=== PATIENT | male | born 1940 | race Caucasian/White ===

== ENCOUNTER 2016-09-21 11:04 | Inpatient (IN) | payer OTHER, MEDICARE ==
[2016-09-21] MEDS ORDERED: DILTIAZEM 5 MG/ML 5 ML VIAL IVP STA (11:43)
--- NOTE | 2016-09-21 11:45 | ED ---
General Adult HPI - General Chief complaint: Chest Pain Stated complaint: Cardiac Issues Time Seen by Provider: 09/21/16 11:27 Source: patient, RN notes reviewed Mode of arrival: EMS Limitations: no limitations - History of Present Illness Initial comments: Patient is a pleasant 76-year-old male presenting to the emergency Department with defibrillator firing. Patient states that has occurred 5 times so far today. Patient admits to not taking his Cardizem recently because he ran out. Patient otherwise feels fine. Patient denies any syncope. No chest pain or dyspnea. Patient is somewhat a poor historian. - Related Data Home Medications Medication Instructions Recorded Confirmed Budesonide-Formot 160-4.5 Mcg 2 puff INHALATION RT-BID 07/09/14 09/21/16 [Symbicort 160-4.5 Mcg Inhaler] Lisinopril-Hctz 20-12.5 mg 1 tab PO DAILY 07/09/14 09/21/16 [Zestoretic 20-12.5] Warfarin [Coumadin] 1.5 mg PO HS 07/09/14 09/21/16 HYDROcodone/APAP 10-325MG [Lopez 0.5 tab PO TID PRN 08/12/14 09/21/16 10-325] Albuterol Nebulized [Ventolin 2.5 mg INHALATION RT-Q6H PRN 09/21/16 09/21/16 Nebulized] Albuterol Sulfate [Proventil Hfa] 2 puff INHALATION RT-Q6H PRN 09/21/16 09/21/16 Furosemide [Lasix] 20 mg PO DAILY PRN 09/21/16 09/21/16 Tiotropium 18 Mcg/Puff [Spiriva] 1 cap INHALATION RT-DAILY 09/21/16 09/21/16 Allergies Allergy/AdvReac Type Severity Reaction Status Date / Time No Known Allergies Allergy Verified 09/21/16 12:00 Review of Systems ROS Statement: Those systems with pertinent positive or pertinent negative responses have been documented in the HPI. ROS Other: All systems not noted in ROS Statement are negative. Constitutional: Denies: fever Eyes: Denies: eye pain ENT: Denies: ear pain Respiratory: Denies: cough, dyspnea Cardiovascular: Denies: chest pain Endocrine: Denies: fatigue Gastrointestinal: Denies: abdominal pain Genitourinary: Denies: dysuria Musculoskeletal: Denies: back pain Skin: Denies: rash Neurological: Denies: weakness Past Medical History Past Medical History: COPD, Myocardial Infarction ([place]), Osteoarthritis ([place]), Pneumonia, Prostate Disorder Additional Past Medical History / Comment(s): See Dr Puja Damon & P, rash on top of head, Last Myocardial Infarction Date:: 2012 History of Any Multi-Drug Resistant Organisms: None Reported Past Surgical History: Heart Catheterization, Tonsillectomy Additional Past Surgical History / Comment(s): cardioversion, cataract removed, left hand finger surgery Past Anesthesia/Blood Transfusion Reactions: Motion Sickness Additional Past Anesthesia/Blood Transfusion Reaction / Comment(s): PT HAS NEVER HAD A BLOOD TRANSFUSION. Past Psychological History: No Psychological Hx Reported Additional Psychological History / Comment(s): PT LIVES ALONE WITH HIS DOG. HIS . HE is INDEPENDENT. HE DRIVES A CAR. Smoking Status: Current every day smoker Past Alcohol Use History: None Reported Additional Past Alcohol Use History / Comment(s): STARTED SMOKING AT AGE 13 SMOKED 1 PPD BUT HAS DECREASED AMOUNT TO 2-3 PER DAY Past Drug Use History: None Reported - Past Family History Father Family Medical History: Cancer, Prostate Disorder Additional Family Medical History / Comment(s): FATHER HAD PROSTATE CANCER Mother Family Medical History: No Reported History Additional Family Medical History / Comment(s): MOTHER IS ALIVE AT 94 AND IN EXCELLENT HEALTH. General Exam Limitations: no limitations General appearance: alert, in no apparent distress Head exam: Present: atraumatic Eye exam: Present: normal appearance, PERRL ENT exam: Present: normal oropharynx Neck exam: Present: normal inspection Respiratory exam: Present: normal lung sounds bilaterally Cardiovascular Exam: Present: tachycardia, irregular rhythm GI/Abdominal exam: Present: soft. Absent: tenderness Extremities exam: Present: normal inspection. Absent: pedal edema, calf tenderness Back exam: Present: normal inspection Neurological exam: Present: alert Psychiatric exam: Present: normal affect, normal mood Skin exam: Absent: rash Course Vital Signs 09/21/16 09/21/16 11:09 12:14 Temperature 98.4 F Pulse Rate 131 H 120 H Respiratory 20 18 Rate Blood Pressure 141/121 171/109 O2 Sat by Pulse 95 99 Oximetry EKG Findings - EKG Comments: EKG Findings:: A. fib with RVR, rate 123. QRS 120. QT 358. QTC 512. Left axis. Right bundle branch block. No acute ST change. Medical Decision Making - Medical Decision Making Patient reexamined and resting comfortably in bed. Patient and family updated on results and plan. Case was discussed in detail with cardiology, Dr. Williamson who does recommend Cardizem drip at 5 per hour. Agrees with no additional anticoagulation at this time. [email or web address] has been consulted however still waiting for device analysis. Dr. Mccain has been paged for admission for Dr. Baker - Lab Data Result diagrams: 09/21/16 11:31 09/21/16 11:31 Lab Results 09/21/16 09/21/16 09/21/16 Range/Units 11:31 11:31 11:31 WBC 6.4 (3.8-10.6) k/uL RBC 4.00 L (4.30-5.90) m/uL Hgb 13.3 (13.0-17.5) gm/dL Hct 41.2 (39.0-53.0) % MCV 103.0 H (80.0-100.0) fL MCH 33.4 (25.0-35.0) pg MCHC 32.4 (31.0-37.0) g/dL RDW 15.2 (11.5-15.5) % Plt Count 152 (150-450) k/uL Neutrophils % 80 % Lymphocytes % 10 % Monocytes % 8 % Eosinophils % 1 % Basophils % 0 % Neutrophils # 5.1 (1.3-7.7) k/uL Lymphocytes # 0.6 L (1.0-4.8) k/uL Monocytes # 0.5 (0-1.0) k/uL Eosinophils # 0.1 (0-0.7) k/uL Basophils # 0.0 (0-0.2) k/uL Macrocytosis Slight PT (9.0-12.0) sec INR (<1.1) APTT (22.0-30.0) sec Sodium 144 (137-145) mmol/L Potassium 4.3 (3.5-5.1) mmol/L Chloride 105 (98-107) mmol/L Carbon Dioxide 28 (22-30) mmol/L Anion Gap 11 mmol/L BUN 14 (9-20) mg/dL Creatinine 0.90 (0.66-1.25) mg/dL Est GFR (MDRD) Af Amer >60 (>60 ml/min/1.73 sqM) Est GFR (MDRD) Non-Af >60 (>60 ml/min/1.73 sqM) Glucose 89 (74-99) mg/dL Calcium 9.4 (8.4-10.2) mg/dL Magnesium 1.6 (1.6-2.3) mg/dL Total Bilirubin 1.4 H (0.2-1.3) mg/dL AST 25 (17-59) U/L ALT 33 (21-72) U/L Alkaline Phosphatase 70 (38-126) U/L Total Creatine Kinase 138 (55-170) U/L CK-MB (CK-2) 5.5 H* (0.0-2.4) ng/mL CK-MB (CK-2) Rel Index 4.0 Troponin I 0.176 H* (0.000-0.034) ng/mL Total Protein 6.6 (6.3-8.2) g/dL Albumin 4.0 (3.5-5.0) g/dL TSH 2.290 (0.465-4.680) mIU/L Free T4 1.14 (0.78-2.19) ng/dL Free T3 pg/mL 3.6 (2.8-5.3) pg/ml 09/21/16 Range/Units 11:31 WBC (3.8-10.6) k/uL RBC (4.30-5.90) m/uL Hgb (13.0-17.5) gm/dL Hct (39.0-53.0) % MCV (80.0-100.0) fL MCH (25.0-35.0) pg MCHC (31.0-37.0) g/dL RDW (11.5-15.5) % Plt Count (150-450) k/uL Neutrophils % % Lymphocytes % % Monocytes % % Eosinophils % % Basophils % % Neutrophils # (1.3-7.7) k/uL Lymphocytes # (1.0-4.8) k/uL Monocytes # (0-1.0) k/uL Eosinophils # (0-0.7) k/uL Basophils # (0-0.2) k/uL Macrocytosis PT 18.4 H (9.0-12.0) sec INR 1.9 (<1.1) APTT 31.2 H (22.0-30.0) sec Sodium (137-145) mmol/L Potassium (3.5-5.1) mmol/L Chloride (98-107) mmol/L Carbon Dioxide (22-30) mmol/L Anion Gap mmol/L BUN (9-20) mg/dL Creatinine (0.66-1.25) mg/dL Est GFR (MDRD) Af Amer (>60 ml/min/1.73 sqM) Est GFR (MDRD) Non-Af (>60 ml/min/1.73 sqM) Glucose (74-99) mg/dL Calcium (8.4-10.2) mg/dL Magnesium (1.6-2.3) mg/dL Total Bilirubin (0.2-1.3) mg/dL AST (17-59) U/L ALT (21-72) U/L Alkaline Phosphatase (38-126) U/L Total Creatine Kinase (55-170) U/L CK-MB (CK-2) (0.0-2.4) ng/mL CK-MB (CK-2) Rel Index Troponin I (0.000-0.034) ng/mL Total Protein (6.3-8.2) g/dL Albumin (3.5-5.0) g/dL TSH (0.465-4.680) mIU/L Free T4 (0.78-2.19) ng/dL Free T3 pg/mL (2.8-5.3) pg/ml - Radiology Data Radiology results: image reviewed (Two-view chest x-ray shows no acute process.) Critical Care Time Critical Care Time: Yes Total Critical Care Time: 33 Disposition Clinical Impression: Defibrillator discharge, Atrial fibrillation, rapid Disposition: ADMITTED IP TO THIS HOSP
[2016-09-21 12:16] LABS: Basophils % (A) 0 %; CH 33.3; CHCM 32.6; Eosinophils # (A) 0.1 k/uL (0-0.7); Eosinophils % (A) 1 %; HCT 41.2 % (39.0-53.0); HDW 2.83; HGB 13.3 gm/dL (13.0-17.5); Luc # (Auto) 0.06; Luc % (Auto) 1; Lymphocytes # (A) 0.6 k/uL (1.0-4.8); Lymphocytes % (A) 10 %; MCH 33.4 pg (25.0-35.0); MCHC 32.4 g/dL (31.0-37.0); Macrocytosis Slight; Mean Platelet Volume 9.3; Monocytes # (A) 0.5 k/uL (0-1.0); Monocytes % (A) 8 %; Neutrophils # (A) 5.1 k/uL (1.3-7.7); Neutrophils % (A) 80 %; RDW 15.2 % (11.5-15.5); WBC 6.4 k/uL (3.8-10.6); WBC (Perox) 6.31
[2016-09-21 12:32] LABS: INR 1.9 (<1.1); Partial Thromboplastin Time 31.2 sec (22.0-30.0); Prothrombin Time 18.4 sec (9.0-12.0)
[2016-09-21 12:39] LABS: ALT 33 U/L (21-72); AST 25 U/L (17-59); Alkaline Phosphatase 70 U/L (38-126); Anion Gap 11 mmol/L; Blood Urea Nitrogen 14 mg/dL (9-20); Calcium 9.4 mg/dL (8.4-10.2); Carbon Dioxide 28 mmol/L (22-30); Chloride 105 mmol/L (98-107); Glucose 89 mg/dL (74-99); Magnesium 1.6 mg/dL (1.6-2.3); Non-African American GFR(MDRD) >60 (>60 ml/min/1.73 sqM); Potassium 4.3 mmol/L (3.5-5.1); Sodium 144 mmol/L (137-145); Total Bilirubin 1.4 mg/dL (0.2-1.3); Total Protein 6.6 g/dL (6.3-8.2)
--- NOTE | 2016-09-21 12:41 | XR ---
EXAMINATION TYPE: XR chest 2V DATE OF EXAM: 09/21/2016 12:37 PM COMPARISON: 01/08/2015. HISTORY: Dysrhythmia FINDINGS: The lungs are clear and there is no pneumothorax, pleural effusion, or focal pneumonia. Hypertrophi c degenerative change of the spine. Cardiomegaly, cardiac device, and hyperinflation suggests COPD. Arthropathy of the shoulders noted. IMPRESSION: 1. No acute process.
[2016-09-21 13:01] LABS: Creatine Kinase MB 5.5 ng/mL (0.0-2.4); Troponin I 0.176 ng/mL (0.000-0.034)
[2016-09-21] MEDS ORDERED: FUROSEMIDE 20 MG TAB PO PRN (13:39)
[2016-09-21] MEDS ORDERED: ALBUTEROL INHALER 60 PUFF/8 GM INHALER INHALATION PRN (13:39)
[2016-09-21] MEDS ORDERED: NITROGLYCERIN SL TABS 0.4 MG TAB SUBLINGUAL PRN (13:44)
[2016-09-21] MEDS ORDERED: DILTIAZEM 125 MG in SODIUM CHLORIDE 0.9% 100 ML IV SCH (14:00)
[2016-09-21] MEDS ORDERED: Magnesium Replacement Protocol 1 EACH MISC MISCELLANE PRN (16:40)
--- NOTE | 2016-09-21 17:07 | CONS ---
DATE OF CONSULTATION: 09/21/2016 CHIEF COMPLAINT: Defibrillator discharge. This is a 76-year-old gentleman with history of cardiomyopathy with congestive heart failure, status post AICD, chronic atrial fibrillation and COPD who comes to hospital having had defibrillator discharge x5. He was in atrial fibrillation with rapid ventricular rate, and the defibrillator went off as a result. His defibrillator had been evaluated and his shocks were the result of atrial fibrillation with RVR. Past medical history is significant for: 1. Cardiomyopathy. 2. Congestive heart failure. 3. Coronary artery disease. 4. COPD. 5. Atrial fibrillation. Medications include: 1. Zestoretic. 2. Coumadin. 3. Albuterol. 4. Symbicort. 5. Lasix. 6. Spiriva. ALLERGIES: NO KNOWN DRUG ALLERGIES. FAMILY HISTORY: Negative for premature coronary artery disease. Social history is significant for smoking. REVIEW OF SYSTEMS: HEENT: Unremarkable. CARDIAC: As described above. RESPIRATORY: As described above. GI: Negative. GENITOURINARY: Negative. ALLERGY/IMMUNOLOGY: Negative. MUSCULOSKELETAL: Significant for arthritis. PSYCHOSOCIAL: Negative. ENDOCRINE: Negative. NEUROLOGIC: Negative. DERMATOLOGY: Negative. CONSTITUTIONAL: Negative. Rest of the system review is not relevant. On exam, comfortable at rest. Heart rate is 85 beats per minute. Blood pressure is 136/60. Respiratory rate is 18. Chest exam reveals diminished air entry at the bases. Heart exam reveals first and second heart sounds, irregular rhythm, and a systolic murmur at the left lower sternal border. Abdomen is soft. Examination of the extremities did not reveal any edema. Peripheral pulses are felt. Troponin is elevated at 0.176. Creatinine is 0.9. Hemoglobin is 13.3. Platelet count is 152. EKG shows atrial fibrillation with rapid ventricular rate with right bundle branch block. INR is 1.9. ASSESSMENT: 1. Status post automatic implantable cardioverter defibrillator discharge. 2. Atrial fibrillation with rapid ventricular rate. 3. Ischemic cardiomyopathy. 4. Coronary artery disease. 5. Mild troponin elevation. 6. Chronic atrial fibrillation with rapid ventricular rate. PLAN: AICD discharge is probably related to the atrial fibrillation with RVR. I am going to review the AICD data. Stop the Cardizem. Start him on Coreg. Patient was out of his medications. Obtain a 2-D echo to document his LV function. We can hopefully discharge him home tomorrow.
[2016-09-21] MEDS: ALBUTEROL NEBULIZED 2.5 MG/3 ML INHALATION PRN ×2 (17:09→20:01)
[2016-09-21] MEDS: CARVEDILOL 6.25 MG TAB PO SCH (17:28)
[2016-09-21] MEDS: MAGNESIUM SULFATE-D5W PMX 1 GM in DEXTROSE/WATER 1 100ML.BAG IVPB SCH ×2 (17:28→19:17)
[2016-09-21] MEDS: HYDROcodone/APAP 10-325MG 1 EACH TAB PO PRN (18:33)
[2016-09-21 19:05] LABS: Creatine Kinase MB 7.8 ng/mL (0.0-2.4); Troponin I 1.34 ng/mL (0.000-0.034)
[2016-09-21] MEDS ORDERED: FUROSEMIDE 10 MG/ML 4 ML VIAL IV STA (19:44)
[2016-09-21] MEDS: SYMBICORT 160-4.5 MCG INHALER INHALATION SCH (20:08)
[2016-09-21 20:09] VITALS: RESP 20
[2016-09-21] MEDS ORDERED: WARFARIN 1.5 MG TAB PO SCH (21:00)
[2016-09-22 01:01] LABS: Creatine Kinase MB 8.2 ng/mL (0.0-2.4); Troponin I 1.12 ng/mL (0.000-0.034)
[2016-09-22] MEDS: HYDROcodone/APAP 10-325MG 1 EACH TAB PO PRN (05:16)
[2016-09-22 05:32] VITALS: PULSE 106
[2016-09-22] MEDS: CARVEDILOL 6.25 MG TAB PO SCH (07:26)
[2016-09-22] MEDS: SYMBICORT 160-4.5 MCG INHALER INHALATION SCH (07:56)
[2016-09-22] MEDS ORDERED: TIOTROPIUM 18 MCG/PUFF INHALER INHALATION SCH (08:00)
[2016-09-22 08:25] VITALS: BP 168/104; TEMP 96.9
--- NOTE | 2016-09-22 08:38 | PN ---
Murphy is a 76-year-old gentleman with history of cardiomyopathy, status post AICD, who presented to the hospital having had multiple defibrillations at home. I reviewed his AICD data. Patient had sustained VT and was successfully shocked and also has had ATP. He was also in A. fib with rapid ventricular rate. This morning he is doing well and has had short runs of nonsustained VT, but otherwise remained in A. fib. He is anxious to go home and will probably sign out if we do not let him go. His BNP was elevated. He is very noncompliant with therapy. He was started back on Lasix yesterday. He was also not taking his beta blockers and KATERINE inhibitors. His troponins have come back elevated probably due to the recurrent shocks that he had. Patient does not have any chest pain. His shortness of breath and leg edema had improved. On exam, heart rate is 106 beats per minute, blood pressure 170/90, respiratory rate 18. Chest exam reveals good air entry bilaterally. Heart exam reveals first and second heart sounds. No gallop. Abdomen is soft. Exam of the extremities revealed trace edema. Patient is currently on Coreg 6.25 b.i.d. He is on Lasix, lisinopril, hydrochlorothiazide. ASSESSMENT: 1. Acute exacerbation of chronic congestive heart failure. 2. Ventricular tachycardia, status post AICD discharge. 3. Atrial fibrillation with rapid ventricular rate. 4. Non-ST segment elevation myocardial infarction. PLAN: I am going to start the patient on amiodarone, increase the dose of Coreg to 12.5 b.i.d. to better control his blood pressure. Continue the KATERINE inhibitors. Continue the Coumadin. Patient I do not think will stay here. Will discharge him home and continue to optimize therapies as outpatient.
[2016-09-22] MEDS ORDERED: LISINOPRIL-HCTZ 20-12.5 MG 1 EACH TAB PO SCH (09:00)
[2016-09-22] MEDS ORDERED: ASPIRIN 325 MG TAB PO SCH (09:00)
[2016-09-22] MEDS ORDERED: AMIODARONE 200 MG TAB PO SCH (09:00)
--- NOTE | 2016-09-22 10:42 | ECHOF ---
Referral Reason:Elevated trops MEASUREMENTS -------- HEIGHT: 182.9 cm WEIGHT: 67.1 kg BP: 170/90 IVSd: 1.1 cm (0.6 - 1.1) LVIDd: 4.7 cm (3.9 - 5.3) LVPWd: 1.2 cm (0.6 - 1.1) IVSs: 1.3 cm LVIDs: 4.6 cm LVPWs: 1.4 cm Ao Diam: 3.8 cm (2.0 - 3.7) AV Cusp: 1.4 cm (1.5 - 2.6) LA Diam: 3.6 cm (2.7 - 3.8) MV EXCURSION: 8.330 mm (> 18.000) MV EF SLOPE: 75 mm/s (70 - 150) EPSS: 1.6 cm MV E Seun: 0.87 m/s MV DecT: 171 ms MV A Seun: 0.53 m/s MV E/A Ratio: 1.63 RAP: 5.00 mmHg RVSP: 34.87 mmHg FINDINGS -------- Sinus rhythm. AICD This was a technically good study. There is borderline concentric left ventricular hypertrophy. There is severe global hypokinesis of LV . Overall left ventricular systolic function is severely impaired with, an EF between 20 - 25 %. The right ventricle is normal in size and function. The left atrium is normal in size. The right atrium is normal in size. Aortic valve is trileaflet and is mildly thickened. The mitral valve leaflets are mildly thickened. Mild mitral regurgitation is present. Moderate tricuspid regurgitation present. The right ventricular systolic pressure, as measured by Doppler, is 34.87mmHg. Pulmonic valve appears structurally normal. The aortic root size is normal. The pericardium is normal. CONCLUSIONS -------- 1. Sinus rhythm. 2. Aortic valve is trileaflet and is mildly thickened. 3. The mitral valve leaflets are mildly thickened. 4. Mild mitral regurgitation is present. 5. Moderate tricuspid regurgitation present. 6. The right ventricular systolic pressure, as measured by Doppler, is 34.87mmHg. 7. Pulmonic valve appears structurally normal. 8. The aortic root size is normal. 9. The pericardium is normal. 10. AICD 11. This was a technically good study. 12. There is borderline concentric left ventricular hypertrophy. 13. There is severe global hypokinesis of LV . 14. Overall left ventricular systolic function is severely impaired with, an EF between 20 - 25 %. 15. The right ventricle is normal in size and function. 16. The left atrium is normal in size. 17. The right atrium is normal in size. CELL BUILDER: Della Marrufo RDCS
--- NOTE | 2016-09-22 10:54 | CDI ---
In responding to this query, please exercise your independent professional judgment. The [facility] Coding Staff and Clinical Documentation Specialists appreciate your assistance in clarifying documentation, maintaining compliance with coding guidelines, accurately documenting patients condition and capturing severity of illness. The fact that a question is asked does not imply that any particular answer is desired or expected. Communication forms are a method of clarifying documentation and are not made part of the Legal Health Record. Thank you in advance for your clarification. Last Revision, October 2015 [facility] [place] [address] [place] [address] Documentation Clarification Form Date: 09/22/2016 10:43:00 AM From: Maritza Weldon RN, CCDS Admit Date: 09/21/2016 1:45:00 PM Patient Name: Murphy Davidson Visit Number: [id number] Dr. Rusty Celeste CHF is documented in the Cardiology progress note. History/Risk Factors: Med noncompliant, CHF, AICD, Atrial Fib, PA this admission, [place] Clinical Indicators: 09/22 Cardiology Progress Note: "Acute exacerbation of chronic congestive heart failure." VS/Pulse OX: temp 98.4, HR 131, RR20, B/P 141/121, spo2 95% 2l NC BNP: 4670 09/22/16 Echocardiogram Results: severe global hypokinesis of LV. EF 20-25% Chest X Ray:- Treatment: Lasix 40mg IVP x1 followed by 20 Mg PO QD Zestoretic 20/12.5 PO QD Consults: cardiology In your professional opinion, can you please clarify the acuity and type of CHF if known? Acute Chronic Acute on Chronic AND Systolic Diastolic Systolic and Diastolic Cor Pulmonale (Right Sided HF w/ Pulmonary HTN) Unable to determine Other, please specify If known, please specify if Heart Failure is due to: Hypertension Rheumatic Fever Please document in your progress notes and discharge summary in order to capture severity of illness and risk of mortality. Include clinical findings that support your diagnosis. FYI: Press F11 to launch patient chart. Place X here if this finding has no clinical significance, is not applicable or if you are not able to provide any additional documentation. MTDD
--- NOTE | 2016-09-29 12:43 | HP ---
This dictation is both H&P and Discharge Summary. DATE OF ADMISSION: DATE OF SERVICE: 09/21/2016 Patient left AMA before being seen by Medical Service.
--- NOTE | 2016-09-30 10:19 | PN ---
ADDENDUM: The patient had acute exacerbation of chronic systolic congestive heart failure. The patient had known cardiomyopathy with severe LV systolic dysfunction. This should be part of the record. This is in response to documentation clarification query.
== END 2016-09-22 11:44 | disposition left against medical advice (07) | DRG 280 ==
LOC: EC 11:04 → 6SEL 13:45
PROVIDERS: ADMIT Internal Medicine; ATTEND Internal Medicine
DX: I21.4 Non-ST elevation (NSTEMI) myocardial infarction (principal); I50.23 Acute on chronic systolic (congestive) heart failure; I47.2 Ventricular tachycardia; I48.2 Chronic atrial fibrillation; J44.9 Chronic obstructive pulmonary disease, unspecified; Z91.19 Patient's noncompliance with other medical treatment and regimen; Z95.810 Presence of automatic (implantable) cardiac defibrillator; I25.10 Atherosclerotic heart disease of native coronary artery without angina pectoris; I25.5 Ischemic cardiomyopathy; F17.200 Nicotine dependence, unspecified, uncomplicated; I25.2 Old myocardial infarction; Z98.49 Cataract extraction status, unspecified eye; M19.90 Unspecified osteoarthritis, unspecified site; N42.9 Disorder of prostate, unspecified; Z79.01 Long term (current) use of anticoagulants; Z79.51 Long term (current) use of inhaled steroids; Z79.899 Other long term (current) drug therapy
CPT/HCPCS: 36415; 71020; 80053; 80061; 82550; 82553; 83735; 83880; 84439; 84443; 84481; 84484; 85025; 85610; 85730; 93005; 93306; 94640; 96365; 96366; 96376; 99291

== ENCOUNTER 2017-01-21 09:01 | Inpatient (IN) | payer MEDICARE ==
[2017-01-21] MEDS ORDERED: MAGNESIUM HYDROXIDE 2,400 MG/10 ML CUP PO PRN (10:24)
[2017-01-21] MEDS ORDERED: MAG HYDROX/AL HYDROX/SIMETH 30 ML CUP PO PRN (10:24)
[2017-01-21] MEDS ORDERED: ACETAMINOPHEN TAB 325 MG TAB PO PRN (10:24)
[2017-01-21] MEDS ORDERED: ALPRAZolam 0.25 MG TAB PO PRN (10:40)
[2017-01-21] MEDS ORDERED: ALBUTEROL INHALER 60 PUFF/8 GM INHALER INHALATION PRN (10:40)
[2017-01-21] MEDS: predniSONE 20 MG TAB PO SCH (12:16)
[2017-01-21] MEDS: FERROUS SULFATE 325 MG TAB PO SCH ×2 (16:59→21:53)
[2017-01-21] MEDS: HYDROcodone/APAP 10-325MG 1 EACH TAB PO PRN ×2 (16:59→23:01)
--- NOTE | 2017-01-21 18:02 | HP ---
IDENTIFYING DATA: Patient is 76, male who is living on his own. Patient presented to the mental health unit on petition and clinical certificate for suicidal ideation HISTORY OF PRESENT ILLNESS: Patient stated that he has been struggling with a lot of physical symptoms and deterioration in his physical health and he went to his primary care physician for check-up and he told his physician that he has been very frustrated, as his breathing is not getting better and he is not capable to be active as before and he said, "I'm going home to shoot myself with a gun." Dr. Mccain was very concerned and petition and clinical certificate was filled. When I talked to the patient about this, he said, "I was joking. I'm just trying to explain to him that I am so depressed because of all these medical problems." Patient talked that his 2 years ago and he was depressed and even according to him, he lost more than 35 pounds and according to him, "She was everything in my life and she in this hospital." However, he stated that for the last year, he is trying to eat more and he gained 20 pounds from what he lost. Patient was just focusing about going home, saying that he has a dog and he needs to take care of the dog and he wanted to get back to his life to pay all his bills because, "No one will help me. I need to be in the house now." Patient was tearful when talking about his . He reports trouble falling asleep and staying asleep. He described high anxiety regarding his physical health, but he denied any current suicidal or homicidal ideation. PAST PSYCHIATRIC HISTORY: There is no previous inpatient or outpatient psychiatric history. There is no previous suicidal attempt. FAMILY HISTORY OF PSYCHIATRIC ILLNESS: Patient is not aware about any mental illness in the family. SUBSTANCE ABUSE HISTORY: Nicotine: He has been smoking 1/2 pack a day. Alcohol: He used to drink when he was teen-aged, but not anymore. ALLERGIES: There no known allergy. MEDICAL HISTORY: 1. COPD and patient is on oxygen 3L. 2. History of sciatica. 3. Back pain. 4. Asthma. 5. Scoliosis. 6. Hypertension. 7. Atrial fibrillation. 8. History of myocardial infarction. 9. Enlarged prostate. SURGICAL HISTORY: History of cardioversion, cataract surgery, left hand ring finger surgery. His home medication: 1. Xanax 0.25, 3 times a day as needed. 2. Cordarone 200 mg daily. 3. Tenormin 25 twice a day. 4. Eliquis 5 mg twice a day. 5. Albuterol inhaler. 6. Ferrous sulfate 3 times a day. 7. Lasix 20 mg a day. 8. [place] for pain p.r.n. 9. Lipitor 20 mg a day. 10. Protonix once a day. 11. Prednisone. He is on weaning, 5 or 6 days to be weaned off prednisone. 12. Flomax 0.4 mg daily. SOCIAL HISTORY: Patient stated that he was in the [employer] from 1957 until 1963. He has honorable discharge. 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 Patient has one younger brother who is living in [place] and patient did not see him for almost 25 years Patient was for 60 years and his a couple of years ago and he has 3 grown-up children. His daughter is living in [place] and he has 2 sons living [place]. Patient retired at age 60. Currently he is living in his house on his own. He still driving; however, he stated that he does not cook and has hard time to clean the house. He is depending on frozen food or TV dinner, according to what he said. For the last year, he has a female friend. Her name is Jenny. She comes to visit him 2 or 3 times a week just to have coffee with him. MENTAL STATUS EXAMINATION: Patient is elderly male who looks his stated age. He is dressed in hospital gown and ( ) poor hygiene. He gives good eye contact. Speech is spontaneous, coherent and goal directed. Focusing about being discharged to go back home, as he is worried about the dog. Thought process is linear and goal-directed. There is no evidence of looseness of association or flight of idea. He endorses depressed mood, tearful at times when talking about his , but he denied any suicidal intent or plan. He denied any homicidal ideation. His affect is appropriate to thought content. He denied any auditory or visual hallucination or delusion. He does not appear hypomanic or manic. He is very somatically preoccupied, having difficulty to accept deterioration of his physical health. His insight and judgment are limited. Cognitive function is intact. He is alert and oriented to person, place and date. Intellectual function is average. STRENGTHS: Very good support system. WEAKNESS: Multiple medical issues, grieving and the loss of his . IMPRESSION: 1. 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 2. Prolonged grief reaction. 3. Multiple medical problems. 4. Psychosocial dysfunction due to depression, grief and a lot of medical issues. PLAN: The patient has been admitted to the mental health unit on involuntary basis. I will pursue to fill clinical certificate I will proceed to treat his depressive symptoms by adding low dose of Lexapro. Will request a routine medical consultation. Social Work will meet with the patient and trying to contact his children to remove any guns from home and to complete psychosocial assessment and begin discharge planning. Will monitor the patient for safety and encourage him to participate in milieu.
--- NOTE | 2017-01-21 18:22 | CONS ---
DATE OF CONSULTATION: REASON FOR CONSULTATION: Medical history and physical on a patient admitted to the psych floor. HISTORY OF PRESENT ILLNESS: This is a 76-year-old gentleman discharged by me from [facility] after patient was admitted to the hospital with significant weakness. Patient was noted to have supratherapeutic INR. Patient was on Coumadin, maintained for chronic atrial fibrillation at that time. Patient was given multiple doses of vitamin K. INR appears to be appropriate thereafter. Patient was also noted to have an acute exacerbation of COPD, as patient has active ongoing tobacco use. During the hospitalization, patient's hemoglobin was stable, around 9.1 today on discharge. His baseline hemoglobin is about 12.5. Today patient is seen in consultation and states he is feeling better. Patient was transferred to this hospital, as patient stated he wanted to kill himself due to his chronic medical conditions. Denies having any headaches, blurry vision, significant breathing difficulty, nausea, vomiting, diarrhea. Medications were reviewed and appropriately reconciled. Past medical history includes: 1. CHF with preserved EF. 2. Chronic atrial fibrillation. 3. Chronic hypoxic respiratory failure. 4. COPD. 5. Ongoing tobacco use. 6. Anxiety. 7. Iron deficiency anemia. FAMILY HISTORY: Not pertinent to the current admission. SOCIAL HISTORY: Lives alone. Ongoing tobacco use. No significant alcohol or drug use noted. PHYSICAL EXAM: VITALS: Temperature 98, heart rate 68, respiratory rate 18, blood pressure 109/58. Saturating well on 2 L supplemental oxygen. GENERAL APPEARANCE: Alert, oriented x3. Does not appear to be in distress. Neck is supple. No JVD. HEAD: Atraumatic, normocephalic. Pupils equal, round and reactive to light and accommodation. LUNGS: Diminished breath sounds; however, no wheezing or rhonchi noted. ABDOMEN: Soft, nontender. No organomegaly. LOWER EXTREMITIES: No edema noted. NEURO: No focal motor or sensory deficits noted. ASSESSMENT AND PLAN: 1. Major depression with concern for suicidal ideation. 2. Recent acute chronic obstructive pulmonary disease exacerbation with no significant acute component. 3. Chronic atrial fibrillation. 4. Iron deficiency anemia. 5. Heart failure with preserved ejection fraction that is stable. 6. Severe protein-calorie malnutrition. 7. Recent blood loss anemia due to supratherapeutic INR. PLAN: Will hold off on Eliquis until patient follows up with Dr. Abby Buenrostro in 1 to 2 weeks. Patient has had a GI workup in the past; could follow up with GI prior to initiating a novel anticoagulant like Eliquis or Xarelto. Patient's INR today was 1.4; hence we will discontinue vitamin K as well. This was discussed with the patient.
[2017-01-21] MEDS: SYMBICORT 160-4.5 MCG INHALER INHALATION SCH (20:41)
[2017-01-21] MEDS: DOXYCYCLINE 50 MG CAP PO SCH (20:47)
[2017-01-21] MEDS: ATENOLOL 25 MG TAB PO SCH (20:47)
[2017-01-21] MEDS: ATORVASTATIN 20 MG TAB PO SCH (20:47)
[2017-01-21] MEDS ORDERED: APIXABAN 5 MG TAB PO SCH (21:00)
[2017-01-22] MEDS: PANTOPRAZOLE 40 MG TABLET PO SCH (08:53)
[2017-01-22] MEDS: FERROUS SULFATE 325 MG TAB PO SCH ×3 (08:53→21:08)
[2017-01-22] MEDS: ESCITALOPRAM 10 MG TAB PO SCH (08:53)
[2017-01-22] MEDS: FUROSEMIDE 20 MG TAB PO SCH (08:53)
[2017-01-22] MEDS: TAMSULOSIN 0.4 MG CAP.ER.24H PO SCH (08:53)
[2017-01-22] MEDS: ATENOLOL 25 MG TAB PO SCH ×2 (08:54→21:08)
[2017-01-22] MEDS: SYMBICORT 160-4.5 MCG INHALER INHALATION SCH ×2 (08:54→20:16)
[2017-01-22] MEDS: AMIODARONE 200 MG TAB PO SCH (08:54)
[2017-01-22] MEDS: DOXYCYCLINE 50 MG CAP PO SCH ×2 (08:54→21:08)
[2017-01-22] MEDS: predniSONE 20 MG TAB PO SCH (08:55)
[2017-01-22] MEDS ORDERED: PHYTONADIONE ORAL 5 MG/5 ML ORAL.SYRG PO SCH (09:00)
--- NOTE | 2017-01-22 13:26 | P.PN ---
Progress Note - Text Interval history: Patient seen in cross coverage today for Dr. Smith. He says that he didn't really sleep that well last night but normally his sleep is up and down. He does seem [id number] lunch. He does not seem to voice any adverse psychotropic medication side effects. He makes reference to having been here for a week, per chart history he was seen initially yesterday. He seems to inquire regarding discharge planning. Mental status exam: He is alert and cooperative with the interview. His affect does show range. He describes his mood is doing good. He denies any thoughts of harm to self or others. He does not verbalize any auditory or visual hallucinations. He does not show any agitation. Plan: We'll continue to monitor this patient for Dr. Smith through the weekend. Maintain current psychotropic medication regimen. We will monitor for any medication side effects.
[2017-01-22] MEDS: HYDROcodone/APAP 10-325MG 1 EACH TAB PO PRN ×2 (13:53→21:12)
[2017-01-22] MEDS: ATORVASTATIN 20 MG TAB PO SCH (21:08)
[2017-01-23] MEDS: HYDROcodone/APAP 10-325MG 1 EACH TAB PO PRN ×3 (03:55→20:04)
[2017-01-23] MEDS: predniSONE 20 MG TAB PO SCH (08:47)
[2017-01-23] MEDS: DOXYCYCLINE 50 MG CAP PO SCH ×2 (08:47→20:06)
[2017-01-23] MEDS: TAMSULOSIN 0.4 MG CAP.ER.24H PO SCH (08:48)
[2017-01-23] MEDS: ESCITALOPRAM 10 MG TAB PO SCH (08:48)
[2017-01-23] MEDS: FUROSEMIDE 20 MG TAB PO SCH (08:48)
[2017-01-23] MEDS: FERROUS SULFATE 325 MG TAB PO SCH ×3 (08:48→20:06)
[2017-01-23] MEDS: PANTOPRAZOLE 40 MG TABLET PO SCH (08:48)
[2017-01-23] MEDS: SYMBICORT 160-4.5 MCG INHALER INHALATION SCH ×2 (11:09→21:09)
[2017-01-23] MEDS: AMIODARONE 200 MG TAB PO SCH (12:56)
[2017-01-23] MEDS: ATENOLOL 25 MG TAB PO SCH ×2 (12:56→20:06)
--- NOTE | 2017-01-23 16:04 | P.PN ---
Progress Note - Text Interval history: Patient is seen in cross coverage today for Dr. Smith. He reports that he feels like there is a misunderstanding regarding his admission. He did have a family meeting yesterday which seemed to go well. Seems to relay that he sleeping okay. He does report wanting to be old to go home to continue with his outpatient treatment. Mental status exam: He is found in his room lying in bed. He is cooperative to come to the interview room. Speech is fluent, not rapid or pressured. His affect shows range. He seems to describe his mood is doing well. He denies any thoughts of harm to self or others. No evidence of agitation. He does not verbalize any hallucinations. Plan: We will maintain current psychotropic medication regimen. Dr. Smith to resume care this patient starting tomorrow.
[2017-01-23] MEDS: ATORVASTATIN 20 MG TAB PO SCH (20:06)
[2017-01-24] MEDS: HYDROcodone/APAP 10-325MG 1 EACH TAB PO PRN ×2 (03:16→11:41)
[2017-01-24 06:51] VITALS: TEMP 97.7
[2017-01-24] MEDS: SYMBICORT 160-4.5 MCG INHALER INHALATION SCH (10:15)
[2017-01-24] MEDS: AMIODARONE 200 MG TAB PO SCH (10:30)
[2017-01-24] MEDS: FUROSEMIDE 20 MG TAB PO SCH (10:30)
[2017-01-24] MEDS: TAMSULOSIN 0.4 MG CAP.ER.24H PO SCH (10:30)
[2017-01-24] MEDS: ATENOLOL 25 MG TAB PO SCH (10:30)
[2017-01-24] MEDS: DOXYCYCLINE 50 MG CAP PO SCH (10:30)
[2017-01-24] MEDS: PANTOPRAZOLE 40 MG TABLET PO SCH (10:30)
[2017-01-24] MEDS: ESCITALOPRAM 10 MG TAB PO SCH (10:32)
[2017-01-24] MEDS: FERROUS SULFATE 325 MG TAB PO SCH (10:32)
[2017-01-24] MEDS: predniSONE 20 MG TAB PO SCH (10:33)
[2017-01-24 10:38] VITALS: BP 128/74; PULSE 61; RESP 20
[2017-01-24 15:14] VITALS: BMI 19.3
--- NOTE | 2017-01-25 09:31 | DS ---
DATE OF ADMISSION: 01/21/2017 DATE OF DISCHARGE: 01/24/2017 CONSULT PHYSICIAN: Routine. CONSULTING PROVIDER: Dr. Bhavesh Mccain. CONSULT REASON: Medical management. Do you want consulting provider notified? He already had been notified. DISCHARGE DIAGNOSES: 1. Adjustment disorder with mixed emotion. 2. Depression due to physical illness. 3. Unspecified anxiety. BRIEF SUMMARY OF THE ADMISSION NOTE: Please refer to my initial psychiatric evaluation. Patient was admitted on involuntary basis for anxiety, stress and suicidal ideation. The patient was seen in the medical clinic for follow up for his medical condition and at that time he did verbalize suicidal ideation as he said, "I will go home to shoot myself". So Dr. Mccain was very concerned and did pursue involuntary transfer to our unit. Patient refused to sign himself in; however, he deferred on Tuesday. SUMMARY OF THE HOSPITAL COURSE: Patient was admitted to the mental health unit on petition and clinical certificate. Once he was admitted to the mental health unit I did review his psychiatric medication and I did discuss with him that I will discontinue all benzodiazepine as he was on Xanax 0.25 as needed for anxiety and I did start him on low dose of Lexapro. Patient was able to tolerate medication without any side effect. From the first day patient denied any suicidal ideation, and he stated that he has a very good support system and he just gets frustrated with his medical problems. Our social insurance administrator did contact the patient [id number] Nadya and also his son Gutierrez. Both them did confirm that there is no gun in the patient's home and they stated that the patient's neighbor, Radha, has been taking care of the patient's dog. I did contact his daughter in [place] who is a psychologist who stated that she does not feel her dad is suicidal and she does not feel that he needs to be in psychiatric facility. Patient stated that he lost his 2 years ago. However, he has been able to get over his grief and currently he has been very active with a couple of friends but he has hard time to accept deterioration of his medical problems especially his chronic COPD. Patient was very active in one-to-one; however, he did not attend any group therapy, but he was able to take care of his basic needs. Patient was evaluated by nursing staff on daily basis, and throughout his hospitalization he denied any psychotic feature. He denied any suicidal ideation. MENTAL STATUS EXAMINATION: At the time of the discharge, patient is very pleasant, friendly, elderly man who was wearing hospital gown. Speech is spontaneous, non-pressured. Thought process is linear. He denied any homicidal or suicide ideation, intent or plan. He does not feel hopeless or helpless. There is no evidence of hypomania or sharon. There is no evidence of psychosis. Insight and judgment are fair. There is no verbal or physical aggression had been observed. PLAN: 1. The patient will be discharged from the mental health unit today to return home. 2. Patient was given prescription for Lexapro 10 mg daily. 3. Patient was instructed to discontinue Xanax and also to cut down on his pain medication. 4. Patient is able to complete his activities of daily living and he denied any suicidal ideation. There is no eminent safety risk and he is appropriate for transition to outpatient care. Patient condition at the time of the discharge, stable.
== END 2017-01-24 14:29 | disposition home or self-care (01) | DRG 882 ==
LOC: 3MHU 09:01
PROVIDERS: ADMIT Psychiatry & Neurology Psychiatry; ATTEND Psychiatry & Neurology Psychiatry
DX: F43.23 Adjustment disorder with mixed anxiety and depressed mood (principal); E43 Unspecified severe protein-calorie malnutrition; J96.11 Chronic respiratory failure with hypoxia; R45.851 Suicidal ideations; I50.32 Chronic diastolic (congestive) heart failure; I11.0 Hypertensive heart disease with heart failure; D50.0 Iron deficiency anemia secondary to blood loss (chronic); F17.200 Nicotine dependence, unspecified, uncomplicated; I48.2 Chronic atrial fibrillation; J44.9 Chronic obstructive pulmonary disease, unspecified; M54.30 Sciatica, unspecified side; M41.9 Scoliosis, unspecified; J45.909 Unspecified asthma, uncomplicated; N40.0 Benign prostatic hyperplasia without lower urinary tract symptoms; I25.2 Old myocardial infarction; Z68.1 Body mass index [BMI] 19.9 or less, adult; Z99.81 Dependence on supplemental oxygen; Z79.01 Long term (current) use of anticoagulants; Z79.899 Other long term (current) drug therapy
CPT/HCPCS: 84443; 94640

== ENCOUNTER 2023-02-20 12:10 | Inpatient (IN) | payer OTHER, MEDICARE ==
[~2023-02-20 12:10] MED LIST: MIDAZOLAM 1 MG/ML 5 ML VIAL IV STA; SUCCINYLCHOLINE CHLORIDE 200 MG/10 ML VIAL IV STA
[2023-02-20 12:16] LABS: Glucose,Whole Blood 180 mg/dL (70-110)
[2023-02-20] MEDS ORDERED: methylPREDNISolone SOD SUCCI 125 MG/2 ML VIAL IV STA (12:22)
[2023-02-20] MEDS ORDERED: LORazepam 2 MG/ML INJ IV PRN ×2 (12:23)
[2023-02-20] MEDS ORDERED: IPRATROPIUM-ALBUTEROL 3 ML NEB INHALATION PRN (12:23)
[2023-02-20 12:47] LABS: Basophils % (A) 0 %; Eosinophils % (A) 0 %; HCT 28.3 % (39.0-53.0); HGB 8.5 gm/dL (13.0-17.5); Hypochromasia Marked; Lymphocytes # (A) 0.8 k/uL (1.0-4.8); Lymphocytes % (A) 7 %; MCH 32.1 pg (25.0-35.0); MCHC 30.2 g/dL (31.0-37.0); MCV 106.3 fL (80.0-100.0); Macrocytosis Moderate; Mean Platelet Volume 8.7; Monocytes # (A) 0.8 k/uL (0-1.0); Monocytes % (A) 7 %; Neutrophils # (A) 9.9 k/uL (1.3-7.7); Neutrophils % (A) 85 %; Platelet Count 198 k/uL (150-450); RBC 2.66 m/uL (4.30-5.90); RDW 13.7 % (11.5-15.5); WBC 11.7 k/uL (3.8-10.6)
[2023-02-20] MEDS ORDERED: NOREPINEPHRINE 32 MG in SODIUM CHLORIDE 0.9% 218 ML IV ONE (12:48)
--- NOTE | 2023-02-20 12:48 | ED ---
General Adult HPI - General Chief complaint: Shortness of Breath Stated complaint: CPR Time Seen by Provider: 02/20/23 12:10 Source: EMS, RN notes reviewed Mode of arrival: EMS Limitations: altered mental status, physical limitation - History of Present Illness Initial comments: Patient is unresponsive 82-year-old male presenting to the emergency department by EMS for respiratory distress. Patient does have history of COPD and CHF. Patient had respiratory failure and PEA and was in arrest for approximately 1 minute. EMS did provide CPR. They did have return of pulse. Patient is unresponsive on arrival and provides no further history. - Related Data Home Medications Medication Instructions Recorded Confirmed HYDROcodone/APAP 10-325MG [Elsie 1 tab PO Q6H PRN 08/12/14 02/20/23 10-325] Albuterol Sulfate [Proventil Hfa] 2 puff INHALATION RT-QID PRN 09/21/16 02/20/23 Apixaban [Eliquis] 5 mg PO BID 01/21/17 02/20/23 Atorvastatin [Lipitor] 10 mg PO HS 01/21/17 02/20/23 Ferrous Sulfate [Feosol] 325 mg PO BID 01/21/17 02/20/23 Tamsulosin HCl [Flomax] 0.4 mg PO DAILY 01/21/17 02/20/23 Albuterol Nebulized [Ventolin 2.5 mg INHALATION RT-Q4H PRN 02/20/23 02/20/23 Nebulized] Ascorbic Acid [Vitamin C] 1,000 mg PO DAILY 02/20/23 02/20/23 Budesonide [Pulmicort] 0.5 mg INHALATION RT-BID 02/20/23 02/20/23 Cholecalciferol [Vitamin D3 (125 250 mcg PO DAILY 02/20/23 02/20/23 Mcg = 5000 Iu)] Cyanocobalamin (Vitamin B-12) 1,000 mcg PO DAILY 02/20/23 02/20/23 [Vitamin B-12] Famotidine 40 mg PO DAILY 02/20/23 02/20/23 Fluticasone Propion/Salmeterol 1 puff INHALATION RT-BID 02/20/23 02/20/23 [Wixela 500-50 Inhub] Furosemide [Lasix] 40 mg PO DAILY 02/20/23 02/20/23 Metoprolol Succinate (ER) [Toprol 12.5 mg PO BID 02/20/23 02/20/23 XL] Montelukast [Singulair] 10 mg PO DAILY 02/20/23 02/20/23 Multivit-Min/FA/Lycopen/Lutein 1 tab PO DAILY 02/20/23 02/20/23 [Centrum Silver Men Tablet] Potassium Gluconate 99 mg PO DAILY 02/20/23 02/20/23 Pramipexole [Mirapex] 0.25 mg PO HS 02/20/23 02/20/23 Tiotropium 2.5 Mcg/Puff [Spiriva 2 puff INHALATION RT-DAILY 02/20/23 02/20/23 Respimat 2.5 Mcg] Zinc Gluconate [Zinc] 50 mg PO DAILY 02/20/23 02/20/23 Allergies Allergy/AdvReac Type Severity Reaction Status Date / Time lisinopril AdvReac Bleeding Verified 02/20/23 15:03 warfarin AdvReac Bleeding Verified 02/20/23 15:03 Review of Systems ROS Statement: Those systems with pertinent positive or pertinent negative responses have been documented in the HPI. ROS Other: All systems not noted in ROS Statement are negative. Limitations: ROS unobtainable due to patients medical condition Respiratory: Reports: dyspnea Past Medical History Past Medical History: Atrial Fibrillation, Asthma, COPD, Hypertension, Myocardial Infarction (NM), Osteoarthritis (OA), Pneumonia, Prostate Disorder Additional Past Medical History / Comment(s): See Dr Luo H & P, rash on top of head, O2 -3 LITERS N/C,PREVIOUSLY NOTED THAT PT HAD HX OF NM PT WAS'NT AWARE OF THIS. BACK PAIN, SCIATIC NERVE PAIN, ASTHMA/BRNCHITIS, DDD,SCOLIOSIS Last Myocardial Infarction Date:: 2012 History of Any Multi-Drug Resistant Organisms: None Reported Past Surgical History: AICD, Heart Catheterization, Tonsillectomy Additional Past Surgical History / Comment(s): cardioversion, cataracts removed, left hand pink finger surgery Past Anesthesia/Blood Transfusion Reactions: Motion Sickness Additional Past Anesthesia/Blood Transfusion Reaction / Comment(s): PT HAS NEVER HAD A BLOOD TRANSFUSION. Type of Cardiac Device: AICD Device Placement Date:: 2014 Past Psychological History: No Psychological Hx Reported Smoking Status: Unknown if ever smoked Past Alcohol Use History: None Reported Past Drug Use History: None Reported - Past Family History Father Family Medical History: Cancer, Prostate Disorder Additional Family Medical History / Comment(s): FATHER HAD PROSTATE CANCER Mother Family Medical History: No Reported History Additional Family Medical History / Comment(s): MOTHER IS ALIVE AT 94 AND IN EXCELLENT HEALTH. General Exam Limitations: altered mental status, physical limitation General appearance: obtunded, other (Gag not present) Head exam: Present: atraumatic Eye exam: Present: normal appearance Pupils: Present: mydriatic ENT exam: Present: normal oropharynx Neck exam: Present: normal inspection Respiratory exam: Present: respiratory distress, decreased breath sounds Cardiovascular Exam: Present: tachycardia, irregular rhythm Expanded Peripheral pulses: 1+: Radial (R), Radial (L), Femoral (R), Femoral (L) GI/Abdominal exam: Present: soft. Absent: tenderness Extremities exam: Present: normal inspection Neurological exam: Present: altered, other (Unresponsive) Expanded Neurological exam: Absent: protecting the airway Eye Response: (1) no response Motor Response: (1) no motor response Verbal Response: (1) no verbal response Psychiatric exam: Present: other (Unresponsive) Skin exam: Present: normal color Course Vital Signs 02/20/23 02/20/23 02/20/23 12:11 12:20 12:25 Temperature Pulse Rate 144 H 166 H 116 H Respiratory 10 L 20 20 Rate Blood Pressure 103/83 78/56 85/63 O2 Sat by Pulse 84 L 98 99 Oximetry Fraction of 100 Inspired Oxygen (FIO2) 02/20/23 02/20/23 02/20/23 12:30 12:35 12:40 Temperature Pulse Rate 107 H 117 H 122 H Respiratory 20 20 20 Rate Blood Pressure 57/30 184/98 99/69 O2 Sat by Pulse 99 99 Oximetry Fraction of Inspired Oxygen (FIO2) 02/20/23 02/20/23 02/20/23 12:45 12:50 12:52 Temperature Pulse Rate 101 H 100 Respiratory 20 20 Rate Blood Pressure 90/64 94/66 O2 Sat by Pulse 100 100 Oximetry Fraction of 100 Inspired Oxygen (FIO2) 02/20/23 02/20/23 02/20/23 12:58 13:05 13:07 Temperature Pulse Rate 101 H 92 90 Respiratory 20 20 20 Rate Blood Pressure 79/67 74/55 95/68 O2 Sat by Pulse 99 100 100 Oximetry Fraction of Inspired Oxygen (FIO2) 02/20/23 02/20/23 02/20/23 13:23 13:40 13:45 Temperature Pulse Rate 90 84 Respiratory 20 20 Rate Blood Pressure 83/51 93/58 O2 Sat by Pulse 100 100 Oximetry Fraction of 100 Inspired Oxygen (FIO2) 02/20/23 02/20/23 02/20/23 13:55 14:05 14:12 Temperature Pulse Rate 90 90 80 Respiratory 20 Rate Blood Pressure 111/68 110/87 67/30 O2 Sat by Pulse 100 Oximetry Fraction of Inspired Oxygen (FIO2) 02/20/23 02/20/23 02/20/23 14:34 15:54 16:00 Temperature 98.0 F Pulse Rate 74 78 70 Respiratory 20 20 Rate Blood Pressure 94/51 99/64 106/63 O2 Sat by Pulse 98 100 Oximetry Fraction of Inspired Oxygen (FIO2) 02/20/23 16:20 Temperature Pulse Rate Respiratory Rate Blood Pressure O2 Sat by Pulse Oximetry Fraction of 100 Inspired Oxygen (FIO2) - Reevaluation(s) Reevaluation #1: 02/20/23 18:04 There is concern for septic shock diagnosed at 1335. Blood culture, lactic acid, and IV antibiotics were all ordered. Central line placement with pressors. EKG Findings - EKG Results: EKG: interpreted by ERMD (Right bundle-branch block. Nonspecific T waves.), normal axis EKG shows: tachycardia, atrial fibrillation Procedures - Procedures Initial comment: thoravent Placed right anterior chest. Second intercostal space midclavicular line. Area prepped with chlorhexidine. Sterile field use. Emergent situation. Thora vent placed without complication. Skin was incised with [address] with bandage included. - Chest Tube Insertion Consent Obtained: emergent situation Side of Procedure: right Indication: Pneumothorax Placed on monitor/pulse oximetry: Yes Site Prep: Chloroprep Local Anesthesia: Lidocaine 1% Insertion Site: 5th Intercostal Space, Midaxillary Scalpel: #10 Open into Pleural Space Using: Hemostats Tube Size ([place] Citizen): Other (24) Returns: Air Sutured in Place: Yes Type of Suture: Nylon Dressing Applied: Petroleum Gauze Attached to Suction: Yes Type of Suction: Pleuravac - Sepsis Sepsis Focused Exam #1 Time Sepsis Criteria Met: 13:35 Sepsis Focused Exam Date: 02/20/23 Sepsis Focused Exam Time: 18:04 Sepsis Focused Exam Complete: Yes Vital Signs & RN Notes Reviewed: Yes Capillary Refill: < 2 Seconds: Fingers, Toes Peripheral Pulses: Normal: Radial (R), Radial (L) Skin Color: Normal for Patient Respiratory Exam: decreased breath sounds Cardiovascular Exam: tachycardia, irregular rhythm Medical Decision Making - Medical Decision Making Case was discussed with Dr. Guevara who will consult. He did review chest x-ray. He agrees with computed tomography scan. He agrees with holding a chest tube at this time. 1344: Family is present and updated. Additional history taken from family. Patient has been going to [facility]. Patient has missed his last couple of appointments. Patient does have history of severe COPD and recent severe pneumonia a few months ago. Patient is full code. Was pt. sent in by a medical professional or institution (, PA, PRIEST, urgent care, hospital, or care home...) When possible be specific @ -[No] Did you speak to anyone other than the patient for history (EMS, parent, family, police, friend...)? What history was obtained from this source @ -EMS provides history as patient is unresponsive Did you review nursing and triage notes (agree or disagree)? Why? @ -[I reviewed and agree with nursing and triage notes] Were old charts reviewed (outside hosp., previous admission, EMS record, old EKG, old radiological studies, urgent care reports/EKG's, care home records)? Report findings @ -Previous chest x-ray from 2017 reviewed Differential Diagnosis (chest pain, altered mental status, abdominal pain women, abdominal pain men, vaginal bleeding, weakness, fever, dyspnea, syncope, headache, dizziness, GI bleed, back pain, seizure, CVA, palpatations, mental health, musculoskeletal)? @ -Differential Dyspnea: Coronary syndrome, arrhythmia, tamponade, asthma, COPD, pulmonary embolism, pneumonia, pneumothorax, pulmonary effusion, anaphylaxis, diabetic ketoacidosis, flailed chest, pulmonary contusion, diaphragmatic rupture, anemia, neuromuscular, this is not meant to be an all-inclusive list. EKG interpreted by me (3pts min.). @ -[As above] X-rays interpreted by me (1pt min.). @ -Original chest x-ray shows left lower lobe infiltrate with possible trace pneumothorax right base. ET tube in place. Repeat chest x-ray, #2 shows interval placement of thoracostomy tube with large/moderate pneumothorax. Lateral chest x-ray shows appropriate placement of tube. Chest x-ray over 4 shows no improvement of pneumothorax eyes. Tube in place. Chest x-ray #5 shows additional chest tube with improvement of pneumothorax. Endotracheal tube in place. Thora vent in place. CT interpreted by me (1pt min.). @ -Chest x-ray shows moderate right-sided pneumothorax. Left lower infiltrate U/S interpreted by me (1pt. min.). @ -[None done] What testing was considered but not performed or refused? (CT, X-rays, U/S, labs)? Why? @ -[None] What meds were considered but not given or refused? Why? @ -[None] Did you discuss the management of the patient with other professionals (professionals i.e. , PA, PRIEST, lab, RT, psych nurse, social insurance specialist, obstetrical anesthesiologist, te acher, resident medical officer, wrapper caser)? Give summary @ -Case was discussed multiple times with Dr. Guevara, he did review x-rays and will consult for critical care. Case also discussed with Dr. Lawrence, who will admit covering hospital call. Was smoking cessation discussed for >3mins.? @ -[No] Was critical care preformed (if so, how long)? @ -85 minutes critical care time Were there social determinants of health that impacted care today? How? (Homelessness, low income, unemployed, alcoholism, drug addiction, transportation, low edu. Level, literacy, decrease access to med. care, assisted, r ehab)? @ -[No] Was there de-escalation of care discussed even if they declined (Discuss DNR or withdrawal of care, Hospice)? DNR status @ -[No] What co-morbidities impacted this encounter? (DM, HTN, Smoking, COPD, CAD, Cance r, CVA, ARF, Chemo, Hep., AIDS, mental health diagnosis, sleep apnea, morbid obesity)? @ -[None] Was patient admitted / discharged? Hospital course, mention meds given and route, prescriptions, significant lab abnormalities, going to OR and other pertinent info. @ -Patient presented with CPR and respiratory failure. Patient had poor respir ation arrival and was immediately intubated. Patient did have tiny pneumothorax that increased, likely from ventilation. Thora vent was placed without improvement of pneumothorax. This was followed by full chest tube with improvement of pneumothorax. Case was discussed with Steffen bravo/critical care multiple times. Family was updated multiple times. Patient did have central line placed and is on pressors. Admission orders written. Undiagnosed new problem with uncertain prognosis? @ -[No] Drug Therapy requiring intensive monitoring for toxicity (Heparin, Nitro, Insulin, Cardizem)? @ -[No] Were any procedures done? @ -[See above] Diagnosis/symptom? @ -Right pneumothorax, respiratory failure, COPD, pneumonia Acute, or Chronic, or Acute on Chronic? @ -Acute, acute, acute on chronic, acute Uncomplicated (without systemic symptoms) or Complicated (systemic symptoms)? @ -Respiratory failure is Here with pneumothorax and hypotension Side effects of treatment? @ -[No] Exacerbation, Progression, or Severe Exacerbation? @ -[No] Poses a threat to life or bodily function? How? (Chest pain, [place], NM, pneumonia, PE, COPD, DKA, ARF, appy, cholecystitis, CVA, Diverticulitis, Homicidal, Suicidal, threat to staff... and all critical care pts) @ -Threat to life hypoxia and pneumothorax and respiratory failure - Lab Data Result diagrams: 02/20/23 12:37 02/20/23 12:40 Lab Results 02/20/23 02/20/23 02/20/23 Range/Units 12:15 12:37 12:37 WBC 11.7 H (3.8-10.6) k/uL RBC 2.66 L (4.30-5.90) m/uL Hgb 8.5 L (13.0-17.5) gm/dL Hct 28.3 L (39.0-53.0) % MCV 106.3 H (80.0-100.0) fL MCH 32.1 (25.0-35.0) pg MCHC 30.2 L (31.0-37.0) g/dL RDW 13.7 (11.5-15.5) % Plt Count 198 (150-450) k/uL MPV 8.7 Neutrophils % 85 % Lymphocytes % 7 % Monocytes % 7 % Eosinophils % 0 % Basophils % 0 % Neutrophils # 9.9 H (1.3-7.7) k/uL Lymphocytes # 0.8 L (1.0-4.8) k/uL Monocytes # 0.8 (0-1.0) k/uL Eosinophils # 0.0 (0-0.7) k/uL Basophils # 0.0 (0-0.2) k/uL Hypochromasia Marked Macrocytosis Moderate PT 11.1 (9.0-12.0) sec INR 1.1 (<1.2) APTT 25.0 (22.0-30.0) sec Sodium (137-145) mmol/L Potassium (3.5-5.1) mmol/L Chloride (98-107) mmol/L Carbon Dioxide (22-30) mmol/L Anion Gap mmol/L BUN (9-20) mg/dL Creatinine (0.66-1.25) mg/dL Est GFR (CKD-EPI)AfAm (>60 ml/min/1.73 sqM) Est GFR (CKD-EPI)NonAf (>60 ml/min/1.73 sqM) Glucose (74-99) mg/dL POC Glucose (mg/dL) 180 H (70-110) mg/dL POC Glu Quencher Operator ID Earlene Puentes Lactic Ac Sepsis Rflx Plasma Lactic Acid Nabil (0.7-2.0) mmol/L Calcium (8.4-10.2) mg/dL Magnesium (1.6-2.3) mg/dL Total Bilirubin (0.2-1.3) mg/dL AST (17-59) U/L ALT (4-49) U/L Alkaline Phosphatase (38-126) U/L Troponin I (0.000-0.034) ng/mL NT-Pro-B Natriuret Pep pg/mL Total Protein (6.3-8.2) g/dL Albumin (3.5-5.0) g/dL Urine Color Urine Appearance (Clear) Urine pH (5.0-8.0) Ur Specific [place] (1.001-1.035) Urine Protein (Negative) Urine Glucose (UA) (Negative) Urine Ketones (Negative) Urine Blood (Negative) Urine Nitrite (Negative) Urine Bilirubin (Negative) Urine Urobilinogen (<2.0) mg/dL Ur Leukocyte Esterase (Negative) Urine RBC (0-5) /hpf Urine WBC (0-5) /hpf Ur Squamous Epith Cells (0-4) /hpf Hyaline Casts (0-2) /lpf Granular Casts (0) /lpf Urine Mucus (None) /hpf Coronavirus (PCR) (Not Detectd) 02/20/23 02/20/23 02/20/23 Range/Units 12:37 12:37 12:40 WBC (3.8-10.6) k/uL RBC (4.30-5.90) m/uL Hgb (13.0-17.5) gm/dL Hct (39.0-53.0) % MCV (80.0-100.0) fL MCH (25.0-35.0) pg MCHC (31.0-37.0) g/dL RDW (11.5-15.5) % Plt Count (150-450) k/uL MPV Neutrophils % % Lymphocytes % % Monocytes % % Eosinophils % % Basophils % % Neutrophils # (1.3-7.7) k/uL Lymphocytes # (1.0-4.8) k/uL Monocytes # (0-1.0) k/uL Eosinophils # (0-0.7) k/uL Basophils # (0-0.2) k/uL Hypochromasia Macrocytosis PT (9.0-12.0) sec INR (<1.2) APTT (22.0-30.0) sec Sodium 143 (137-145) mmol/L Potassium 5.0 (3.5-5.1) mmol/L Chloride 96 L (98-107) mmol/L Carbon Dioxide 39 H (22-30) mmol/L Anion Gap 8 mmol/L BUN 49 H (9-20) mg/dL Creatinine 0.84 (0.66-1.25) mg/dL Est GFR (CKD-EPI)AfAm >90 (>60 ml/min/1.73 sqM) Est GFR (CKD-EPI)NonAf 81 (>60 ml/min/1.73 sqM) Glucose 190 H (74-99) mg/dL POC Glucose (mg/dL) (70-110) mg/dL POC Glu Quencher Operator ID Lactic Ac Sepsis Rflx Plasma Lactic Acid Nabil 2.1 H* (0.7-2.0) mmol/L Calcium 9.9 (8.4-10.2) mg/dL Magnesium 2.4 H (1.6-2.3) mg/dL Total Bilirubin 0.7 (0.2-1.3) mg/dL AST 28 (17-59) U/L ALT 16 (4-49) U/L Alkaline Phosphatase 90 (38-126) U/L Troponin I <0.012 (0.000-0.034) ng/mL NT-Pro-B Natriuret Pep pg/mL Total Protein 7.6 (6.3-8.2) g/dL Albumin 4.1 (3.5-5.0) g/dL Urine Color Urine Appearance (Clear) Urine pH (5.0-8.0) Ur Specific [place] (1.001-1.035) Urine Protein (Negative) Urine Glucose (UA) (Negative) Urine Ketones (Negative) Urine Blood (Negative) Urine Nitrite (Negative) Urine Bilirubin (Negative) Urine Urobilinogen (<2.0) mg/dL Ur Leukocyte Esterase (Negative) Urine RBC (0-5) /hpf Urine WBC (0-5) /hpf Ur Squamous Epith Cells (0-4) /hpf Hyaline Casts (0-2) /lpf Granular Casts (0) /lpf Urine Mucus (None) /hpf Coronavirus (PCR) (Not Detectd) 02/20/23 02/20/23 02/20/23 Range/Units 12:40 12:42 13:05 WBC (3.8-10.6) k/uL RBC (4.30-5.90) m/uL Hgb (13.0-17.5) gm/dL Hct (39.0-53.0) % MCV (80.0-100.0) fL MCH (25.0-35.0) pg MCHC (31.0-37.0) g/dL RDW (11.5-15.5) % Plt Count (150-450) k/uL MPV Neutrophils % % Lymphocytes % % Monocytes % % Eosinophils % % Basophils % % Neutrophils # (1.3-7.7) k/uL Lymphocytes # (1.0-4.8) k/uL Monocytes # (0-1.0) k/uL Eosinophils # (0-0.7) k/uL Basophils # (0-0.2) k/uL Hypochromasia Macrocytosis PT (9.0-12.0) sec INR (<1.2) APTT (22.0-30.0) sec Sodium (137-145) mmol/L Potassium (3.5-5.1) mmol/L Chloride (98-107) mmol/L Carbon Dioxide (22-30) mmol/L Anion Gap mmol/L BUN (9-20) mg/dL Creatinine (0.66-1.25) mg/dL Est GFR (CKD-EPI)AfAm (>60 ml/min/1.73 sqM) Est GFR (CKD-EPI)NonAf (>60 ml/min/1.73 sqM) Glucose (74-99) mg/dL POC Glucose (mg/dL) (70-110) mg/dL POC Glu Quencher Operator ID Lactic Ac Sepsis Rflx Y Plasma Lactic Acid Nabil (0.7-2.0) mmol/L Calcium (8.4-10.2) mg/dL Magnesium (1.6-2.3) mg/dL Total Bilirubin (0.2-1.3) mg/dL AST (17-59) U/L ALT (4-49) U/L Alkaline Phosphatase (38-126) U/L Troponin I (0.000-0.034) ng/mL NT-Pro-B Natriuret Pep 3400 pg/mL Total Protein (6.3-8.2) g/dL Albumin (3.5-5.0) g/dL Urine Color Yellow Urine Appearance Clear (Clear) Urine pH 5.5 (5.0-8.0) Ur Specific [place] 1.021 (1.001-1.035) Urine Protein 2+ H (Negative) Urine Glucose (UA) Negative (Negative) Urine Ketones Negative (Negative) Urine Blood Negative (Negative) Urine Nitrite Negative (Negative) Urine Bilirubin Negative (Negative) Urine Urobilinogen <2.0 (<2.0) mg/dL Ur Leukocyte Esterase Negative (Negative) Urine RBC 1 (0-5) /hpf Urine WBC 3 (0-5) /hpf Ur Squamous Epith Cells <1 (0-4) /hpf Hyaline Casts 16 H (0-2) /lpf Granular Casts 1 (0) /lpf Urine Mucus Rare H (None) /hpf Coronavirus (PCR) (Not Detectd) 02/20/23 Range/Units 13:39 WBC (3.8-10.6) k/uL RBC (4.30-5.90) m/uL Hgb (13.0-17.5) gm/dL Hct (39.0-53.0) % MCV (80.0-100.0) fL MCH (25.0-35.0) pg MCHC (31.0-37.0) g/dL RDW (11.5-15.5) % Plt Count (150-450) k/uL MPV Neutrophils % % Lymphocytes % % Monocytes % % Eosinophils % % Basophils % % Neutrophils # (1.3-7.7) k/uL Lymphocytes # (1.0-4.8) k/uL Monocytes # (0-1.0) k/uL Eosinophils # (0-0.7) k/uL Basophils # (0-0.2) k/uL Hypochromasia Macrocytosis PT (9.0-12.0) sec INR (<1.2) APTT (22.0-30.0) sec Sodium (137-145) mmol/L Potassium (3.5-5.1) mmol/L Chloride (98-107) mmol/L Carbon Dioxide (22-30) mmol/L Anion Gap mmol/L BUN (9-20) mg/dL Creatinine (0.66-1.25) mg/dL Est GFR (CKD-EPI)AfAm (>60 ml/min/1.73 sqM) Est GFR (CKD-EPI)NonAf (>60 ml/min/1.73 sqM) Glucose (74-99) mg/dL POC Glucose (mg/dL) (70-110) mg/dL POC Glu Quencher Operator ID Lactic Ac Sepsis Rflx Plasma Lactic Acid Nabil (0.7-2.0) mmol/L Calcium (8.4-10.2) mg/dL Magnesium (1.6-2.3) mg/dL Total Bilirubin (0.2-1.3) mg/dL AST (17-59) U/L ALT (4-49) U/L Alkaline Phosphatase (38-126) U/L Troponin I (0.000-0.034) ng/mL NT-Pro-B Natriuret Pep pg/mL Total Protein (6.3-8.2) g/dL Albumin (3.5-5.0) g/dL Urine Color Urine Appearance (Clear) Urine pH (5.0-8.0) Ur Specific [place] (1.001-1.035) Urine Protein (Negative) Urine Glucose (UA) (Negative) Urine Ketones (Negative) Urine Blood (Negative) Urine Nitrite (Negative) Urine Bilirubin (Negative) Urine Urobilinogen (<2.0) mg/dL Ur Leukocyte Esterase (Negative) Urine RBC (0-5) /hpf Urine WBC (0-5) /hpf Ur Squamous Epith Cells (0-4) /hpf Hyaline Casts (0-2) /lpf Granular Casts (0) /lpf Urine Mucus (None) /hpf Coronavirus (PCR) Not Detected (Not Detectd) Critical Care Time Critical Care Time: Yes Total Critical Care Time: 85 Disposition Clinical Impression: Atrial fibrillation, rapid, Respiratory failure, Pneumonia, Septic shock, Pneumothorax, Cardiorespiratory failure, Acute exacerbation of chronic obstructive pulmonary disease Disposition: ADMITTED IP TO THIS [facility] Condition: Critical Is patient prescribed a controlled substance at d/c from ED?: No Time of Disposition: 18:06
--- NOTE | 2023-02-20 12:54 | XR ---
EXAMINATION TYPE: XR chest 1V portable DATE OF EXAM: 02/20/2023 12:44 PM COMPARISON: Chest radiographs from 09/21/2016 TECHNIQUE: XR chest 1V portable Frontal view of the chest. CLINICAL INDICATION:Male, 82 years old with history of intubation; FINDINGS: Lungs/Pleura: Increased lucency of the right lung base with what is thought to be a visceral pleural line present. No evidence of focal consolidation. Blunting of the costophrenic angles is present. Lef t basilar airspace opacities. Masslike area within the right pulmonary hilum region. Pulmonary vascularity: Unremarkable. Heart/mediastinum: Cardiomediastinal silhouette is unremarkable. Atherosclerotic calcifications are seen in the aorta. Single-lead cardiac conduction device overlying the left hemithorax with lead proj ecting over the right ventricle. Musculoskeletal: No acute osseous pathology. Other findings: None Lines/Tubes: Endotracheal tube with distal tip 6.4 cm above the saeid. Nasogastric tube with side-port projecting over the distal esophagus. IMPRESSION: 1. There is increased lucency of the right lung base suspicious for pneumothorax on the right. 2. Nasogastric tube with distal tip and several projecting over the esophagus consider advancement o f at least 11 cm for optimal placement. 3. Bilateral pleural effusions. 4. Endotracheal tube in appropriate position. 5. Left basilar airspace opacities correlate for developing pneumonia. 6. There is a masslike area near the right perihilar region evaluation with CT may be of benefit to rule out mass versus atelectasis. Findings communicated to Dr. Nnamdi Badillo DO on 02/20/2023 12:[address] Contreras Villela.
[2023-02-20] MEDS ORDERED: SODIUM CHLORIDE 0.9% 500 ML 500 ML IV STA ×2 (12:56→13:32)
[2023-02-20] MEDS ORDERED: AZITHROMYCIN 500 MG in SODIUM CHLORIDE 0.9% 250 ML IVPB STA (12:56)
[2023-02-20] MEDS ORDERED: PNEUMONIA PROTOCOL UTILIZED 1 EACH MISC PO PRN (12:56)
[2023-02-20 13:02] LABS: ALT 16 U/L (4-49); AST 28 U/L (17-59); African American GFR (CKD) >90 (>60 ml/min/1.73 sqM); Albumin 4.1 g/dL (3.5-5.0); Alkaline Phosphatase 90 U/L (38-126); Anion Gap 8 mmol/L; Blood Urea Nitrogen 49 mg/dL (9-20); Calcium 9.9 mg/dL (8.4-10.2); Carbon Dioxide 39 mmol/L (22-30); Chloride 96 mmol/L (98-107); Glucose 190 mg/dL (74-99); Magnesium 2.4 mg/dL (1.6-2.3); Non-African American GFR(CKD) 81 (>60 ml/min/1.73 sqM); Sodium 143 mmol/L (137-145); Total Bilirubin 0.7 mg/dL (0.2-1.3); Total Protein 7.6 g/dL (6.3-8.2)
[2023-02-20 13:03] LABS: INR 1.1 (<1.2); Prothrombin Time 11.1 sec (9.0-12.0)
[2023-02-20] MEDS ORDERED: RX INFO: IV CONTRAST WAS GIVEN 1 EACH MISC MISCELLANE PRN (13:15)
--- NOTE | 2023-02-20 13:22 | XR ---
EXAMINATION TYPE: XR chest 1V portable DATE OF EXAM: 02/20/2023 1:16 PM COMPARISON: Chest radiographs from same day TECHNIQUE: XR chest 1V portable Frontal view of the chest. CLINICAL INDICATION:Male, 82 years old with history of OG placement; FINDINGS/impression: Overall exams not significantly changed from prior. There is similar position of the nasogastric tube which is in the distal esophagus consider advancement of at least 11 cm for optimal placement. The e ndotracheal tube is 5.4 cm from the saeid. There is increased lucency in the right lung base which r emains concerning for pneumothorax. There is blunting of the left costophrenic angle with left basila r airspace opacities. Right perihilar masslike opacity remains present.
[2023-02-20] MEDS ORDERED: SODIUM CHLORIDE 0.9% 1,000 ML IV STA (13:32)
[2023-02-20 13:34] LABS: Appearance,Urine Clear (Clear); Bilirubin,Urine Negative (Negative); Blood,Urine Negative (Negative); Color,Urine Yellow; Glucose,Urine (UA) Negative (Negative); Granular Casts,Urine 1 /lpf (0); Hyaline Casts,Urine 16 /lpf (0-2); Ketones,Urine Negative (Negative); Leukocyte Esterase,Urine Negative (Negative); Mucus,Urine Rare /hpf; Nitrite,Urine Negative (Negative); PH, Urine 5.5 (5.0-8.0); Protein,Urine 2+ (Negative); RBC,Urine 1 /hpf (0-5); Specific Gravity,Urine 1.021 (1.001-1.035); Squamous Epithelial Cell,Urine <1 /hpf (0-4); Urobilinogen,Urine <2.0 mg/dL (<2.0); WBC,Urine 3 /hpf (0-5)
--- NOTE | 2023-02-20 14:37 | CT ---
EXAMINATION TYPE: CT chest w con CT DLP: 330.1 mGycm, Automated exposure control for dose reduction was used. DATE OF EXAM: 02/20/2023 2:25 PM COMPARISON: Chest radiograph from same day. CLINICAL INDICATION:Male, 82 years old with history of dyspnea, ? mass ? pneumo; PHH, Dyspnea, ? mass . ? pneumo TECHNIQUE: Multiple axial images were obtained through the chest. Sagittal and coronal reformats were created for review. Contrast used:100 ml mL of Isovue 370 with IV Contrast (None if empty) Oral contrast used: (None if empty) FINDINGS: LUNGS/ PLEURA: Confirmation of findings on radiograph with moderate right pneumothorax. There is atel ectasis of the right lung base. There is moderate to severe paraseptal and centrilobular emphysema ch anges within the lungs. Small left pleural effusion left lower lung airspace opacities. There is some scarring extending within the pulmonary hilum throughout the right upper lobe that extends to the pl eura. Right middle lobe nodule laterally measuring 7 mm. AIRWAY: Opacified airways and extending onto the right lower lung with several areas in the left lowe r lung airways also present showing opacification. Endotracheal tube terminates above the saeid. HEART: Size within normal limits. Cardiac conduction leads terminates in the right ventricle. MEDIASTINUM: No gross evidence of adenopathy. Nasogastric tube terminates in the distal esophagus. VASCULATURE: No aortic aneurysm. Severe atherosclerosis of the arterial vasculature. No evidence for a filling defect to suggest embolus. MUSCULOSKELETAL: No acute osseous abnormalities SOFT TISSUES/LYMPH NODES: Unremarkable. LOWER NECK: No significant findings. UPPER ABDOMEN: Scattered colonic diverticula. IMPRESSION: 1. Moderate right pneumothorax with atelectasis of the right lower lung. No evidence of right perihi lar mass that is somewhat limited given atelectasis in the lower lung. No evidence for pulmonary embo gómez. 2. Nasogastric tube remains in the distal esophagus, advancement of 10 cm for optimal placement is r ecommended. 3. Left lower lung base infectious/inflammatory process could be secondary to suspected aspiration v ersus pneumonia. 4. Right middle lobe lateral pulmonary nodule measuring 7 mm attention follow-up imaging in 3-6 wu hs. 5. Moderate to severe emphysema changes., 6. Severe atherosclerosis of the arterial vasculature 7. Colonic diverticulosis.
--- NOTE | 2023-02-20 15:51 | XR ---
EXAMINATION TYPE: XR chest 1V portable DATE OF EXAM: 02/20/2023 3:41 PM COMPARISON: Same day TECHNIQUE: XR chest 1V portable Frontal view of the chest. CLINICAL INDICATION:Male, 82 years old with history of pneumothorax; FINDINGS: Lungs/Pleura: There is no evidence of pleural effusion, focal consolidation. There is a increased ri ght pneumothorax. Pulmonary vascularity: Unremarkable. Heart/mediastinum: Cardiomediastinal silhouette is unremarkable. Atherosclerotic calcifications are seen in the aorta. Single-lead cardiac conduction device overlying the left hemithorax with lead proj ecting over the right ventricle. Musculoskeletal: No acute osseous pathology. Other findings: None Lines/Tubes: Endotracheal tube 7.4 cm above the saeid. Right thoracotomy tube is present with evidence of increasing right pneumothorax. Nasogastric tube remains near the gastroesophageal junction advancement of 7.0 cm is recommended. IMPRESSION: 1. Interval placement of right thoracotomy tube with increased right pneumothorax. 2. Nasogastric tube remains near the gastroesophageal junction advancement of 7.0 cm is recommended. 3. Endotracheal tube 7.4 cm above the saeid.
--- NOTE | 2023-02-20 16:12 | XR ---
EXAMINATION TYPE: XR chest 1V portable DATE OF EXAM: 02/20/2023 4:00 PM COMPARISON: Same day radiographs TECHNIQUE: XR chest 1V portable lateral view of the chest. CLINICAL INDICATION:Male, 82 years old with history of Pneumothorax; FINDINGS: Right thoracotomy tube with tip projecting over the hilum. Pneumothorax as well appreciated on latera l view. The nasogastric tube remains in the distal esophagus. IMPRESSION: Thoracotomy tube with tip projecting over the pulmonary hilum.
--- NOTE | 2023-02-20 16:36 | XR ---
EXAMINATION TYPE: XR chest 1V portable DATE OF EXAM: 02/20/2023 4:31 PM COMPARISON: Chest radiographs from same day TECHNIQUE: XR chest 1V portable Frontal view of the chest. CLINICAL INDICATION:Male, 82 years old with history of pneumothorax; FINDINGS/IMPRESSION: 1. Nasogastric tube remains in the distal esophagus, advancement of 9 cm recommended for proper plac ement. 2. Endotracheal tube 5.8 cm above the saeid. 3. Thoracotomy tube with persistent moderate to large pneumothorax
--- NOTE | 2023-02-20 17:57 | XR ---
EXAMINATION TYPE: XR chest 1V portable DATE OF EXAM: 02/20/2023 5:49 PM COMPARISON: Chest radiographs from Same day TECHNIQUE: XR chest 1V portable Frontal view of the chest. CLINICAL INDICATION:Male, 82 years old with history of chest tube; FINDINGS/IMPRESSION: 1. Nasogastric tube side-port remains in the distal esophagus. Advancement of 9 cm recurrent for opt imal placement. 2. Interval placement of second right thoracotomy tube with with decreased right pneumothorax. Tip o f the second toe, 2 projects over the right pulmonary hilum. 3. Endotracheal tube 4.8 cm above the saeid.
[2023-02-20] MEDS ORDERED: ACETAMINOPHEN TAB 325 MG TAB PO PRN (18:06)
[2023-02-20] MEDS ORDERED: NALOXONE 0.4 MG/ML 1 ML VIAL IV PRN (18:06)
[2023-02-20] MEDS: IPRATROPIUM-ALBUTEROL 3 ML NEB INHALATION SCH ×2 (19:10→19:29)
--- NOTE | 2023-02-20 20:52 | ED ---
Medical Decision Making - Lab Data Result diagrams: 02/20/23 12:37 02/20/23 12:40 Lab Results 02/20/23 02/20/23 02/20/23 Range/Units 12:15 12:37 12:37 WBC 11.7 H (3.8-10.6) k/uL RBC 2.66 L (4.30-5.90) m/uL Hgb 8.5 L (13.0-17.5) gm/dL Hct 28.3 L (39.0-53.0) % MCV 106.3 H (80.0-100.0) fL MCH 32.1 (25.0-35.0) pg MCHC 30.2 L (31.0-37.0) g/dL RDW 13.7 (11.5-15.5) % Plt Count 198 (150-450) k/uL MPV 8.7 Neutrophils % 85 % Lymphocytes % 7 % Monocytes % 7 % Eosinophils % 0 % Basophils % 0 % Neutrophils # 9.9 H (1.3-7.7) k/uL Lymphocytes # 0.8 L (1.0-4.8) k/uL Monocytes # 0.8 (0-1.0) k/uL Eosinophils # 0.0 (0-0.7) k/uL Basophils # 0.0 (0-0.2) k/uL Hypochromasia Marked Macrocytosis Moderate PT 11.1 (9.0-12.0) sec INR 1.1 (<1.2) APTT 25.0 (22.0-30.0) sec Sodium (137-145) mmol/L Potassium (3.5-5.1) mmol/L Chloride (98-107) mmol/L Carbon Dioxide (22-30) mmol/L Anion Gap mmol/L BUN (9-20) mg/dL Creatinine (0.66-1.25) mg/dL Est GFR (CKD-EPI)AfAm (>60 ml/min/1.73 sqM) Est GFR (CKD-EPI)NonAf (>60 ml/min/1.73 sqM) Glucose (74-99) mg/dL POC Glucose (mg/dL) 180 H (70-110) mg/dL POC Glu Glue Maker ID Earlene Puentes Lactic Ac Sepsis Rflx Plasma Lactic Acid Nabil (0.7-2.0) mmol/L Calcium (8.4-10.2) mg/dL Magnesium (1.6-2.3) mg/dL Total Bilirubin (0.2-1.3) mg/dL AST (17-59) U/L ALT (4-49) U/L Alkaline Phosphatase (38-126) U/L Troponin I (0.000-0.034) ng/mL NT-Pro-B Natriuret Pep pg/mL Total Protein (6.3-8.2) g/dL Albumin (3.5-5.0) g/dL Urine Color Urine Appearance (Clear) Urine pH (5.0-8.0) Ur Specific [place] (1.001-1.035) Urine Protein (Negative) Urine Glucose (UA) (Negative) Urine Ketones (Negative) Urine Blood (Negative) Urine Nitrite (Negative) Urine Bilirubin (Negative) Urine Urobilinogen (<2.0) mg/dL Ur Leukocyte Esterase (Negative) Urine RBC (0-5) /hpf Urine WBC (0-5) /hpf Ur Squamous Epith Cells (0-4) /hpf Hyaline Casts (0-2) /lpf Granular Casts (0) /lpf Urine Mucus (None) /hpf Coronavirus (PCR) (Not Detectd) 02/20/23 02/20/23 02/20/23 Range/Units 12:37 12:37 12:40 WBC (3.8-10.6) k/uL RBC (4.30-5.90) m/uL Hgb (13.0-17.5) gm/dL Hct (39.0-53.0) % MCV (80.0-100.0) fL MCH (25.0-35.0) pg MCHC (31.0-37.0) g/dL RDW (11.5-15.5) % Plt Count (150-450) k/uL MPV Neutrophils % % Lymphocytes % % Monocytes % % Eosinophils % % Basophils % % Neutrophils # (1.3-7.7) k/uL Lymphocytes # (1.0-4.8) k/uL Monocytes # (0-1.0) k/uL Eosinophils # (0-0.7) k/uL Basophils # (0-0.2) k/uL Hypochromasia Macrocytosis PT (9.0-12.0) sec INR (<1.2) APTT (22.0-30.0) sec Sodium 143 (137-145) mmol/L Potassium 5.0 (3.5-5.1) mmol/L Chloride 96 L (98-107) mmol/L Carbon Dioxide 39 H (22-30) mmol/L Anion Gap 8 mmol/L BUN 49 H (9-20) mg/dL Creatinine 0.84 (0.66-1.25) mg/dL Est GFR (CKD-EPI)AfAm >90 (>60 ml/min/1.73 sqM) Est GFR (CKD-EPI)NonAf 81 (>60 ml/min/1.73 sqM) Glucose 190 H (74-99) mg/dL POC Glucose (mg/dL) (70-110) mg/dL POC Glu Glue Maker ID Lactic Ac Sepsis Rflx Plasma Lactic Acid Nabil 2.1 H* (0.7-2.0) mmol/L Calcium 9.9 (8.4-10.2) mg/dL Magnesium 2.4 H (1.6-2.3) mg/dL Total Bilirubin 0.7 (0.2-1.3) mg/dL AST 28 (17-59) U/L ALT 16 (4-49) U/L Alkaline Phosphatase 90 (38-126) U/L Troponin I <0.012 (0.000-0.034) ng/mL NT-Pro-B Natriuret Pep pg/mL Total Protein 7.6 (6.3-8.2) g/dL Albumin 4.1 (3.5-5.0) g/dL Urine Color Urine Appearance (Clear) Urine pH (5.0-8.0) Ur Specific [place] (1.001-1.035) Urine Protein (Negative) Urine Glucose (UA) (Negative) Urine Ketones (Negative) Urine Blood (Negative) Urine Nitrite (Negative) Urine Bilirubin (Negative) Urine Urobilinogen (<2.0) mg/dL Ur Leukocyte Esterase (Negative) Urine RBC (0-5) /hpf Urine WBC (0-5) /hpf Ur Squamous Epith Cells (0-4) /hpf Hyaline Casts (0-2) /lpf Granular Casts (0) /lpf Urine Mucus (None) /hpf Coronavirus (PCR) (Not Detectd) 02/20/23 02/20/23 02/20/23 Range/Units 12:40 12:42 13:05 WBC (3.8-10.6) k/uL RBC (4.30-5.90) m/uL Hgb (13.0-17.5) gm/dL Hct (39.0-53.0) % MCV (80.0-100.0) fL MCH (25.0-35.0) pg MCHC (31.0-37.0) g/dL RDW (11.5-15.5) % Plt Count (150-450) k/uL MPV Neutrophils % % Lymphocytes % % Monocytes % % Eosinophils % % Basophils % % Neutrophils # (1.3-7.7) k/uL Lymphocytes # (1.0-4.8) k/uL Monocytes # (0-1.0) k/uL Eosinophils # (0-0.7) k/uL Basophils # (0-0.2) k/uL Hypochromasia Macrocytosis PT (9.0-12.0) sec INR (<1.2) APTT (22.0-30.0) sec Sodium (137-145) mmol/L Potassium (3.5-5.1) mmol/L Chloride (98-107) mmol/L Carbon Dioxide (22-30) mmol/L Anion Gap mmol/L BUN (9-20) mg/dL Creatinine (0.66-1.25) mg/dL Est GFR (CKD-EPI)AfAm (>60 ml/min/1.73 sqM) Est GFR (CKD-EPI)NonAf (>60 ml/min/1.73 sqM) Glucose (74-99) mg/dL POC Glucose (mg/dL) (70-110) mg/dL POC Glu Glue Maker ID Lactic Ac Sepsis Rflx Y Plasma Lactic Acid Nabil (0.7-2.0) mmol/L Calcium (8.4-10.2) mg/dL Magnesium (1.6-2.3) mg/dL Total Bilirubin (0.2-1.3) mg/dL AST (17-59) U/L ALT (4-49) U/L Alkaline Phosphatase (38-126) U/L Troponin I (0.000-0.034) ng/mL NT-Pro-B Natriuret Pep 3400 pg/mL Total Protein (6.3-8.2) g/dL Albumin (3.5-5.0) g/dL Urine Color Yellow Urine Appearance Clear (Clear) Urine pH 5.5 (5.0-8.0) Ur Specific [place] 1.021 (1.001-1.035) Urine Protein 2+ H (Negative) Urine Glucose (UA) Negative (Negative) Urine Ketones Negative (Negative) Urine Blood Negative (Negative) Urine Nitrite Negative (Negative) Urine Bilirubin Negative (Negative) Urine Urobilinogen <2.0 (<2.0) mg/dL Ur Leukocyte Esterase Negative (Negative) Urine RBC 1 (0-5) /hpf Urine WBC 3 (0-5) /hpf Ur Squamous Epith Cells <1 (0-4) /hpf Hyaline Casts 16 H (0-2) /lpf Granular Casts 1 (0) /lpf Urine Mucus Rare H (None) /hpf Coronavirus (PCR) (Not Detectd) 02/20/23 Range/Units 13:39 WBC (3.8-10.6) k/uL RBC (4.30-5.90) m/uL Hgb (13.0-17.5) gm/dL Hct (39.0-53.0) % MCV (80.0-100.0) fL MCH (25.0-35.0) pg MCHC (31.0-37.0) g/dL RDW (11.5-15.5) % Plt Count (150-450) k/uL MPV Neutrophils % % Lymphocytes % % Monocytes % % Eosinophils % % Basophils % % Neutrophils # (1.3-7.7) k/uL Lymphocytes # (1.0-4.8) k/uL Monocytes # (0-1.0) k/uL Eosinophils # (0-0.7) k/uL Basophils # (0-0.2) k/uL Hypochromasia Macrocytosis PT (9.0-12.0) sec INR (<1.2) APTT (22.0-30.0) sec Sodium (137-145) mmol/L Potassium (3.5-5.1) mmol/L Chloride (98-107) mmol/L Carbon Dioxide (22-30) mmol/L Anion Gap mmol/L BUN (9-20) mg/dL Creatinine (0.66-1.25) mg/dL Est GFR (CKD-EPI)AfAm (>60 ml/min/1.73 sqM) Est GFR (CKD-EPI)NonAf (>60 ml/min/1.73 sqM) Glucose (74-99) mg/dL POC Glucose (mg/dL) (70-110) mg/dL POC Glu Glue Maker ID Lactic Ac Sepsis Rflx Plasma Lactic Acid Nabil (0.7-2.0) mmol/L Calcium (8.4-10.2) mg/dL Magnesium (1.6-2.3) mg/dL Total Bilirubin (0.2-1.3) mg/dL AST (17-59) U/L ALT (4-49) U/L Alkaline Phosphatase (38-126) U/L Troponin I (0.000-0.034) ng/mL NT-Pro-B Natriuret Pep pg/mL Total Protein (6.3-8.2) g/dL Albumin (3.5-5.0) g/dL Urine Color Urine Appearance (Clear) Urine pH (5.0-8.0) Ur Specific [place] (1.001-1.035) Urine Protein (Negative) Urine Glucose (UA) (Negative) Urine Ketones (Negative) Urine Blood (Negative) Urine Nitrite (Negative) Urine Bilirubin (Negative) Urine Urobilinogen (<2.0) mg/dL Ur Leukocyte Esterase (Negative) Urine RBC (0-5) /hpf Urine WBC (0-5) /hpf Ur Squamous Epith Cells (0-4) /hpf Hyaline Casts (0-2) /lpf Granular Casts (0) /lpf Urine Mucus (None) /hpf Coronavirus (PCR) Not Detected (Not Detectd) Disposition Clinical Impression: Atrial fibrillation, rapid, Respiratory failure, Pneumonia, Septic shock, Pneumothorax, Cardiorespiratory failure, Acute exacerbation of chronic obstructive pulmonary disease Disposition: ADMITTED IP TO THIS HOSP Condition: Critical Is patient prescribed a controlled substance at d/c from ED?: No Procedures - Central Line Placement Right Femoral Consent Obtained: emergent situation Prep: mask, gown, gloves Central Line Prep: Chlorhexidine scrub Ultrasound Used for Placement: No Central Line Lumen Inserted: triple Central Line Position: good blood return, all ports aspirated, flushed, capped, sutured in place with 3-0 nylon Dressing Applied: Tegaderm Patient Tolerated Procedure: well Complications: none - Intubation Sedative: Versed Mg Given: 2 Paralytic: Succinylcholine Mg Given: 100 Laryngoscope: Lang Size: 3 ET Tube Size: 7.5 Tube Placement Confirmation: visualized tube passing through cords, equal breath sounds bilaterally, no breath sounds over epigastrium, confirmation by capnometry Patient Tolerated Procedure: well Intubation Complications: none - Sepsis Sepsis Focused Exam #1 Time Sepsis Criteria Met: 13:35
[2023-02-20] MEDS ORDERED: MIDAZOLAM 1 MG/ML 5 ML VIAL IV STA (20:55)
[2023-02-21] MEDS: IPRATROPIUM-ALBUTEROL 3 ML NEB INHALATION SCH ×6 (00:01→21:20)
[2023-02-21 00:06] LABS: ABG Base Excess 9.3 mmol/L; ABG HCO3 34 mmol/L (21-25); ABG PCO2 53 mmHg (35-45); ABG PH 7.42 (7.35-7.45); ABG PO2 >400 mmHg (83-108); ABG TCO2 36 mmol/L (19-24); Allen Test Performed? Yes
--- NOTE | 2023-02-21 00:25 | P.HPIM ---
History of Present Illness H&P Date: 02/20/23 Chief Complaint: unresponsive 82 year old male with afib s/p AICD, CHF patient intubated , no family at bedside. ED chart review performed patient coming from home, he was found to be in severe respiratory distress, so EMS notified, who found him in respiratory distress, then suffered from PEA arrest for 1 min, CPR delivered by EMS. upon arrival to the hospital he was u nresponsive. family reported some advance COPD that he has been following with Davin mann, but missed last appointment no other history available at this time then while in the ED, he was found to be hypotensive, imaging showed moderate to large right sided pneumothorax, and left lower lung base inflammatory process suspicious for pneumonia . right middle lobe lateral pulmonary nodule measuring 7 mm, moderate severe emphysema chest tube was inserted in the ED, initially had a thoravent in his mid second intercostal space, but Xray showed persistent of large right sided pneumothorax , so another chest tube was inserted then. review of systems unable to obtain PMHx afib CHF s/p AICD, COPD , CAD, hypertension , prostate disorder on exam Constitutional: intubated sedated,disheveled , cachectic Eyes: Anicteric sclerae, moist conjunctiva, Pupils equal round reactive to light ENMT: NC/AT Neck: Supple, no masses, or JVD No carotid bruits No thyromegaly Lungs: audible breath sounds bilaterally , [address] Normal respiratory effort, no accessory muscle use Cardiovascular: Heart regular in rate and rhythm, No murmurs, gallops, or rubs No peripheral edema Abdominal: Soft, scaphoid abd Nontender, no guarding, rebound or rigidity Abdomen moving with respiration Normoactive bowel sounds No hepatomegaly, No splenomegaly No palpable mass No abdominal wall hernia noted Extremities: No digital cyanosis positive clubbing Pedal pulses intact right foot , absent left foot, capillary refill immediate bilaterally Radial pulses intact and symmetrical No calf tenderness Psychiatric: intubated and sedated , responds to tactile stimulation by grimacing Neuro unable to assess Lymphatics: no palpable cervical or supraclavicular lymph nodes Past Medical History Past Medical History: Atrial Fibrillation, Asthma, COPD, Hypertension, Myocardial Infarction ([place]), Osteoarthritis (OA), Pneumonia, Prostate Disorder Additional Past Medical History / Comment(s): See Dr Luo H & P, rash on top of head, O2 -3 LITERS N/C,PREVIOUSLY NOTED THAT PT HAD HX OF [place] PT WAS'NT AWARE OF THIS. BACK PAIN, SCIATIC NERVE PAIN, ASTHMA/BRNCHITIS, DDD,SCOLIOSIS Last Myocardial Infarction Date:: 2012 History of Any Multi-Drug Resistant Organisms: None Reported Past Surgical History: AICD, Heart Catheterization, Tonsillectomy Additional Past Surgical History / Comment(s): cardioversion, cataracts removed, left hand pink finger surgery Past Anesthesia/Blood Transfusion Reactions: Motion Sickness Additional Past Anesthesia/Blood Transfusion Reaction / Comment(s): PT HAS NEVER HAD A BLOOD TRANSFUSION. Type of Cardiac Device: AICD Device Placement Date:: 2014 Past Psychological History: No Psychological Hx Reported Smoking Status: Unknown if ever smoked Past Alcohol Use History: None Reported Past Drug Use History: None Reported - Past Family History Father Family Medical History: Cancer, Prostate Disorder Additional Family Medical History / Comment(s): FATHER HAD PROSTATE CANCER Mother Family Medical History: No Reported History Additional Family Medical History / Comment(s): MOTHER IS ALIVE AT 94 AND IN EXCELLENT HEALTH. Medications and Allergies Home Medications Medication Instructions Recorded Confirmed Type HYDROcodone/APAP 10-325MG [[place] 1 tab PO Q6H PRN 08/12/14 02/20/23 History 10-325] Albuterol Sulfate [Proventil Hfa] 2 puff INHALATION RT-QID PRN 09/21/16 02/20/23 History Apixaban [Eliquis] 5 mg PO BID 01/21/17 02/20/23 History Atorvastatin [Lipitor] 10 mg PO HS 01/21/17 02/20/23 History Ferrous Sulfate [Feosol] 325 mg PO BID 01/21/17 02/20/23 History Tamsulosin HCl [Flomax] 0.4 mg PO DAILY 01/21/17 02/20/23 History Albuterol Nebulized [Ventolin 2.5 mg INHALATION RT-Q4H PRN 02/20/23 02/20/23 History Nebulized] Ascorbic Acid [Vitamin C] 1,000 mg PO DAILY 02/20/23 02/20/23 History Budesonide [Pulmicort] 0.5 mg INHALATION RT-BID 02/20/23 02/20/23 History Cholecalciferol [Vitamin D3 (125 250 mcg PO DAILY 02/20/23 02/20/23 History Mcg = 5000 Iu)] Cyanocobalamin (Vitamin B-12) 1,000 mcg PO DAILY 02/20/23 02/20/23 History [Vitamin B-12] Famotidine 40 mg PO DAILY 02/20/23 02/20/23 History Fluticasone Propion/Salmeterol 1 puff INHALATION RT-BID 02/20/23 02/20/23 History [[place]ixela 500-50 Inhub] Furosemide [Lasix] 40 mg PO DAILY 02/20/23 02/20/23 History Metoprolol Succinate (ER) [Toprol 12.5 mg PO BID 02/20/23 02/20/23 History XL] Montelukast [Singulair] 10 mg PO DAILY 02/20/23 02/20/23 History Multivit-Min/FA/Lycopen/Lutein 1 tab PO DAILY 02/20/23 02/20/23 History [Centrum Silver Men Tablet] Potassium Gluconate 99 mg PO DAILY 02/20/23 02/20/23 History Pramipexole [Mirapex] 0.25 mg PO HS 02/20/23 02/20/23 History Tiotropium 2.5 Mcg/Puff [Spiriva 2 puff INHALATION RT-DAILY 02/20/23 02/20/23 History Respimat 2.5 Mcg] Zinc Gluconate [Zinc] 50 mg PO DAILY 02/20/23 02/20/23 History Allergies Allergy/AdvReac Type Severity Reaction Status Date / Time lisinopril AdvReac Bleeding Verified 02/20/23 15:03 warfarin AdvReac Bleeding Verified 02/20/23 15:03 Physical Exam Vitals: Vital Signs Temp Pulse Resp BP Pulse Ox FiO2 02/20/23 23:26 100 02/20/23 22:20 68 20 155/78 100 02/20/23 22:12 64 20 148/69 100 02/20/23 20:29 97.8 F 75 20 171/85 100 02/20/23 19:40 80 02/20/23 19:32 100 02/20/23 19:29 80 02/20/23 18:41 97.0 F L 78 20 163/67 100 02/20/23 18:29 73 20 138/86 100 02/20/23 16:20 100 02/20/23 16:00 98.0 F 70 20 106/63 100 02/20/23 15:54 78 20 99/64 98 02/20/23 14:34 74 94/51 02/20/23 14:12 80 67/30 02/20/23 14:05 90 110/87 02/20/23 13:55 90 20 111/68 100 02/20/23 13:45 84 20 93/58 100 02/20/23 13:40 90 20 83/51 100 02/20/23 13:23 100 02/20/23 13:07 90 20 95/68 100 02/20/23 13:05 92 20 74/55 100 02/20/23 12:58 101 H 20 79/67 99 02/20/23 12:52 100 20 94/66 100 02/20/23 12:50 100 02/20/23 12:45 101 H 20 90/64 100 02/20/23 12:40 122 H 20 99/69 02/20/23 12:35 117 H 20 184/98 99 02/20/23 12:30 107 H 20 57/30 99 02/20/23 12:25 116 H 20 85/63 99 02/20/23 12:23 8 L 02/20/23 12:20 166 H 20 78/56 98 02/20/23 12:11 144 H 10 L 103/83 84 L 100 Intake and Output 02/20/23 02/20/23 02/21/23 14:59 22:59 06:59 Intake Total 6.860 40.713 Output Total 30 Balance -23.140 40.713 Intake: Intake, IV Titration 6.860 40.713 Amount Norepinephrine 32 mg In 0.949 25.815 Sodium Chloride 0.9% 218 ml @ 0.03 MCG/KG/MIN 0. 759 mls/hr IV .Q24H ONE Rx#:[id number] propofoL 1,000 mg In 5.911 14.898 Empty Bag 1 bag @ 15 MCG/ KG/MIN 4.858 mls/hr IV . [id number] [facility] Rx#:[id number] Output: Urine 30 Uretheral ([place]) 30 Other: Weight 53.977 kg Results CBC & Chem 7: 02/20/23 12:37 02/20/23 12:40 Labs: Abnormal Lab Results - Last 24 Hours (Table) 02/20/23 02/20/23 02/20/23 Range/Units 12:15 12:37 12:37 WBC 11.7 H (3.8-10.6) k/uL RBC 2.66 L (4.30-5.90) m/uL Hgb 8.5 L (13.0-17.5) gm/dL Hct 28.3 L (39.0-53.0) % MCV 106.3 H (80.0-100.0) fL MCHC 30.2 L (31.0-37.0) g/dL Neutrophils # 9.9 H (1.3-7.7) k/uL Lymphocytes # 0.8 L (1.0-4.8) k/uL Chloride (98-107) mmol/L Carbon Dioxide (22-30) mmol/L BUN (9-20) mg/dL Glucose (74-99) mg/dL POC Glucose (mg/dL) 180 H (70-110) mg/dL Plasma Lactic Acid Nabil 2.1 H* (0.7-2.0) mmol/L Magnesium (1.6-2.3) mg/dL Urine Protein (Negative) Hyaline Casts (0-2) /lpf Urine Mucus (None) /hpf 02/20/23 02/20/23 02/20/23 Range/Units 12:40 12:42 18:25 WBC (3.8-10.6) k/uL RBC (4.30-5.90) m/uL Hgb (13.0-17.5) gm/dL Hct (39.0-53.0) % MCV (80.0-100.0) fL MCHC (31.0-37.0) g/dL Neutrophils # (1.3-7.7) k/uL Lymphocytes # (1.0-4.8) k/uL Chloride 96 L (98-107) mmol/L Carbon Dioxide 39 H (22-30) mmol/L BUN 49 H (9-20) mg/dL Glucose 190 H (74-99) mg/dL POC Glucose (mg/dL) (70-110) mg/dL Plasma Lactic Acid Nabil 2.3 H* (0.7-2.0) mmol/L Magnesium 2.4 H (1.6-2.3) mg/dL Urine Protein 2+ H (Negative) Hyaline Casts 16 H (0-2) /lpf Urine Mucus Rare H (None) /hpf 02/20/23 Range/Units 21:06 WBC (3.8-10.6) k/uL RBC (4.30-5.90) m/uL Hgb (13.0-17.5) gm/dL Hct (39.0-53.0) % MCV (80.0-100.0) fL MCHC (31.0-37.0) g/dL Neutrophils # (1.3-7.7) k/uL Lymphocytes # (1.0-4.8) k/uL Chloride (98-107) mmol/L Carbon Dioxide (22-30) mmol/L BUN (9-20) mg/dL Glucose (74-99) mg/dL POC Glucose (mg/dL) (70-110) mg/dL Plasma Lactic Acid Nabil 3.7 H* (0.7-2.0) mmol/L Magnesium (1.6-2.3) mg/dL Urine Protein (Negative) Hyaline Casts (0-2) /lpf Urine Mucus (None) /hpf Assessment and Plan Assessment: 82 year old male brought in as he was found in severe respiratory distress , EMS performed CPR for 1 min for PEA arrest, with successful ROSC, I discussed the case with ED doc, I accepted the admission for cardiopulmonary support in the ICU, and possible underlying septic shock on antibiotics and pressors. with ant icipated length of stay > 2 midnights PEA arrest s/p ROSC septic shock , possible pneumonia right moderate to large pneumothorax acute copd exacerbation follow up cultures started on azithromycin and rocephine 2 gm daily IVPB duonebs PRN and around the clock vent support imaging confirmed right sided pneumothorax and possible left lower lung infectious process systemic steroids IVF hydration with normal saline s/p 2 chest tubes to the right side, NG tube insertion , right femoral central line, and intubation blood work showed leukocytosis WBC 11.7 , lactic acidosis 2.3 , anemia , Hgb 8.5 , unknown if there is a source of bleeding , no identified source at this time renal function unremarkable cr 0.84 , Na 143, K 5 BUN elevated could be secondary to dehydration , or reflect underlying bleeding BUN 49 follow up blood work ICU care chronic conditions afib s/p AICD, hold eliquis due to possiblity of bleeding with low Hgb 8.5, hold metoprolol secondary to hypotension on pressors for now CHF unknown LVEF hypertension , now hypotensive full code DVT PPX on eliquis for afib
[2023-02-21] MEDS: PIPERACILLIN-TAZOBACTAM 3.375 GM in SODIUM CHLORIDE 0.9% 100 ML IVPB SCH ×3 (02:07→17:56)
--- NOTE | 2023-02-21 02:18 | P.CNPUL ---
History of Present Illness Consult date: 02/21/23 Requesting physician: Nnamdi Badillo Reason for consult: other (ICU management) Chief complaint: Cardiac arrest History of present illness: I am seeing this patient in new consultation today 02/21/2023 in the emergency room post PEA cardiac arrest. Patient is a 82-year-old white male with past [facility] history significant for atrial fibrillation, congestive heart failure status post AICD, hypertension, COPD, BPH. Patient has followed-up in the past with Dr. Farah, but has not had any recent office visits. Patient is known to have severe emphysema with an FEV1 44% of predicted and reduced DLCO on PFT from 2017. Apparently, the patient was in some respiratory distress yesterday morning, and EMS was called. In route, he did reportedly have a PEA cardiac arrest with approximately 1 minute downtime. The patient was unresponsive and intubated in the emergency room. Initial chest x-ray showed endotracheal tube 6.4 cm above the saeid, an NG tube within the distal esophagus, bilateral pleu ral effusions, left basilar airspace opacity concerning for developing pneumonia, and a masslike area near the right perihilar region. The patient was hypotensive and tachycardic. A follow-up chest CT did show development of a moderate size right pneumothorax. A right ThoraVent was placed in the emergency room, without initial resolution of pneumothorax. A right thoracotomy tube was then placed with reduction in the patient's right-sided pneumothorax to less than 20%. The endotracheal tracheal tube was also adjusted, and is currently 4.8 cm above the saeid. Patient is currently intubated, and synchronous with the mechanical ventilator. No ABG was initially obtained, and I did place a right radial arterial line. Current ventilator settings are assist control, respiratory rate 20, tidal volume 350, FiO2 100%, and PEEP of 5. ABG on these settings show a pO2 greater than 400, pCO2 of 53, pH 7.42. The FiO2 will be titrated accordingly. Chest tube is to suction, and there is an intermittent air leak. Peak pressure is 28 and plateau pressure 13. Blood pressure is now hypertensive, and norepinephrine is infusing at 0.05 mcg/kg/m through a femoral central venous catheter. Norepinephrine will likely be titrated off. Heart rhythm was atrial fibrillation with rapid ventricular rate, currently atrial fibrillation with a heart rate of 70 bpm. Propofol is infusing at 40 mcg/kg/m. The patient is sedated and synchronous with the ventilator. CBC on arrival shows evidence count of 11.7, hemoglobin 8.5, hematocrit 28.3, platelets 198. BMP on arrival shows sodium 143, potassium 5, chloride 96, serum bicarbonate 39, BUN 49, creatinine 0.84, glucose 180. No IV maintenance fluids infusing. No Archuleta catheter for accurate intake and output. Lactic acid was elevated at 3.7, and is trending down currently 2.7. Troponins less than 0.012. NT proBNP was elevated at 3400. Urinalysis was unremarkable for UTI. Negative for COVID-19. Patient has received doses of azithromycin and Rocephin. He is afebrile. Patient will be admitted to the intensive care unit once bed available. Review of Systems ROS unobtainable: due to endotracheal tube Past Medical History Past Medical History: Atrial Fibrillation, Asthma, COPD, Hypertension, Myocardial Infarction ([place]), Osteoarthritis ([place]), Pneumonia, Prostate Disorder Additional Past Medical History / Comment(s): See Dr Luo H & P, rash on top of head, O2 -3 LITERS N/C,PREVIOUSLY NOTED THAT PT HAD HX OF [place] PT WAS'NT AWARE OF THIS. BACK PAIN, SCIATIC NERVE PAIN, ASTHMA/BRNCHITIS, DDD,SCOLIOSIS Last Myocardial Infarction Date:: 2012 History of Any Multi-Drug Resistant Organisms: None Reported Past Surgical History: AICD, Heart Catheterization, Tonsillectomy Additional Past Surgical History / Comment(s): cardioversion, cataracts removed, left hand pink finger surgery Past Anesthesia/Blood Transfusion Reactions: Motion Sickness Additional Past Anesthesia/Blood Transfusion Reaction / Comment(s): PT HAS NEVER HAD A BLOOD TRANSFUSION. Type of Cardiac Device: AICD Device Placement Date:: 2014 Past Psychological History: No Psychological Hx Reported Smoking Status: Unknown if ever smoked Past Alcohol Use History: None Reported Past Drug Use History: None Reported - Past Family History Father Family Medical History: Cancer, Prostate Disorder Additional Family Medical History / Comment(s): FATHER HAD PROSTATE CANCER Mother Family Medical History: No Reported History Additional Family Medical History / Comment(s): MOTHER IS ALIVE AT 94 AND IN EXCELLENT HEALTH. Medications and Allergies Home Medications Medication Instructions Recorded Confirmed Type HYDROcodone/APAP 10-325MG [Mcloud 1 tab PO Q6H PRN 08/12/14 02/20/23 History 10-325] Albuterol Sulfate [Proventil Hfa] 2 puff INHALATION RT-QID PRN 09/21/16 02/20/23 History Apixaban [Eliquis] 5 mg PO BID 01/21/17 02/20/23 History Atorvastatin [Lipitor] 10 mg PO HS 01/21/17 02/20/23 History Ferrous Sulfate [Feosol] 325 mg PO BID 01/21/17 02/20/23 History Tamsulosin HCl [Flomax] 0.4 mg PO DAILY 01/21/17 02/20/23 History Albuterol Nebulized [Ventolin 2.5 mg INHALATION RT-Q4H PRN 02/20/23 02/20/23 History Nebulized] Ascorbic Acid [Vitamin C] 1,000 mg PO DAILY 02/20/23 02/20/23 History Budesonide [Pulmicort] 0.5 mg INHALATION RT-BID 02/20/23 02/20/23 History Cholecalciferol [Vitamin D3 (125 250 mcg PO DAILY 02/20/23 02/20/23 History Mcg = 5000 Iu)] Cyanocobalamin (Vitamin B-12) 1,000 mcg PO DAILY 02/20/23 02/20/23 History [Vitamin B-12] Famotidine 40 mg PO DAILY 02/20/23 02/20/23 History Fluticasone Propion/Salmeterol 1 puff INHALATION RT-BID 02/20/23 02/20/23 History [Wixela 500-50 Inhub] Furosemide [Lasix] 40 mg PO DAILY 02/20/23 02/20/23 History Metoprolol Succinate (ER) [Toprol 12.5 mg PO BID 02/20/23 02/20/23 History XL] Montelukast [Singulair] 10 mg PO DAILY 02/20/23 02/20/23 History Multivit-Min/FA/Lycopen/Lutein 1 tab PO DAILY 02/20/23 02/20/23 History [Centrum Silver Men Tablet] Potassium Gluconate 99 mg PO DAILY 02/20/23 02/20/23 History Pramipexole [Mirapex] 0.25 mg PO HS 02/20/23 02/20/23 History Tiotropium 2.5 Mcg/Puff [Spiriva 2 puff INHALATION RT-DAILY 02/20/23 02/20/23 History Respimat 2.5 Mcg] Zinc Gluconate [Zinc] 50 mg PO DAILY 02/20/23 02/20/23 History Allergies Allergy/AdvReac Type Severity Reaction Status Date / Time lisinopril AdvReac Bleeding Verified 02/20/23 15:03 warfarin AdvReac Bleeding Verified 02/20/23 15:03 Physical Exam Vitals: Vital Signs Temp Pulse Resp BP Pulse Ox FiO2 02/21/23 00:26 78 20 133/66 100 02/21/23 00:00 85 20 142/66 100 02/20/23 23:26 100 02/20/23 23:00 74 20 155/78 100 02/20/23 22:20 68 20 155/78 100 02/20/23 22:12 64 20 148/69 100 02/20/23 20:29 97.8 F 75 20 171/85 100 02/20/23 19:40 80 02/20/23 19:32 100 02/20/23 19:29 80 02/20/23 18:41 97.0 F L 78 20 163/67 100 02/20/23 18:29 73 20 138/86 100 02/20/23 16:20 100 02/20/23 16:00 98.0 F 70 20 106/63 100 02/20/23 15:54 78 20 99/64 98 02/20/23 14:34 74 94/51 02/20/23 14:12 80 67/30 02/20/23 14:05 90 110/87 02/20/23 13:55 90 20 111/68 100 02/20/23 13:45 84 20 93/58 100 02/20/23 13:40 90 20 83/51 100 02/20/23 13:23 100 02/20/23 13:07 90 20 95/68 100 02/20/23 13:05 92 20 74/55 100 02/20/23 12:58 101 H 20 79/67 99 02/20/23 12:52 100 20 94/66 100 02/20/23 12:50 100 02/20/23 12:45 101 H 20 90/64 100 02/20/23 12:40 122 H 20 99/69 02/20/23 12:35 117 H 20 184/98 99 02/20/23 12:30 107 H 20 57/30 99 02/20/23 12:25 116 H 20 85/63 99 02/20/23 12:23 8 L 02/20/23 12:20 166 H 20 78/56 98 02/20/23 12:11 144 H 10 L 103/83 84 L 100 Intake and Output 02/20/23 02/20/23 02/21/23 14:59 22:59 06:59 Intake Total 6.860 40.713 2.783 Output Total 30 Balance -23.140 40.713 2.783 Intake: Intake, IV Titration 6.860 40.713 2.783 Amount Norepinephrine 32 mg In 0.949 25.815 2.783 Sodium Chloride 0.9% 218 ml @ 0.03 MCG/KG/MIN 0. 759 mls/hr IV .Q24H [facility] Rx#:[id number] propofoL 1,000 mg In 5.911 14.898 Empty Bag 1 bag @ 15 MCG/ KG/MIN 4.858 mls/hr IV . [id number] [facility] Rx#:[id number] Output: Urine 30 Uretheral (Archuleta) 30 Other: Weight 53.977 kg ABP, PAP, CO, CI - Last 8 Hours Arterial Blood Pressure 165/82 GENERAL EXAM: Sedated and malnourished 82-year-old male, disheveled appearance and visibly dirty. HEAD: Normocephalic and atraumatic EYES: Pupils are 1+ bilaterally and equal in size. Sluggish reaction to light. NOSE: Clear with pink turbinates. THROAT: No erythema or exudates. Poor dentition NECK: No masses, no JVD. CHEST: No chest wall deformity. Pectus excavatum. Right-sided thoracotomy tube to suction with intermittent air leak. Right chest for that. LUNGS: Equal air entry with diffuse rhonchi throughout. Intubated to the mechanical ventilator CVS: S1 and S2 normal with no audible murmur, irregular rhythm. No extra heart sounds. Bedside monitor shows atrial fibrillation with controlled ventricular rate at 70 bpm ABDOMEN: No hepatosplenomegaly, active bowel sounds, no guarding or rigidity. SPINE: No scoliosis or deformity SKIN: No rashes CENTRAL NERVOUS SYSTEM: Sedated and only withdraws to painful stimuli. DTRs 1- 2+ throughout. Neutral Babinski EXTREMITIES: There is no peripheral edema, all 4 extremities are dusky in appearance, peripheral pulses are 1+ and intact. Results - Laboratory Findings CBC and BMP: 02/21/23 04:24 02/21/23 04:24 ABG ABG pH 7.42 (7.35-7.45) 02/21/23 00:02 ABG pCO2 53 mmHg (35-45) H 02/21/23 00:02 ABG pO2 >400 mmHg (83-108) H 02/21/23 00:02 ABG O2 Saturation 100.0 % (94-97) H 02/21/23 00:02 PT/INR, D-dimer PT 11.1 sec (9.0-12.0) 02/20/23 12:37 INR 1.1 (<1.2) 02/20/23 12:37 Abnormal lab findings: Abnormal Labs 02/20/23 02/20/23 02/20/23 12:15 12:37 12:37 WBC 11.7 H RBC 2.66 L Hgb 8.5 L Hct 28.3 L MCV 106.3 H MCHC 30.2 L Neutrophils # 9.9 H Lymphocytes # 0.8 L ABG pCO2 ABG pO2 ABG HCO3 ABG Total CO2 ABG O2 Saturation Chloride Carbon Dioxide BUN Glucose POC Glucose (mg/dL) 180 H Plasma Lactic Acid Nabil 2.1 H* Magnesium Urine Protein Hyaline Casts Urine Mucus 02/20/23 02/20/23 02/20/23 12:40 12:42 18:25 WBC RBC Hgb Hct MCV MCHC Neutrophils # Lymphocytes # ABG pCO2 ABG pO2 ABG HCO3 ABG Total CO2 ABG O2 Saturation Chloride 96 L Carbon Dioxide 39 H BUN 49 H Glucose 190 H POC Glucose (mg/dL) Plasma Lactic Acid Nabil 2.3 H* Magnesium 2.4 H Urine Protein 2+ H Hyaline Casts 16 H Urine Mucus Rare H 02/20/23 02/21/23 21:06 00:02 WBC RBC Hgb Hct MCV MCHC Neutrophils # Lymphocytes # ABG pCO2 53 H ABG pO2 >400 H ABG HCO3 34 H ABG Total CO2 36 H ABG O2 Saturation 100.0 H Chloride Carbon Dioxide BUN Glucose POC Glucose (mg/dL) Plasma Lactic Acid Nabil 3.7 H* Magnesium Urine Protein Hyaline Casts Urine Mucus - Diagnostic Findings Chest x-ray: image reviewed CT scan - chest: image reviewed Assessment and Plan Assessment: PEA cardiac arrest status post CPR and return of spontaneous circulation. Estimated down time was 1 minute. Patient was unresponsive on arrival, and ultimately intubated for airway protection. Follow-up chest CT did show development of a moderate to large sized right pneumothorax. Initial ThoraVent placement was not effective. The patient did require placement of a right thor acotomy tube, follow-up chest x-ray showed improvement of the right-sided pneumothorax. Moderate right-sided pneumothorax, status post ThoraVent and then right thoracotomy tube placement. Suspected left lower lobe pneumonia, possibly aspiration, and septic shock. Initial hypotension has resolved after fluid resuscitation and chest tube placement. Vasoperssor support initially required. COPD exacerbation, secondary to above. Patient has known severe emphysema with an FEV1 44% of predicted, partially reversible, and reduced DLCO on PFT from 2017 Acute on chronic hypoxemic and hypercapnic respiratory failure, currently on mechanical ventilator. Atrial fibrillation with controlled ventricular rate. Was in RVR on admission. Anemia, no obvious acute blood loss Lactic acidemia, improving Right middle lobe pulmonary nodule measuring 7 mm, recommended follow-up in 3-6 months History of nonischemic cardiomyopathy with an EF of 20-25%, estimated on most recently available echocardiogram done on September,. Status post implantation of AICD Hyperlipidemia Benign essential hypertension BPH Plan: Patient's medications, labs, chest x-ray, chest CT were reviewed Continue on mechanical ventilator Titrate FiO2 as tolerated Continue right-sided chest tube to suction Repeat chest x-ray in the morning Patient is currently on a combination of bronchodilators, budesonide, fo rmoterol, and IV Solu-Medrol Patient is currently hypertensive, and will likely be able to be weaned off Levophed Continue propofol for sedation Insert Archuleta catheter for accurate intake and output Switch patient to Zosyn for possible aspiration Lactic acid levels are trending down Normal saline was started at 130 mL per hour Eliquis is currently on hold per admitting 2-D echocardiogram in the morning Heparin for DVT prophylaxis Protonix for GI prophylaxis Advance OG tube 9 cm per most recent chest x-ray, and placed to low intermittent suction A right radial arterial line inserted for continuous blood pressure monitoring and frequent lab draws Patient's condition is currently critical, and he is a full code. I did speak to the patient's POA and daughter, and they would like to continue with current treatment at this time. Prognosis is guarded due to above mentioned comorbidities. Patient will be admitted to the intensive care unit once bed available. I have personally seen and examined the patient, performed the documentation and the assessment and plan as written. Number of minutes spent on the visit:20 This is a joint evaluation that was done along with the nurse practitioner. The patient is post PEA cardiac arrest probably induced by an underlying right- sided pneumothorax. The patient was stated, intubated and placed on a mechanical ventilator. The patient has a right-sided chest tube and a thoravent in place. Repeat chest x-ray from today shows adequate expansion of the right lung. No evidence of any air leak through the chest tube. Currently intubated on a mechanical ventilator. He is on assist-control mode at a rate of 20, tidal volume of 350, FiO2 of 40% with a PEEP of 5. Peak pressures 21. Breath sounds are equal and symmetrical. Chest x-ray shows consolidation lung base bilaterally worse on the left. There is also small bilateral pleural effusions. ET tube is in good location. There is a right-sided chest tube without evidence of any pneumothorax. The patient is currently on bronchodilators, steroids, and is also covered with IV Zosyn. Pressors were used yesterday for hypotension currently is normotensive. He is on propofol which is running at the rate of 40 mcg/kg/m. He grimaces to painful stimulation. Cardiac rhythm is atrial fibrillation. His rate is controlled for now. We are going to restart Eliquis on this patient. Stop the subcu heparin. Echocardiogram is pending from today. Awaiting more family to arrive. The patient has a power of corporate associate attorney which is a friend and the daughter lives in [place] and she is aware of those changes. We will also start the patient on enteral feeding for nutritional support. It seems that his baseline performance of functional status has been poor and the patient has been in a poor state of health, covered with dirt at the time of his admission. We'll also background her IV fluids to 75 mL an hour.critical care evaluation done in > 30 min. Time with Patient: Greater than 30
--- NOTE | 2023-02-21 02:20 | P.PCN ---
Date of Procedure: 02/21/23 Preoperative Diagnosis: Hypotension and shock Postoperative Diagnosis: Hypotension and shock Procedure(s) Performed: Insertion of a right radial arterial line Indications for Procedure: Continuous blood pressure monitoring and frequent blood draws Description of Procedure: Informed consent was obtained, and a procedural timeout was performed . The patient was placed in supine position. The right radial region was prepared in a sterile fashion, and a sterile drape was applied. The right radial artery was palpated, easily cannulated, and a guidewire was placed. A Cook catheter was inserted over the guidewire, and the guidewire was removed. There was good arterial blood flow, good arterial waveform, and no complications. The line was secured with using a 3-0 silk suture.
[2023-02-21] MEDS: SODIUM CHLORIDE 0.9% 1,000 ML IV SCH ×3 (02:39→19:59)
[2023-02-21 03:25] LABS: Appearance,Urine Clear (Clear); Bacteria,Urine Rare /hpf; Bilirubin,Urine Negative (Negative); Blood,Urine Moderate (Negative); Cellular Casts,Urine 1 /lpf (0); Color,Urine Yellow; Glucose,Urine (UA) Negative (Negative); Granular Casts,Urine 3 /lpf (0); Hyaline Casts,Urine 1 /lpf (0-2); Ketones,Urine 1+ (Negative); Leukocyte Esterase,Urine Negative (Negative); Mucus,Urine Rare /hpf; Nitrite,Urine Negative (Negative); PH, Urine 5.5 (5.0-8.0); Protein,Urine 1+ (Negative); RBC,Urine 105 /hpf (0-5); Squamous Epithelial Cell,Urine <1 /hpf (0-4); Urobilinogen,Urine <2.0 mg/dL (<2.0); WBC,Urine 6 /hpf (0-5)
[2023-02-21 03:38] LABS: Specific Gravity,Urine >1.050 (1.001-1.035)
[2023-02-21 04:44] LABS: Basophils % (A) 0 %; Eosinophils % (A) 0 %; HCT 30.7 % (39.0-53.0); HGB 9.5 gm/dL (13.0-17.5); Hypochromasia Slight; Lymphocytes # (A) 0.2 k/uL (1.0-4.8); Lymphocytes % (A) 2 %; MCH 31.5 pg (25.0-35.0); MCV 101.7 fL (80.0-100.0); Macrocytosis Slight; Mean Platelet Volume 9.4; Monocytes # (A) 0.6 k/uL (0-1.0); Monocytes % (A) 6 %; Neutrophils # (A) 9.2 k/uL (1.3-7.7); Neutrophils % (A) 91 %; Platelet Count 171 k/uL (150-450); RBC 3.02 m/uL (4.30-5.90); RDW 13.9 % (11.5-15.5); WBC 10.1 k/uL (3.8-10.6)
[2023-02-21 05:01] LABS: ALT 14 U/L (4-49); AST 18 U/L (17-59); African American GFR (CKD) 82 (>60 ml/min/1.73 sqM); Alkaline Phosphatase 65 U/L (38-126); Anion Gap 5 mmol/L; Blood Urea Nitrogen 56 mg/dL (9-20); Calcium 8.7 mg/dL (8.4-10.2); Carbon Dioxide 35 mmol/L (22-30); Chloride 103 mmol/L (98-107); Glucose 123 mg/dL (74-99); Magnesium 2.2 mg/dL (1.6-2.3); Non-African American GFR(CKD) 71 (>60 ml/min/1.73 sqM); Potassium 4.1 mmol/L (3.5-5.1); Sodium 143 mmol/L (137-145); Total Bilirubin 0.3 mg/dL (0.2-1.3); Total Protein 5.4 g/dL (6.3-8.2)
[2023-02-21 06:24] LABS: ABG Base Excess 8.3 mmol/L; ABG HCO3 33 mmol/L (21-25); ABG Oxygen Saturation 99.2 % (94-97); ABG PCO2 51 mmHg (35-45); ABG PH 7.42 (7.35-7.45); ABG PO2 150 mmHg (83-108); ABG TCO2 34 mmol/L (19-24); Allen Test Performed? Yes
[2023-02-21 08:09] LABS: Glucose,Whole Blood 136 mg/dL (70-110)
--- NOTE | 2023-02-21 08:24 | XR ---
EXAMINATION TYPE: XR chest 1V portable DATE OF EXAM: 02/21/2023 6:59 AM COMPARISON: Chest radiographs from one day prior TECHNIQUE: XR chest 1V portable Frontal view of the chest. CLINICAL INDICATION:Male, 82 years old with history of Tube placement; FINDINGS: Lungs/Pleura: Trace right apical pneumothorax remains present. There is no evidence of right pleural effusion, left focal consolidation, or left pneumothorax. Blunting of left costophrenic angle. Pulmonary vascularity: Unremarkable. Heart/mediastinum: Cardiomediastinal silhouette is unremarkable. Atherosclerotic calcifications are seen in the aorta. Musculoskeletal: No acute osseous pathology. Other findings: None Lines/Tubes: Endotracheal tube with distal tip 7.2 cm above the saeid. Nasogastric tube with side-port projecting over the distal esophagus. Right sided thoracotomy tubes are present. There may be trace pneumothorax with visceral pleural line in the lung apex IMPRESSION: 1. Right thoracotomy tubes with trace right pneumothorax. 2. Trace left pleural effusion. 3. Endotracheal tube remains in the distal esophagus and advancement of 12 cm is recommended for opti mal placement.
[2023-02-21] MEDS ORDERED: TAMSULOSIN 0.4 MG CAP.ER.24H PO SCH (09:00)
[2023-02-21] MEDS ORDERED: APIXABAN 5 MG TAB PO SCH (09:00)
[2023-02-21] MEDS ORDERED: FERROUS SULFATE 325 MG TAB PO SCH (09:00)
[2023-02-21] MEDS ORDERED: METOPROLOL SUCCINATE (ER) 25 MG TAB.ER.24H PO SCH (09:00)
[2023-02-21] MEDS ORDERED: ENOXAPARIN 40 MG/0.4 ML SYRINGE SQ SCH (09:00)
[2023-02-21] MEDS ORDERED: HEPARIN SODIUM,PORCINE/PF 5,000 UNIT/0.5 ML SYRINGE SQ SCH (09:00)
[2023-02-21] MEDS ORDERED: AZITHROMYCIN 500 MG TAB PO SCH (09:00)
[2023-02-21] MEDS: FORMOTEROL FUMARATE 20 MCG/2 ML NEBU INHALATION SCH ×2 (09:03→21:20)
[2023-02-21] MEDS: BUDESONIDE 1 MG/2 ML NEBU INHALATION SCH ×2 (09:03→21:21)
--- NOTE | 2023-02-21 09:11 | XR ---
EXAMINATION TYPE: XR chest 1V portable DATE OF EXAM: 02/21/2023 9:04 AM COMPARISON: Chest radiographs from same day TECHNIQUE: XR chest 1V portable Frontal view of the chest. CLINICAL INDICATION:Male, 82 years old with history of low spo2; FINDINGS/IMPRESSION: Interval increase in right pneumothorax now large with removal of the right anterior thoracotomy tube . Nasogastric tube remains in the distal esophagus.
[2023-02-21] MEDS: CHLORHEXIDINE GLUCONATE 15 ML CUP MUCOUS MEM SCH ×2 (10:06→21:00)
[2023-02-21] MEDS: PANTOPRAZOLE 40 MG/10 ML VIAL IV SCH (10:07)
[2023-02-21] MEDS: methylPREDNISolone SOD SUCCI 40 MG/ML 1 ML VIAL IV SCH ×3 (10:09→17:56)
[2023-02-21] MEDS: APIXABAN 2.5 MG TABLET PO SCH ×2 (10:38→21:49)
--- NOTE | 2023-02-21 10:40 | P.CRDCN ---
History of Present Illness Consult date: 02/21/23 History of present illness: History of Present Illness: The patient is an 82-year-old male with a known history of severe nonischemic cardiomyopathy, post cardiac catheterization in 2013, chronic persistent atrial fibrillation, status post ICD implantation and severe COPD who presented with symptoms of progressive dyspnea in route to the hospital he had PEA cardiac ar rest underwent CPR was intubated and was found to have evidence of moderate right sided pneumothorax. He underwent placement of ThoraVent and chest tube.. He was in atrial fibrillation. Initially he was on vasopressors was subsequently stopped. Patient has a known history of significant COPD with FEV1 of 44%. He is sedated, intubated, in atrial fibrillation. His ventricular rate is controlled. His blood pressure is stable and his urinary output is stable. On presentation his troponin was normal and his NT proBNP was 3400. His plasma lactic acid was elevated. He had no evidence of ventricular ectopic activity. It is unclear when he was evaluated in the office last time. Medications: Lipitor 10 mg daily, Lasix 40 mg daily, Flomax, metoprolol succinate 12.5 mg twice a day, vitamin D, vitamin B, Proventil, Ventolin, Singulair,Eliquis 5 mg twice a day Review of Systems: Intubated could not be obtained Physical Examination: 82-year-old male, intubated and sedated ,Blood pressure 145/70, Heart rate 90 Head: Normocephalic. Eyes: Sclerae nonicteric. Neck: Good carotid upstroke, no bruit, no jugular venous distention. Lungs: Clear to auscultation. Heart: Irregular rate and rhythm, S1-S2, no S3, no rub. Systolic ejection murmur. ICD noted in the left subclavian area Abdomen: Soft , positive bowel sounds no organomegaly. Extremities: No edema, intact distal pulses. Labs: Hemoglobin 9.5, WBC 10.1. PH 7.42, pCO2 51, pO2 150. Potassium 4.1 BUN 56, creatinine 0.98. Chest x-ray consistent with right pneumothorax EKG: Atrial fibrillation with right bundle-branch block and nonspecific ST-T wave changes Impression: 1. Respiratory failure with probable exacerbation of COPD and spontaneous pneumothorax 2. PEA cardiac arrest, most likely related to his pneumothorax 3. History of nonischemic cardiomyopathy. No evidence of acute ischemia or acute heart failure at this time. 4. Chronic persistent atrial fibrillation 5. History of ICD Plan: 1. Obtain an echocardiogram with Doppler 2. Start metoprolol tartrate 3. Continue anticoagulation 4. Management of pneumothorax per pulmonary service 5. Depending on his progress further recommendations will be made, thank you for this consult we will follow with you. Past Medical History Past Medical History: Atrial Fibrillation, Asthma, COPD, Hypertension, Myocardial Infarction ([place]), Osteoarthritis (OA), Pneumonia, Prostate Disorder Additional Past Medical History / Comment(s): See Dr Luo H & P, rash on top of head, O2 -3 LITERS N/C,PREVIOUSLY NOTED THAT PT HAD HX OF IN PT WAS'NT AWARE OF THIS. BACK PAIN, SCIATIC NERVE PAIN, ASTHMA/BRNCHITIS, DDD,SCOLIOSIS Last Myocardial Infarction Date:: 2012 History of Any Multi-Drug Resistant Organisms: None Reported Past Surgical History: AICD, Heart Catheterization, Tonsillectomy Additional Past Surgical History / Comment(s): cardioversion, cataracts removed, left hand pink finger surgery Past Anesthesia/Blood Transfusion Reactions: Motion Sickness Additional Past Anesthesia/Blood Transfusion Reaction / Comment(s): PT HAS NEVER HAD A BLOOD TRANSFUSION. Type of Cardiac Device: AICD Device Placement Date:: 2014 Past Psychological History: No Psychological Hx Reported Smoking Status: Unknown if ever smoked Past Alcohol Use History: None Reported Past Drug Use History: None Reported - Past Family History Father Family Medical History: Cancer, Prostate Disorder Additional Family Medical History / Comment(s): FATHER HAD PROSTATE CANCER Mother Family Medical History: No Reported History Additional Family Medical History / Comment(s): MOTHER IS ALIVE AT 94 AND IN EXCELLENT HEALTH. Medications and Allergies Home Medications Medication Instructions Recorded Confirmed Type HYDROcodone/APAP 10-325MG [Davis 1 tab PO Q6H PRN 08/12/14 02/20/23 History 10-325] Albuterol Sulfate [Proventil Hfa] 2 puff INHALATION RT-QID PRN 09/21/16 02/20/23 History Apixaban [Eliquis] 5 mg PO BID 01/21/17 02/20/23 History Atorvastatin [Lipitor] 10 mg PO HS 01/21/17 02/20/23 History Ferrous Sulfate [Feosol] 325 mg PO BID 01/21/17 02/20/23 History Tamsulosin HCl [Flomax] 0.4 mg PO DAILY 01/21/17 02/20/23 History Albuterol Nebulized [Ventolin 2.5 mg INHALATION RT-Q4H PRN 02/20/23 02/20/23 History Nebulized] Ascorbic Acid [Vitamin C] 1,000 mg PO DAILY 02/20/23 02/20/23 History Budesonide [Pulmicort] 0.5 mg INHALATION RT-BID 02/20/23 02/20/23 History Cholecalciferol [Vitamin D3 (125 250 mcg PO DAILY 02/20/23 02/20/23 History Mcg = 5000 Iu)] Cyanocobalamin (Vitamin B-12) 1,000 mcg PO DAILY 02/20/23 02/20/23 History [Vitamin B-12] Famotidine 40 mg PO DAILY 02/20/23 02/20/23 History Fluticasone Propion/Salmeterol 1 puff INHALATION RT-BID 02/20/23 02/20/23 History [Wixela 500-50 Inhub] Furosemide [Lasix] 40 mg PO DAILY 02/20/23 02/20/23 History Metoprolol Succinate (ER) [Toprol 12.5 mg PO BID 02/20/23 02/20/23 History XL] Montelukast [Singulair] 10 mg PO DAILY 02/20/23 02/20/23 History Multivit-Min/FA/Lycopen/Lutein 1 tab PO DAILY 02/20/23 02/20/23 History [Centrum Silver Men Tablet] Potassium Gluconate 99 mg PO DAILY 02/20/23 02/20/23 History Pramipexole [Mirapex] 0.25 mg PO HS 02/20/23 02/20/23 History Tiotropium 2.5 Mcg/Puff [Spiriva 2 puff INHALATION RT-DAILY 02/20/23 02/20/23 History Respimat 2.5 Mcg] Zinc Gluconate [Zinc] 50 mg PO DAILY 02/20/23 02/20/23 History Allergies Allergy/AdvReac Type Severity Reaction Status Date / Time lisinopril AdvReac Bleeding Verified 02/20/23 15:03 warfarin AdvReac Bleeding Verified 02/20/23 15:03 Physical Exam Vitals: Vital Signs Temp Pulse Resp BP Pulse Ox FiO2 02/21/23 09:25 92 02/21/23 09:14 92 02/21/23 09:03 92 02/21/23 09:00 89 20 145/79 99 02/21/23 08:00 97.7 F 105 H 20 150/80 100 60 02/21/23 07:55 90 20 148/79 99 02/21/23 07:45 40 02/21/23 07:24 93 21 130/64 96 02/21/23 06:28 40 02/21/23 06:00 93 02/21/23 05:50 79 02/21/23 05:43 50 02/21/23 02:00 82 20 99/53 99 02/21/23 00:26 78 20 133/66 100 02/21/23 00:00 85 20 142/66 100 02/20/23 23:26 100 02/20/23 23:00 74 20 155/78 100 02/20/23 22:20 68 20 155/78 100 02/20/23 22:12 64 20 148/69 100 02/20/23 20:29 97.8 F 75 20 171/85 100 02/20/23 19:40 80 02/20/23 19:32 100 02/20/23 19:29 80 02/20/23 18:41 97.0 F L 78 20 163/67 100 02/20/23 18:29 73 20 138/86 100 02/20/23 16:20 100 02/20/23 16:00 98.0 F 70 20 106/63 100 02/20/23 15:54 78 20 99/64 98 02/20/23 14:34 74 94/51 02/20/23 14:12 80 67/30 02/20/23 14:05 90 110/87 02/20/23 13:55 90 20 111/68 100 02/20/23 13:45 84 20 93/58 100 02/20/23 13:40 90 20 83/51 100 02/20/23 13:23 100 02/20/23 13:07 90 20 95/68 100 02/20/23 13:05 92 20 74/55 100 02/20/23 12:58 101 H 20 79/67 99 02/20/23 12:52 100 20 94/66 100 02/20/23 12:50 100 02/20/23 12:45 101 H 20 90/64 100 02/20/23 12:40 122 H 20 99/69 02/20/23 12:35 117 H 20 184/98 99 02/20/23 12:30 107 H 20 57/30 99 02/20/23 12:25 116 H 20 85/63 99 02/20/23 12:23 8 L 02/20/23 12:20 166 H 20 78/56 98 02/20/23 12:11 144 H 10 L 103/83 84 L 100 Intake and Output 02/20/23 02/21/23 02/21/23 22:59 06:59 14:59 Intake Total 40.713 81.974 Balance 40.713 81.974 Intake: Intake, IV Titration 40.713 81.974 Amount Norepinephrine 32 mg In 25.815 2.783 Sodium Chloride 0.9% 218 ml @ 0.03 MCG/KG/MIN 0. 759 mls/hr IV .Q24H [facility] Rx#:[id number] propofoL 1,000 mg In 14.898 79.191 Empty Bag 1 bag @ 15 MCG/ KG/MIN 4.858 mls/hr IV . [id number] [facility] Rx#:[id number] Other: Voiding Method Indwelling Catheter ABP, PAP, CO, CI - Last 8 Hours Arterial Blood Pressure 154/80 Results 02/21/23 04:24 02/21/23 04:24 Cardiac Enzymes 02/20/23 02/20/23 02/21/23 Range/Units 12:37 12:40 04:24 AST 28 18 (17-59) U/L Troponin I <0.012 (0.000-0.034) ng/mL Coagulation 02/20/23 Range/Units 12:37 PT 11.1 (9.0-12.0) sec APTT 25.0 (22.0-30.0) sec CBC 02/20/23 02/21/23 Range/Units 12:37 04:24 WBC 11.7 H 10.1 (3.8-10.6) k/uL RBC 2.66 L 3.02 L (4.30-5.90) m/uL Hgb 8.5 L 9.5 L (13.0-17.5) gm/dL Hct 28.3 L 30.7 L (39.0-53.0) % Plt Count 198 171 (150-450) k/uL Comprehensive Metabolic Panel 02/20/23 02/21/23 Range/Units 12:40 04:24 Sodium 143 143 (137-145) mmol/L Potassium 5.0 4.1 (3.5-5.1) mmol/L Chloride 96 L 103 (98-107) mmol/L Carbon Dioxide 39 H 35 H (22-30) mmol/L BUN 49 H 56 H (9-20) mg/dL Creatinine 0.84 0.98 (0.66-1.25) mg/dL Glucose 190 H 123 H (74-99) mg/dL Calcium 9.9 8.7 (8.4-10.2) mg/dL AST 28 18 (17-59) U/L ALT 16 14 (4-49) U/L Alkaline Phosphatase 90 65 (38-126) U/L Total Protein 7.6 5.4 L (6.3-8.2) g/dL Albumin 4.1 3.0 L (3.5-5.0) g/dL Current Medications Generic Name Dose Route Start Last Admin Trade Name Freq PRN Reason Stop Dose Admin Acetaminophen 650 mg 02/20/23 18:06 Acetaminophen Tab 325 Mg Tab PO Q4HR PRN Fever and/or Mild Pain Albuterol/Ipratropium 3 ml 02/20/23 16:00 02/21/23 09:03 Ipratropium-Albuterol 3 Ml Neb INHALATION 3 ml RT-Q4H [facility] Administration Albuterol/Ipratropium 3 ml 02/20/23 12:23 Ipratropium-Albuterol 3 Ml Neb INHALATION RT-Q2H PRN Shortness Of Breath Or Wheezing Apixaban 2.5 mg 02/21/23 10:00 Apixaban 2.5 Mg Tablet PO BID [facility] Protocol Atorvastatin Calcium 10 mg 02/21/23 21:00 Atorvastatin 10 Mg Tab PO HS [facility] Budesonide 1 mg 02/21/23 08:00 02/21/23 09:03 Budesonide 1 Mg/2 Ml Nebu INHALATION 1 mg RT-BID [facility] Administration Chlorhexidine Gluconate 15 ml 02/21/23 09:00 02/21/23 10:06 Chlorhexidine Gluconate 15 Ml Cup MUCOUS MEM 15 ml BID [facility] Administration Formoterol Fumarate 20 mcg 02/21/23 08:00 02/21/23 09:03 Formoterol Fumarate 20 Mcg/2 Ml Nebu INHALATION 20 mcg RT-BID [facility] Administration Propofol 1,000 mg/ IV Solution 100 mls @ 4.858 mls/hr 02/20/23 12:30 02/21/23 07:50 IV 40 mcg/kg/min .[id number] [facility] 12.954 mls/hr Administration Protocol 15 MCG/KG/MIN Norepinephrine Bitartrate 32 250 mls @ 0.759 mls/hr 02/20/23 12:48 02/21/23 00:31 mg/ Sodium Chloride IV 02/21/23 12:47 0 mcg/kg/min .Q24H ONE 0 mls/hr Titration Protocol 0.03 MCG/KG/MIN Sodium Chloride 1,000 mls @ 75 mls/hr 02/21/23 00:15 02/21/23 10:07 Saline 0.9% IV 75 mls/hr .[id number] [facility] Administration Piperacillin Sod/Tazobactam 100 mls @ 25 mls/hr 02/21/23 02:00 02/21/23 10:09 Sod 3.375 gm/ Sodium Chloride IVPB 25 mls/hr Q8H [facility] Administration Protocol Lorazepam 2 mg 02/20/23 12:23 Lorazepam 2 Mg/Ml Inj IV Q1HR PRN Severe Agitation Lorazepam 1 mg 02/20/23 12:23 Lorazepam 2 Mg/Ml Inj IV Q1HR PRN Mild Agitation Methylprednisolone Sodium Succinate 40 mg 02/21/23 06:00 02/21/23 10:09 Methylprednisolone Sod Succi 40 Mg/Ml 1 Ml Vial IV 40 mg Q6HR [facility] Administration Metoprolol Succinate 12.5 mg 02/21/23 09:00 Metoprolol Succinate (Er) 25 Mg Tab.Er.24h PO BID [facility] Miscellaneous Information 1 each 02/20/23 12:56 Pneumonia Protocol Utilized 1 Each Misc PO ONCE PRN Per Protocol Miscellaneous Information 1 each 02/20/23 13:15 Rx Info: Iv Contrast Was Given 1 Each Misc MISCELLANE 02/22/23 13:16 DAILY PRN Per Protocol Naloxone HCl 0.2 mg 02/20/23 18:06 Naloxone 0.4 Mg/Ml 1 Ml Vial IV Q2M PRN Opioid Reversal Pantoprazole Sodium 40 mg 02/21/23 09:00 02/21/23 10:07 Pantoprazole 40 Mg/10 Ml Vial IV 40 mg DAILY [facility] Administration Intake and Output 02/20/23 02/21/23 02/21/23 22:59 06:59 14:59 Intake Total 40.713 81.974 Balance 40.713 81.974 Intake: Intake, IV Titration 40.713 81.974 Amount Norepinephrine 32 mg In 25.815 2.783 Sodium Chloride 0.9% 218 ml @ 0.03 MCG/KG/MIN 0. 759 mls/hr IV .Q24H [facility] Rx#:[id number] propofoL 1,000 mg In 14.898 79.191 Empty Bag 1 bag @ 15 MCG/ KG/MIN 4.858 mls/hr IV . [id number] [facility] Rx#:[id number] Other: Voiding Method Indwelling Catheter 02/21/23 04:24 02/21/23 04:24
[2023-02-21] MEDS: METOPROLOL TARTRATE 25 MG TAB PO SCH ×2 (11:23→21:51)
--- NOTE | 2023-02-21 11:43 | XR ---
EXAMINATION TYPE: XR chest 1V portable DATE OF EXAM: 02/21/2023 11:32 AM COMPARISON: Chest radiographs from same day TECHNIQUE: XR chest 1V portable Frontal view of the chest. CLINICAL INDICATION:Male, 82 years old with history of Reassess pneumo and placement of chest tube; FINDINGS/IMPRESSION: Stable large right pneumothorax. Nasogastric tube remains in the distal esophagus. Subcutaneous emphy sema along the right chest wall.
[2023-02-21 11:49] LABS: Glucose,Whole Blood 68 mg/dL (70-110)
--- NOTE | 2023-02-21 12:39 | P.PN ---
Subjective Progress Note Date: 02/21/23 Patient is an 82-year-old male with atrial fibrillation, systolic congestive heart failure, COPD, hypertension, and prior AICD implantation who presented to the ER in severe respiratory distress. Patient had an out of hospital PEA arrest with CPR delivered by EMS for approximately 1 minute. On arrival there vital signs were significantly abnormal with a pulse of 144, respiratory rate of 10, and O2 sat of 84% on room air. He was emergently intubated. Initial chest x-ray showed right-sided pneumothorax. Initial EKG showed atrial fibrillation with rapid ventricular response. CT chest was completed which showed moderate right-sided pneumothorax, nasogastric tube in the esophagus, left long infectious or inflammatory process, right middle lobe pulmonary nodule, severe emphysematous changes, severe atherosclerosis, and colonic diverticulosis. Patient had a right-sided thoravent placed and then a chest tube. Initial laboratory analysis was remarkable for white blood cell count 11.7, hemoglobin 8.5, BUN 49, lactic acid 2.1, blood sugar 190. COVID-19 testing was negative. BNP was elevated at 3400. Initial troponin was negative at 0.012. Patient was started on bronchodilators, Zosyn, and was subsequently admitted to the ICU. He did require levophed for less than 24 hours. Critical care was consulted. Cardiology was consulted for A. fib. Patient seen and examined at bedside. He is intubated and on the vent. No significant events overnight. Now off of levophed. Vital signs reviewed Vital signs reviewed General: Ill-appearing, cachectic with temporal and buccal wasting Derm: darkened area over lower chest wall. Cardiovascular: S1S2 reg, no murmur, positive posterior tibial pulse bilateral, Lungs: Decreased bs right with crepitus over chest wall, no rhonchi, no rales , no accessory muscle use, on vent Abdominal: soft, nontender to palpation, no guarding, no appreciable organomegaly Ext: + gross muscle atrophy, no edema b/l lower extremities, no contractures Neuro: Breathing over vent, + cough, + gag Psych: Sedated on vent Assessment/Plan: Right-sided pneumothorax status post thorvent and Chest tube on 02/20/23, thoravent removed on 02/21. Acute exacerbation of COPD Possible left-sided pneumonia with septic shock Acute on chronic hypoxic respiratory failure -Zosyn 3.375 g IV every 8 hours -Continue normal saline decreased to NS at 75 cc/hr -Continue with scheduled and when necessary DuoNeb, Pulmicort, and puriform minutes - Pulmonary recommendations reviewed with: Continue with chest tube to suction, patient had been transitioned to Zosyn for possible aspiration - D/W Dr. Eduardo and will follow CXR closely. Atrial fibrillation Status post PEA arrest Compensated systolic congestive heart failure, last known EF 20-25% in 2017 -Consult cardiology -Check echocardiogram -Metoprolol restarted with hypotension resloved. , Eliquis was on hold secondary to low hemoglobin level this is elevating and eliquis can be resumed if okay with pulmonary. -Lasix on hold secondary to requiring fluid resuscitation -Lipitor 10 mg at nightly Anemia, undetermined etiology -Follow CBC, last known hemoglobin was in 2017 was 13.3 -Check iron studies, patient is on iron supplementation at home -Monitor for signs or symptoms of bleeding Chronic: Hypertension Prior myocardial infarction BPH Chronic O2 dependency at 3 L Back pain Imaging: Chest x-ray reviewed by myself which shows poor event in place right chest wall with residual right pneumothorax Last echocardiogram from 2017 was reviewed which showed an ejection fraction of 20-25% with severe global hypokinesis of the left ventricle. Data Review: Vital signs from this morning reviewed pulse 93, respirations 21, blood pressure 130/64, O2 sat 96% on vent Laboratory analysis reviewed and remarkable for hemoglobin 9.5, BUN 56, ABG was pH 7.42, pCO2 51 and PaO2 150 DVT prophylaxis: SCDs Anticipated discharge date: Pending Clinical Course Anticipated discharge place: Pending Clinical Course This dictation was prepared using gDecide voice recognition software. Though every attempt is made to correct errors during dictation some may still exist. Objective - Vital Signs Vital signs: Vital Signs Temp 97.8 F 02/20/23 20:29 Pulse 93 02/21/23 07:24 Resp 21 02/21/23 07:24 BP 130/64 02/21/23 07:24 Pulse Ox 96 02/21/23 07:24 FiO2 40 02/21/23 07:45 Intake & Output 02/20/23 02/21/23 02/21/23 18:59 06:59 18:59 Intake Total 21.758 28.598 Output Total 30 Balance -8.242 28.598 Weight 53.977 kg Intake: Intake, IV Titration 21.758 28.598 Amount Norepinephrine 32 mg In 0.949 28.598 Sodium Chloride 0.9% 218 ml @ 0.03 MCG/KG/MIN 0. 759 mls/hr IV .Q24H [facility] Rx#:[id number] propofoL 1,000 mg In 20.809 0 Empty Bag 1 bag @ 15 MCG/ KG/MIN 4.858 mls/hr IV . [id number] [facility] Rx#:[id number] Output: Urine 30 Uretheral ([place]) 30 ABP, PAP, CO, CI - Last Documented Arterial Blood Pressure 165/82 - Labs CBC & Chem 7: 02/21/23 04:24 07 04:24 Labs: Abnormal Lab Results - Last 24 Hours (Table) 02/20/23 02/20/23 02/20/23 Range/Units 12:15 12:37 12:37 WBC 11.7 H (3.8-10.6) k/uL RBC 2.66 L (4.30-5.90) m/uL Hgb 8.5 L (13.0-17.5) gm/dL Hct 28.3 L (39.0-53.0) % MCV 106.3 H (80.0-100.0) fL MCHC 30.2 L (31.0-37.0) g/dL Neutrophils # 9.9 H (1.3-7.7) k/uL Lymphocytes # 0.8 L (1.0-4.8) k/uL ABG pCO2 (35-45) mmHg ABG pO2 (83-108) mmHg ABG HCO3 (21-25) mmol/L ABG Total CO2 (19-24) mmol/L ABG O2 Saturation (94-97) % Chloride (98-107) mmol/L Carbon Dioxide (22-30) mmol/L BUN (9-20) mg/dL Glucose (74-99) mg/dL POC Glucose (mg/dL) 180 H (70-110) mg/dL Plasma Lactic Acid Nabil 2.1 H* (0.7-2.0) mmol/L Magnesium (1.6-2.3) mg/dL Total Protein (6.3-8.2) g/dL Albumin (3.5-5.0) g/dL Ur Specific [place] (1.001-1.035) Urine Protein (Negative) Urine Ketones (Negative) Urine Blood (Negative) Urine RBC (0-5) /hpf Urine WBC (0-5) /hpf Urine Bacteria (None) /hpf Hyaline Casts (0-2) /lpf Urine Mucus (None) /hpf 02/20/23 02/20/23 02/20/23 Range/Units 12:40 12:42 18:25 WBC (3.8-10.6) k/uL RBC (4.30-5.90) m/uL Hgb (13.0-17.5) gm/dL Hct (39.0-53.0) % MCV (80.0-100.0) fL MCHC (31.0-37.0) g/dL Neutrophils # (1.3-7.7) k/uL Lymphocytes # (1.0-4.8) k/uL ABG pCO2 (35-45) mmHg ABG pO2 (83-108) mmHg ABG HCO3 (21-25) mmol/L ABG Total CO2 (19-24) mmol/L ABG O2 Saturation (94-97) % Chloride 96 L (98-107) mmol/L Carbon Dioxide 39 H (22-30) mmol/L BUN 49 H (9-20) mg/dL Glucose 190 H (74-99) mg/dL POC Glucose (mg/dL) (70-110) mg/dL Plasma Lactic Acid Nabil 2.3 H* (0.7-2.0) mmol/L Magnesium 2.4 H (1.6-2.3) mg/dL Total Protein (6.3-8.2) g/dL Albumin (3.5-5.0) g/dL Ur Specific [place] (1.001-1.035) Urine Protein 2+ H (Negative) Urine Ketones (Negative) Urine Blood (Negative) Urine RBC (0-5) /hpf Urine WBC (0-5) /hpf Urine Bacteria (None) /hpf Hyaline Casts 16 H (0-2) /lpf Urine Mucus Rare H (None) /hpf 02/20/23 02/21/23 02/21/23 Range/Units 21:06 00:02 00:50 WBC (3.8-10.6) k/uL RBC (4.30-5.90) m/uL Hgb (13.0-17.5) gm/dL Hct (39.0-53.0) % MCV (80.0-100.0) fL MCHC (31.0-37.0) g/dL Neutrophils # (1.3-7.7) k/uL Lymphocytes # (1.0-4.8) k/uL ABG pCO2 53 H (35-45) mmHg ABG pO2 >400 H (83-108) mmHg ABG HCO3 34 H (21-25) mmol/L ABG Total CO2 36 H (19-24) mmol/L ABG O2 Saturation 100.0 H (94-97) % Chloride (98-107) mmol/L Carbon Dioxide (22-30) mmol/L BUN (9-20) mg/dL Glucose (74-99) mg/dL POC Glucose (mg/dL) (70-110) mg/dL Plasma Lactic Acid Nabil 3.7 H* 2.7 H* (0.7-2.0) mmol/L Magnesium (1.6-2.3) mg/dL Total Protein (6.3-8.2) g/dL Albumin (3.5-5.0) g/dL Ur Specific [place] (1.001-1.035) Urine Protein (Negative) Urine Ketones (Negative) Urine Blood (Negative) Urine RBC (0-5) /hpf Urine WBC (0-5) /hpf Urine Bacteria (None) /hpf Hyaline Casts (0-2) /lpf Urine Mucus (None) /hpf 02/21/23 02/21/23 02/21/23 Range/Units 02:12 04:24 04:24 WBC (3.8-10.6) k/uL RBC 3.02 L (4.30-5.90) m/uL Hgb 9.5 L (13.0-17.5) gm/dL Hct 30.7 L (39.0-53.0) % MCV 101.7 H (80.0-100.0) fL MCHC (31.0-37.0) g/dL Neutrophils # 9.2 H (1.3-7.7) k/uL Lymphocytes # 0.2 L (1.0-4.8) k/uL ABG pCO2 (35-45) mmHg ABG pO2 (83-108) mmHg ABG HCO3 (21-25) mmol/L ABG Total CO2 (19-24) mmol/L ABG O2 Saturation (94-97) % Chloride (98-107) mmol/L Carbon Dioxide 35 H (22-30) mmol/L BUN 56 H (9-20) mg/dL Glucose 123 H (74-99) mg/dL POC Glucose (mg/dL) (70-110) mg/dL Plasma Lactic Acid Nabil (0.7-2.0) mmol/L Magnesium (1.6-2.3) mg/dL Total Protein 5.4 L (6.3-8.2) g/dL Albumin 3.0 L (3.5-5.0) g/dL Ur Specific [place] >1.050 H (1.001-1.035) Urine Protein 1+ H (Negative) Urine Ketones 1+ H (Negative) Urine Blood Moderate H (Negative) Urine RBC 105 H (0-5) /hpf Urine WBC 6 H (0-5) /hpf Urine Bacteria Rare H (None) /hpf Hyaline Casts (0-2) /lpf Urine Mucus Rare H (None) /hpf 02/21/23 Range/Units 06:22 WBC (3.8-10.6) k/uL RBC (4.30-5.90) m/uL Hgb (13.0-17.5) gm/dL Hct (39.0-53.0) % MCV (80.0-100.0) fL MCHC (31.0-37.0) g/dL Neutrophils # (1.3-7.7) k/uL Lymphocytes # (1.0-4.8) k/uL ABG pCO2 51 H (35-45) mmHg ABG pO2 150 H (83-108) mmHg ABG HCO3 33 H (21-25) mmol/L ABG Total CO2 34 H (19-24) mmol/L ABG O2 Saturation 99.2 H (94-97) % Chloride (98-107) mmol/L Carbon Dioxide (22-30) mmol/L BUN (9-20) mg/dL Glucose (74-99) mg/dL POC Glucose (mg/dL) (70-110) mg/dL Plasma Lactic Acid Nabil (0.7-2.0) mmol/L Magnesium (1.6-2.3) mg/dL Total Protein (6.3-8.2) g/dL Albumin (3.5-5.0) g/dL Ur Specific [place] (1.001-1.035) Urine Protein (Negative) Urine Ketones (Negative) Urine Blood (Negative) Urine RBC (0-5) /hpf Urine WBC (0-5) /hpf Urine Bacteria (None) /hpf Hyaline Casts (0-2) /lpf Urine Mucus (None) /hpf
[2023-02-21] MEDS ORDERED: DEXTROSE 50% SYRINGE 50 ML IVP ONE (12:40)
[2023-02-21 12:42] LABS: Glucose,Whole Blood 90 mg/dL (70-110)
--- NOTE | 2023-02-21 12:56 | CA ---
Transthoracic Echo Report Name: Murphy Davidson Age: 82 Gender: M : 1940 Exam Date: 02/21/2023 09:24 Exam Location: [facility] Ht (in): 70 Wt (lb): 119 Ordering Physician: Gary Parekh Attending/Referring Phys: Clock And Watch Assembler Adriel Cunningham Procedure CPT: Indications: evaluate LV function; post cardiac arrest Cardiac Hx: Technical Quality: Technically difficult study Contrast 1: Total Dose (mL): Contrast 2: Total Dose (mL): MEASUREMENTS (Male / Female) Normal Values 2D ECHO LVOT Diameter 1.9 cm Aortic Root Diameter 3.9 cm LA Systolic Diameter LX 3.0 cm 3.0 - 4.0 / 2.7 - 3.8 cm LV Diastolic Volume MOD 4C 41.7 cm??? LV Systolic Volume MOD 4C 19.5 cm??? LV Ejection Fraction MOD 4C 53.3 % LV Diastolic Length 4C 7.1 cm LV Systolic Length 4C 5.8 cm DOPPLER LVOT Peak Velocity 60.8 cm/s LVOT Peak Gradient 1.5 mmHg MV Peak Velocity 72.0 cm/s MV Peak Gradient 2.1 mmHg MV Mean Velocity 36.1 cm/s MV Mean Gradient 0.7 mmHg MV Velocity Time Integral 18.0 cm MR Peak Velocity 333.6 cm/s MR Peak Gradient 44.5 mmHg Mitral E Point Velocity 63.8 cm/s Mitral A Point Velocity 29.8 cm/s Mitral E to A Ratio 2.1 MV Deceleration Time 127.9 ms TR Peak Velocity 320.5 cm/s TR Peak Gradient 41.1 mmHg Right Ventricular Systolic Press 46.2 mmHg PV Peak Velocity 75.8 cm/s PV Peak Gradient 2.3 mmHg FINDINGS Left Ventricle Normal LV size. Mild concentric LVH. Left ventricular ejection fraction is estimated at _35-40 %. Right Ventricle Normal right ventricular size. RVSP= 51mmhg Right Atrium Mild right atrial dilatation. Left Atrium Mildly increased left atrial area. Mitral Valve Mitral valve thickened. Mild MR. Aortic Valve Aortic valve not well visualized. No aortic regurgitation. No aortic regurgitation. Tricuspid Valve Structurally normal tricuspid valve. Moderate TR. Pulmonic Valve Pulmonic valve not well visualized. No pulmonic regurgitation. Pericardium Normal pericardium. Aorta Aorta at upper limits of normal. CONCLUSIONS Technically suboptimal study with poor echo windows and off axis images Moderate LV systolic dysfunction with an ejection fraction of 35-40% Moderate tricuspid regurgitation Moderate pulmonary hypertension Previewed by: Dr. Rusty Celeste MD (Electronically Signed) Final Date: 21 February 2023 12:56
[2023-02-21 14:31] LABS: Glucose,Whole Blood 100 mg/dL (70-110)
--- NOTE | 2023-02-21 16:11 | XR ---
EXAMINATION TYPE: XR chest 1V portable DATE OF EXAM: 02/21/2023 3:54 PM COMPARISON: Chest radiographs from same day TECHNIQUE: XR chest 1V portable Frontal view of the chest. CLINICAL INDICATION:Male, 82 years old with history of NG tube placement; FINDINGS: Lungs/Pleura: Demonstration of right pneumothorax with increasing size. There is no evidence of pleur al effusion, focal consolidation, or left pneumothorax. Pulmonary vascularity: Unremarkable. Heart/mediastinum: Cardiomediastinal silhouette is unremarkable. Musculoskeletal: No acute osseous pathology. Other findings: None Lines/Tubes: Endotracheal tube with distal tip 7.4 cm above the saeid. Nasogastric tube with side-port projecting over the distal esophagus. Right thoracotomy tube is present with increased right pneumothorax compared to prior.. IMPRESSION: 1. Increasing in size of the right pneumothorax. 2. Nasogastric tube remains in the mid esophagus. Advancement of at least 15 cm recommended. 3. Endotracheal tube 7.4 cm above the saeid.
[2023-02-21 17:31] LABS: % Iron Saturation 11.48 (15.00-50.00)
[2023-02-21 18:13] LABS: Glucose,Whole Blood 87 mg/dL (70-110)
[2023-02-21] MEDS ORDERED: ATORVASTATIN 10 MG TAB PO SCH (21:00)
[2023-02-21] MEDS: ATORVASTATIN 20 MG TAB PO SCH (21:50)
[2023-02-21 22:50] LABS: Glucose,Whole Blood 141 mg/dL (70-110)
[2023-02-22 00:09] LABS: Glucose,Whole Blood 117 mg/dL (70-110)
[2023-02-22] MEDS: IPRATROPIUM-ALBUTEROL 3 ML NEB INHALATION SCH ×7 (00:16→23:56)
[2023-02-22] MEDS: methylPREDNISolone SOD SUCCI 40 MG/ML 1 ML VIAL IV SCH ×4 (00:25→17:38)
--- NOTE | 2023-02-22 00:37 | XR ---
EXAM: XR Chest, 1 View CLINICAL HISTORY: ITS.REASON XR Reason: confirm OG placement TECHNIQUE: Frontal view of the chest. COMPARISON: 3:34 PM. FINDINGS: Lungs: Unremarkable. No consolidation. Pleural space: Stable, moderate RIGHT pneumothorax, when compared to 3: 34 PM. RIGHT chest tube. Small LEFT pleural effusion, unchanged. Heart: Cardiomegaly. Mediastinum: Unremarkable. Bones/joints: Unremarkable. Vasculature: Calcified aorta. Tubes, lines and devices: Stable lines and tubes. Pacemaker/AICD. IMPRESSION: Stable, moderate RIGHT pneumothorax, when compared to 3:34 PM. RIGHT chest tube.
[2023-02-22] MEDS: PIPERACILLIN-TAZOBACTAM 3.375 GM in SODIUM CHLORIDE 0.9% 100 ML IVPB SCH ×3 (02:05→17:38)
[2023-02-22 05:59] LABS: Glucose,Whole Blood 109 mg/dL (70-110)
[2023-02-22 06:04] LABS: ABG Base Excess 5.3 mmol/L; ABG HCO3 30 mmol/L (21-25); ABG Oxygen Saturation 98.8 % (94-97); ABG PCO2 45 mmHg (35-45); ABG PH 7.42 (7.35-7.45); ABG PO2 129 mmHg (83-108); ABG TCO2 31 mmol/L (19-24)
[2023-02-22 06:27] LABS: Basophils % (A) 0 %; Eosinophils % (A) 0 %; HCT 32.5 % (39.0-53.0); HGB 10.3 gm/dL (13.0-17.5); Hypochromasia Moderate; Lymphocytes # (A) 0.1 k/uL (1.0-4.8); Lymphocytes % (A) 1 %; MCH 32.6 pg (25.0-35.0); MCHC 31.7 g/dL (31.0-37.0); Macrocytosis Slight; Mean Platelet Volume 9.8; Monocytes # (A) 0.4 k/uL (0-1.0); Monocytes % (A) 3 %; Neutrophils # (A) 11.7 k/uL (1.3-7.7); Neutrophils % (A) 96 %; Platelet Count 172 k/uL (150-450); RBC 3.16 m/uL (4.30-5.90); WBC 12.3 k/uL (3.8-10.6)
[2023-02-22 06:41] LABS: African American GFR (CKD) 75 (>60 ml/min/1.73 sqM); Anion Gap 9 mmol/L; Blood Urea Nitrogen 58 mg/dL (9-20); Calcium 8.9 mg/dL (8.4-10.2); Carbon Dioxide 28 mmol/L (22-30); Chloride 107 mmol/L (98-107); Glucose 134 mg/dL (74-99); Non-African American GFR(CKD) 65 (>60 ml/min/1.73 sqM); Sodium 144 mmol/L (137-145)
--- NOTE | 2023-02-22 08:13 | XR ---
EXAMINATION TYPE: XR chest 1V portable DATE OF EXAM: 02/22/2023 Comparison: 02/21/2023 Clinical History: 82-year-old male Tube placement Findings: Extensive subcutaneous emphysema on both sides of the chest. Right-sided chest tube remains in place. Ongoing moderate to large right-sided pneumothorax measuring up to 8.6 cm superiorly and 6.6 cm at t he peripheral base. Small bilateral pleural effusions are present. Background hyperinflation. Left an terior chest wall AICD generator with right ventricular lead. NG tube courses below the diaphragm. ET tube is in place. Impression: 1. Right-sided chest tube in place with ongoing moderate to large sized pneumothorax measuring up to 8.6 cm at the upper lung and 6.6 cm at the base. 2. Ongoing extensive bilateral subcutaneous emphysema. 3. Background COPD with small bilateral pleural effusions.
--- NOTE | 2023-02-22 08:28 | P.PN ---
Subjective Progress Note Date: 02/22/23 I am seeing this patient in new consultation today 02/21/2023 in the emergency room post PEA cardiac arrest. Patient is a 82-year-old white male with past medical history significant for atrial fibrillation, congestive heart failure status post AICD, hypertension, COPD, BPH. Patient has followed-up in the past with Dr. Farah, but has not had any recent office visits. Patient is known to have severe emphysema with an FEV1 44% of predicted and reduced DLCO on PFT from 2017. Apparently, the patient was in some respiratory distress yesterday morning, and EMS was called. In route, he did reportedly have a PEA cardiac arrest with approximately 1 minute downtime. The patient was unresponsive and intubated in the emergency room. Initial chest x-ray showed endotracheal tube 6.4 cm above the saeid, an NG tube within the distal esophagus, bilateral pleural effusions, left basilar airspace opacity concerning for developing pneumonia, and a masslike area near the right perihilar region. The patient was hypotensive and tachycardic. A follow-up chest CT did show development of a moderate size right pneumothorax. A right ThoraVent was placed in the emergency room, without initial resolution of pneumothorax. A right thoracotomy tube was then placed with reduction in the patient's right-sided pneumothorax to less than 20%. The endotracheal tracheal tube was also adjusted, and is currently 4.8 cm above the saeid. Patient is currently intubated, and synchronous with the mechanical ventilator. No ABG was initially obtained, and I did place a right radial arterial line. Current ventilator settings are assist control, respiratory rate 20, tidal volume 350, FiO2 100%, and PEEP of 5. ABG on these settings show a pO2 greater than 400, pCO2 of 53, pH 7.42. The FiO2 will be titrated accordingly. Chest tube is to suction, and there is an intermittent air leak. Peak pressure is 28 and plateau pressure 13. Blood pressure is now hypertensive, and norepinephrine is infusing at 0.05 mcg/kg/m through a femoral central venous catheter. Norepinephrine will likely be titrated off. Heart rh ythm was atrial fibrillation with rapid ventricular rate, currently atrial fibrillation with a heart rate of 70 bpm. Propofol is infusing at 40 mcg/kg/m. The patient is sedated and synchronous with the ventilator. CBC on arrival shows evidence count of 11.7, hemoglobin 8.5, hematocrit 28.3, platelets 198. BMP on arrival shows sodium 143, potassium 5, chloride 96, serum bicarbonate 39, BUN 49, creatinine 0.84, glucose 180. No IV maintenance fluids infusing. No Archuleta catheter for accurate intake and output. Lactic acid was elevated at 3.7, and is trending down currently 2.7. Troponins less than 0.012. NT proBNP was elevated at 3400. Urinalysis was unremarkable for UTI. Negative for COVID-19. Patient has received doses of azithromycin and Rocephin. He is afebrile. Patient will be admitted to the intensive care unit once bed available. On today's evaluation of 02/22/2023, the patient is being seen for a follow-up. As mentioned, the patient is post PEA cardiac arrest along with a right-sided pneumothorax. As mentioned, the patient had a thoravent inserted with subsequent a right-sided chest tube and he had adequate expansion of the right lung. On yesterday's evaluation, and without removing the thoravent as I thought that the chest tube itself should be adequate in maintaining his lung expansion. However, after removal of the thoravent the patient developed a righ t-sided pneumothorax and he continued to have persistent air leak through the regular chest tube. The chest tube was minute related. Morning chest x-ray revealed that the patient has a at least 50% pneumothorax on the right. The chest tube is in a good location. Has developed some subcu emphysema. He does have persistent and ongoing care leak through the right-sided chest tube and the thoravent hole is also leaking. While on a mechanical ventilator, the patient is losing approximately 75 mL of air. The ventilator settings with an assist control of 20, tidal volume of 350, FiO2 of 60% with a PEEP of 5. The returning tidal volume is 275. His peak air pressures 26. Blood gas today shows a pH of 7.42 with a pCO2 of 45 and pO2 of 129. The patient's WBC count of 12.3 with a hemoglobin 10.3 and a platelet count of 172. BUN is 58 with a creatinine of 1.06 and sodium levels of 144. The preliminary blood cultures showed gram- positive cocci in clusters. The sputum sample also showed many gram-positive cocci. The patient currently is on IV Zosyn as an empiric antibiotic coverage. The patient remains on propofol for sedation which is running at 45 mcg/kg/m. The patient on bronchodilators. The patient is on steroids. His cardiac rhythm is A. fib and the rate is controlled and the patient is taken metoprolol 25 mg twice a day and he is also 90 cognition with Eliquis 2.5 mg by mouth twice a day. Note that his white cell count was done elevated. Lactic acid level is normalized down to 1.4. Covid 19 testing was negative. Legionella urine antigen has been also negative. Echocardiogram was completed yesterday and the patient was found to have moderate LV systolic dysfunction with an ejection fraction of 35-40%. Moderate tricuspid regurgitation and moderate pulmonary hypertension. No other significant abnormalities noted on the echocardiogram. Neurologically, the patient has no seizure activity. He does grimace to painful stimulation and he does withdrawal. We are going to give him a sedation holiday today and assess his underlying neurologic status. Note that since admission, computed tomography scan of the brain has not been done post cardiac arrest. Objective - Vital Signs Vital signs: Vital Signs Temp 98.0 F 02/22/23 04:00 Pulse 88 02/22/23 07:00 Resp 20 02/22/23 07:00 BP 152/100 02/22/23 07:00 Pulse Ox 97 02/22/23 07:00 FiO2 60 02/22/23 04:00 Intake & Output 02/21/23 02/22/23 02/22/23 18:59 06:59 18:59 Intake Total 1035.381 836.616 78 Output Total 580 435 35 Balance 455.381 401.616 43 Weight 53.977 kg 55.6 kg Intake: IV 908 661 78 Art Line 33 36 3 Piperacillin-Tazobactam 3 200 100 .375 gm In Sodium Chloride 0.9% 100 ml @ 25 mls/hr IVPB Q8H [facility] Rx#: [id number] Sodium Chloride 0.9% 1, 675 525 75 000 ml @ 75 mls/hr IV . [id number] [facility] Rx#:[id number] Intake, IV Titration 127.381 175.616 Amount propofoL 1,000 mg In 127.381 175.616 Empty Bag 1 bag @ 15 MCG/ KG/MIN 4.858 mls/hr IV . [id number] [facility] Rx#:[id number] Output: Chest Tube Drainage 10 Chest Tube Upper Lateral 10 Chest Urine 570 435 35 Other: Voiding Method Indwelling Catheter Indwelling Catheter ABP, PAP, CO, CI - Last Documented Arterial Blood Pressure 153/80 - Exam GENERAL EXAM: Sedated and malnourished 82-year-old male, disheveled appearance and visibly dirty. The patient is currently sedated on propofol, calm and comfortable. HEAD: Normocephalic and atraumatic EYES: Pupils are 1+ bilaterally and equal in size. Sluggish reaction to light. NOSE: Clear with pink turbinates. THROAT: No erythema or exudates. Poor dentition NECK: No masses, no JVD. CHEST: No chest wall deformity. Pectus excavatum. Right-sided thoracotomy tube hole is leaking area. The patient also has a right-sided chest tube and some subcutaneous emphysema and also seen on the right side. Air entry is diminished on the right compared to left. LUNGS: Equal air entry with diffuse rhonchi throughout. Intubated to the mechanical ventilator CVS: S1 and S2 normal with no audible murmur, irregular rhythm. No extra heart sounds. Bedside monitor shows atrial fibrillation with controlled ventricular rate at 70 bpm ABDOMEN: No hepatosplenomegaly, active bowel sounds, no guarding or rigidity. SPINE: No scoliosis or deformity SKIN: No rashes CENTRAL NERVOUS SYSTEM: Sedated and only withdraws to painful stimuli. DTRs 1- 2+ throughout. Neutral Babinski, neurologic exam remains unchanged compared to yesterday. EXTREMITIES: There is no peripheral edema, all 4 extremities are dusky in appearance, peripheral pulses are 1+ and intact. - Labs CBC & Chem 7: 02/22/23 06:00 02/22/23 06:00 Labs: Abnormal Lab Results - Last 24 Hours (Table) 02/21/23 02/21/23 02/21/23 Range/Units 04:24 04:24 11:48 WBC (3.8-10.6) k/uL RBC (4.30-5.90) m/uL Hgb (13.0-17.5) gm/dL Hct (39.0-53.0) % MCV (80.0-100.0) fL Neutrophils # (1.3-7.7) k/uL Lymphocytes # (1.0-4.8) k/uL ABG pO2 (83-108) mmHg ABG HCO3 (21-25) mmol/L ABG Total CO2 (19-24) mmol/L ABG O2 Saturation (94-97) % BUN (9-20) mg/dL Glucose (74-99) mg/dL POC Glucose (mg/dL) 68 L (70-110) mg/dL Iron 21 L (65-175) UG/DL TIBC 183 L (228-460) UG/DL % Saturation 11.48 L (15.00-50.00) Transferrin 131.0 L (204.0-354.0) mg/dL Ferritin 698.0 H (22.0-322.0) ng/mL Procalcitonin 0.24 H (0.02-0.09) ng/mL 02/21/23 02/22/23 02/22/23 Range/Units 22:49 00:07 05:46 WBC (3.8-10.6) k/uL RBC (4.30-5.90) m/uL Hgb (13.0-17.5) gm/dL Hct (39.0-53.0) % MCV (80.0-100.0) fL Neutrophils # (1.3-7.7) k/uL Lymphocytes # (1.0-4.8) k/uL ABG pO2 129 H (83-108) mmHg ABG HCO3 30 H (21-25) mmol/L ABG Total CO2 31 H (19-24) mmol/L ABG O2 Saturation 98.8 H (94-97) % BUN (9-20) mg/dL Glucose (74-99) mg/dL POC Glucose (mg/dL) 141 H 117 H (70-110) mg/dL Iron (65-175) UG/DL TIBC (228-460) UG/DL % Saturation (15.00-50.00) Transferrin (204.0-354.0) mg/dL Ferritin (22.0-322.0) ng/mL Procalcitonin (0.02-0.09) ng/mL 02/22/23 02/22/23 Range/Units 06:00 06:00 WBC 12.3 H (3.8-10.6) k/uL RBC 3.16 L (4.30-5.90) m/uL Hgb 10.3 L (13.0-17.5) gm/dL Hct 32.5 L (39.0-53.0) % MCV 103.0 H (80.0-100.0) fL Neutrophils # 11.7 H (1.3-7.7) k/uL Lymphocytes # 0.1 L (1.0-4.8) k/uL ABG pO2 (83-108) mmHg ABG HCO3 (21-25) mmol/L ABG Total CO2 (19-24) mmol/L ABG O2 Saturation (94-97) % BUN 58 H (9-20) mg/dL Glucose 134 H (74-99) mg/dL POC Glucose (mg/dL) (70-110) mg/dL Iron (65-175) UG/DL TIBC (228-460) UG/DL % Saturation (15.00-50.00) Transferrin (204.0-354.0) mg/dL Ferritin (22.0-322.0) ng/mL Procalcitonin (0.02-0.09) ng/mL Microbiology - Last 24 Hours (Table) 02/20/23 13:35 Blood Culture Gram Stain - Preliminary Blood 02/20/23 13:50 Blood Culture Gram Stain - Preliminary Blood 02/20/23 12:59 Gram Stain - Preliminary Sputum Assessment and Plan Assessment: PEA cardiac arrest status post CPR and return of spontaneous circulation. Estimated down time was 1 minute. Patient was unresponsive on arrival, and ultimately intubated for airway protection. Follow-up chest CT did show dev elopment of a moderate to large sized right pneumothorax. Initial ThoraVent placement was not effective. The patient did require placement of a right thoracotomy tube, follow-up chest x-ray showed improvement of the right-sided pneumothorax. Subsequently, the thoravent was removed and the patient continued to have a persistent pneumothorax on the right along with a persistent air leak on the regular chest tube had been inserted already. Morning chest x-ray is showing a 50% pneumothorax on the right. The patient is still losing volumes in the order of 75 mL with each breath on a mechanical ventilator and this is related to the persistent air leak. Decided to put the thoravent again to m onitor the air leak and improve the right-sided pneumothorax. Despite ongoing pneumothorax, the patient's oxygenation is stable and he has adequate ventilation. He is also hemodynamic is stable. No evidence of any tension. Moderate right-sided pneumothorax, status post ThoraVent and then right t horacotomy tube placement. Suspected left lower lobe pneumonia, possibly aspiration, and septic shock. Initial hypotension has resolved after fluid resuscitation and chest tube placement. Patient is on no pressors for now COPD exacerbation, secondary to above. Patient has known severe emphysema with an FEV1 44% of predicted, partially reversible, and reduced DLCO on PFT from 2017 Acute on chronic hypoxemic and hypercapnic respiratory failure, currently on mechanical ventilator. Atrial fibrillation with controlled rate and the patient is on beta blockers with metoprolol and Eliquis. Systolic heart failure with ejection fraction of 35-40%, seems to be compensated for now Anemia, no obvious acute blood loss Lactic acidemia, improving, and the lactic acid level is normalized Right middle lobe pulmonary nodule measuring 7 mm, recommended follow-up in 3-6 months History of nonischemic cardiomyopathy with an EF of 20-25%, estimated on most recently available echocardiogram done on September,. Status post implantation of AICD Hyperlipidemia Benign essential hypertension BPH Gram-positive cocci in the blood, likely a contaminant, would like to repeat blood cultures Plan: Persistent pneumothorax on the right Persistent air leak through the chest tube Persistent leak through the thoravent insertion hole The plan is to be inserted thora vent, monitor air leak Monitor the right-sided pneumothorax Repeat blood cultures Continue IV Zosyn Patient is currently on a combination of bronchodilators, budesonide, formoterol, and IV Solu-Medrol Patient is currently hypertensive, and will likely be able to be weaned off Levophed Continue propofol for sedation, and give the patient has sedation holiday after his pulmonary status is further stabilized Initiate enteral feeding for nutritional support Heparin for DVT prophylaxis Protonix for GI prophylaxis Patient's condition is currently critical, and he is a full code. I did speak to the patient's POA and daughter, and they would like to continue with current treatment at this time. Prognosis is guarded due to above mentioned comorbidities. Patient will be admitted to the intensive care unit once bed available. critical care evaluation done in > 30 min. Time with Patient: Greater than 30
--- NOTE | 2023-02-22 08:40 | P.PCN ---
Date of Procedure: 02/22/23 Preoperative Diagnosis: Right-sided pneumothorax, persistent Postoperative Diagnosis: Same Procedure(s) Performed: thoravent insertion, right sided Anesthesia: local Surgeon: Almas Eduardo Electrotype Molder #1: Christian Sims Pathology: none sent Condition: critical Disposition: ICU Operative Findings: This procedure was done in the intensive care unit. The patient persistent pneumothorax and air leak. Based on that, a thoravent on the right side was inserted. The procedure was done under local anesthesia. The intercostal space over the right anterior chest at the level of the second and third rib was identified. The skin was infiltrated using lidocaine. Using the same thoravent hole, a 13-Polish catheter was inserted over a trocar. The thoravent was connected to a low suction and ongoing air leak was identified. The tube was secured in place over the right anterior chest. No complications. We'll continue to follow and repeat chest x-ray within an hour.
[2023-02-22] MEDS: HYDROmorphone 0.5 MG/0.5 ML SYRINGE IVP PRN ×3 (09:03→17:38)
[2023-02-22] MEDS: BUDESONIDE 1 MG/2 ML NEBU INHALATION SCH ×2 (09:08→19:39)
[2023-02-22] MEDS: FORMOTEROL FUMARATE 20 MCG/2 ML NEBU INHALATION SCH ×2 (09:08→19:39)
[2023-02-22] MEDS: PANTOPRAZOLE 40 MG/10 ML VIAL IV SCH (09:24)
[2023-02-22] MEDS: CHLORHEXIDINE GLUCONATE 15 ML CUP MUCOUS MEM SCH ×2 (09:24→20:49)
[2023-02-22] MEDS: METOPROLOL TARTRATE 25 MG TAB PO SCH ×2 (09:25→20:49)
[2023-02-22] MEDS: APIXABAN 2.5 MG TABLET PO SCH ×2 (09:25→20:49)
--- NOTE | 2023-02-22 09:27 | XR ---
EXAMINATION TYPE: XR chest 1V portable DATE OF EXAM: 02/22/2023 9:16 AM COMPARISON: Chest radiographs from same day TECHNIQUE: XR chest 1V portable Frontal view of the chest. CLINICAL INDICATION:Male, 82 years old with history of thoravent placement; FINDINGS: Lines/Tubes: Interval placement of right upper anterior chest tube with decrease in pneumothorax. There remains in pneumothorax present. The remainder of exam is unchanged from prior. IMPRESSION: Interval reduction of right pneumothorax with second thoracotomy tube. Extensive subcutaneous emphyse ma is present.
--- NOTE | 2023-02-22 12:07 | P.PN ---
Subjective Progress Note Date: 02/22/23 PROGRESS NOTE The patient is an 82-year-old male with a known history of severe nonischemic cardiomyopathy, post cardiac catheterization in 2013, chronic persistent atrial fibrillation, status post ICD implantation and severe COPD who presented with symptoms of progressive dyspnea in route to the hospital he had PEA cardiac arrest underwent CPR was intubated and was found to have evidence of moderate ri ght sided pneumothorax. He underwent placement of ThoraVent and chest tube.. He was in atrial fibrillation. Initially he was on vasopressors was subsequently stopped. Patient has a known history of significant COPD with FEV1 of 44%. He is sedated, intubated, in atrial fibrillation. His ventricular rate is controlled. His blood pressure is stable and his urinary output is stable. On presentation his troponin was normal and his NT proBNP was 3400. His plasma lactic acid was elevated. He had no evidence of ventricular ectopic activity. It is unclear when he was evaluated in the office last time. February 22 The patient remains intubated, he continues to have the from has chest tube was persistent pneumothorax. He has placement of another 2. He continues to be in atrial fibrillation with controlled ventricular response. The patient has a known history of severe COPD. He has a known history of cardiomyopathy. He had an echocardiogram that showed an ejection fraction of 35-40% with moderate pulmonary hypertension and moderate tricuspid regurgitation. The study was suboptimal. Medications: Metoprolol 25 mg twice a, Lipitor 20 mg daily, Eliquis 2.5 mg twice a day, Solu-Medrol, PHYSICAL EXAMINATION: Blood pressure 144/70 heart rate 90, intubated and sedated LUNGS: Decreased air exchange, chest tube in place, subcutaneous emphysema HEART: Irregular rate and rhythm, S1, S2. No S3. Systolic Ejection murmur, ICD in the left subclavian area ABDOMEN: Soft, positive bowel sounds, no organomegaly EXTREMETIES: No edema LAB: Hemoglobin 10.3, WBC 12.3, pH 7.42, potassium 4.0, BUN 58, creatinine 1.06. IMPRESSION: 1. Cardiac arrest with recurrent PEA 2. Respiratory failure with spontaneous right sided thorax 3. Chronic persistent atrial fibrillation, anticoagulated 4. Nonischemic cardiomyopathy, post ICD 5. Positive culture, rule out contaminant PLAN: 1. Continue anticoagulation 2. Continue beta ann marie 3. Management of pneumothorax by pulmonary 4. Prognosis is guarded Objective - Vital Signs Vital signs: Vital Signs Temp 97.4 F L 02/22/23 08:00 Pulse 70 02/22/23 11:00 Resp 21 02/22/23 11:00 BP 141/85 02/22/23 11:00 Pulse Ox 99 02/22/23 11:00 FiO2 60 02/22/23 09:11 Intake & Output 02/21/23 02/22/23 02/22/23 18:59 06:59 18:59 Intake Total 1035.381 836.616 507.413 Output Total 580 435 175 Balance 455.381 401.616 332.413 Weight 53.977 kg 55.6 kg Intake: IV 908 661 378 Art Line 33 36 3 Piperacillin-Tazobactam 3 200 100 .375 gm In Sodium Chloride 0.9% 100 ml @ 25 mls/hr IVPB Q8H [facility] Rx#: [id number] Sodium Chloride 0.9% 1, 675 525 375 000 ml @ 75 mls/hr IV . [id number] [facility] Rx#:[id number] Intake, IV Titration 127.381 175.616 89.413 Amount propofoL 1,000 mg In 127.381 175.616 89.413 Empty Bag 1 bag @ 15 MCG/ KG/MIN 4.858 mls/hr IV . [id number] [facility] Rx#:[id number] Tube Feeding 40 Output: Chest Tube Drainage 10 Chest Tube Upper Lateral 10 Chest Urine 570 435 175 Other: Voiding Method Indwelling Catheter Indwelling Catheter Indwelling Catheter ABP, PAP, CO, CI - Last Documented Arterial Blood Pressure 155/75 - Labs CBC & Chem 7: 02/22/23 06:00 02/22/23 06:00 Labs: Abnormal Lab Results - Last 24 Hours (Table) 02/21/23 02/21/23 02/22/23 Range/Units 04:24 22:49 00:07 WBC (3.8-10.6) k/uL RBC (4.30-5.90) m/uL Hgb (13.0-17.5) gm/dL Hct (39.0-53.0) % MCV (80.0-100.0) fL Neutrophils # (1.3-7.7) k/uL Lymphocytes # (1.0-4.8) k/uL ABG pO2 (83-108) mmHg ABG HCO3 (21-25) mmol/L ABG Total CO2 (19-24) mmol/L ABG O2 Saturation (94-97) % BUN (9-20) mg/dL Glucose (74-99) mg/dL POC Glucose (mg/dL) 141 H 117 H (70-110) mg/dL Iron 21 L (65-175) UG/DL TIBC 183 L (228-460) UG/DL % Saturation 11.48 L (15.00-50.00) Transferrin 131.0 L (204.0-354.0) mg/dL Ferritin 698.0 H (22.0-322.0) ng/mL 02/22/23 02/22/23 02/22/23 Range/Units 05:46 06:00 06:00 WBC 12.3 H (3.8-10.6) k/uL RBC 3.16 L (4.30-5.90) m/uL Hgb 10.3 L (13.0-17.5) gm/dL Hct 32.5 L (39.0-53.0) % MCV 103.0 H (80.0-100.0) fL Neutrophils # 11.7 H (1.3-7.7) k/uL Lymphocytes # 0.1 L (1.0-4.8) k/uL ABG pO2 129 H (83-108) mmHg ABG HCO3 30 H (21-25) mmol/L ABG Total CO2 31 H (19-24) mmol/L ABG O2 Saturation 98.8 H (94-97) % BUN 58 H (9-20) mg/dL Glucose 134 H (74-99) mg/dL POC Glucose (mg/dL) (70-110) mg/dL Iron (65-175) UG/DL TIBC (228-460) UG/DL % Saturation (15.00-50.00) Transferrin (204.0-354.0) mg/dL Ferritin (22.0-322.0) ng/mL Microbiology - Last 24 Hours (Table) 02/20/23 13:35 Blood Culture Gram Stain - Preliminary Blood Blood Culture - Preliminary Coagulase Negative Staph 02/20/23 12:59 Gram Stain - Final Sputum Sputum Culture - Final 02/20/23 13:50 Blood Culture Gram Stain - Preliminary Blood
[2023-02-22 12:15] LABS: Glucose,Whole Blood 158 mg/dL (70-110)
[2023-02-22] MEDS ORDERED: DEXTROSE 50% SYRINGE 50 ML IVP PRN ×2 (12:39)
[2023-02-22] MEDS: INSULIN ASPART (NovoLOG) 100 UNIT/ML VIAL SQ SCH ×2 (13:20→17:51)
[2023-02-22] MEDS: SODIUM CHLORIDE 0.9% 1,000 ML IV SCH (15:02)
--- NOTE | 2023-02-22 16:03 | P.PN ---
Subjective Progress Note Date: 02/22/23 Patient is an 82-year-old male with atrial fibrillation, systolic congestive heart failure, COPD, hypertension, and prior AICD implantation who presented to the ER in severe respiratory distress. Patient had an out of hospital PEA arrest with CPR delivered by EMS for approximately 1 minute. On arrival there vital signs were significantly abnormal with a pulse of 144, respiratory rate of 10, and O2 sat of 84% on room air. He was emergently intubated. Initial chest x-ray showed right-sided pneumothorax. Initial EKG showed atrial fibrillation with rapid ventricular response. CT chest was completed which showed moderate right-sided pneumothorax, nasogastric tube in the esophagus, left long infectious or inflammatory process, right middle lobe pulmonary nodule, severe emphysematous changes, severe atherosclerosis, and colonic diverticulosis. Patient had a right-sided thoravent placed and then a chest tube. Initial laboratory analysis was remarkable for white blood cell count 11.7, hemoglobin 8.5, BUN 49, lactic acid 2.1, blood sugar 190. COVID-19 testing was negative. BNP was elevated at 3400. Initial troponin was negative at 0.012. Patient was started on bronchodilators, Zosyn, and was subsequently admitted to the ICU. He did require levophed for less than 24 hours. Critical care was consulted. Cardiology was consulted for A. fib. Patient had worsening of their pneumothorax after removal of the thoravent. Thoravent was replaced into the right chest cavity on the morning of 02/22/23. Echocardiogram ejection fraction 35-40%, moderate pulmonary hypertension, moderate tricuspid regurgitation Patient seen and examined at bedside. He remains sedated on the ventilator. Per nursing Vale attempted to wean sedation he appeared painful and was moving extremities but not following commands. Vital signs reviewed Vital signs reviewed General: Ill-appearing, cachectic with temporal and buccal wasting Derm: darkened area over lower chest wall. Cardiovascular: S1S2 reg, no murmur, positive posterior tibial pulse bilateral, Lungs: Decreased bs right with crepitus over chest wall, no rhonchi, no rales , no accessory muscle use, on vent Abdominal: soft, nontender to palpation, no guarding, no appreciable organomegaly Ext: + gross muscle atrophy, no edema b/l lower extremities, no contractures Neuro: Breathing over vent, + cough, + gag Psych: Sedated on vent Assessment/Plan: Right-sided pneumothorax status post thorvent and Chest tube on 02/20/23, thoravent removed on 02/21. Acute exacerbation of COPD Possible left-sided pneumonia with septic shock Acute on chronic hypoxic respiratory failure Coag ag negative staph in Blood culture like contaminant -Zosyn 3.375 g IV every 8 hours D # 3 -Continue normal saline decreased to NS at 75 cc/hr -Continue with scheduled and when necessary DuoNeb, Pulmicort, and puriform minutes -Pulmonary note reviewed: Blood culture likely contaminants, repeat blood cultures, continue Zosyn Atrial fibrillation Status post PEA arrest Compensated systolic congestive heart failure, last known EF 40-45% -Cardiology note reviewed: Continue with beta ann marie and anticoagulation -Metoprolol 25 mg by mouth twice daily -Eliquis 2.5 mg twice daily has been restarted -Lasix on hold secondary to requiring fluid resuscitation -Lipitor 10 mg at nightly Anemia, suspect due to chronic disease -Follow CBC Chronic: Hypertension Prior myocardial infarction BPH Chronic O2 dependency at 3 L Back pain Imaging: Initial chest x-ray reviewed from 350 4 in the morning shows continued worsening right sided pneumothorax with chest tube in place it appears that the area last fenestration is within the chest cavity. Poor event was replaced and re-peaked chest x-ray reviewed which shows resolution of the pneumothorax on the right as well as the chest tube in appropriate position and poor event in place Echocardiogram ejection fraction 35-40%, moderate pulmonary hypertension, moderate tricuspid regurgitation Data Review: Vital signs reviewed pulse 66, respirations 22, blood pressure 148/75, O2 sat 99% on 60% vent Labs reviewed remarkable for white blood cell count 12.3, hemoglobin 10.3, BUN 56, blood sugar 158, pro calcitonin 0.24, iron 21, TIBC 183, percent sat 11.48, transferrin 698 Discussed with daughter at length. At this time she would like to continue a full CODE STATUS, after she arrives tomorrow from [place] she will consider a no CODE STATUS. She does not think her father would want to be kept alive on machines and tubes for a long period of time. She will discuss this with her brother's and his POA Charlotte who works in conjunction with the daughter. DVT prophylaxis: SCDs Anticipated discharge date: Pending Clinical Course Anticipated discharge place: Pending Clinical Course This dictation was prepared using [employer] voice recognition software. Though every attempt is made to correct errors during dictation some may still exist. Objective - Vital Signs Vital signs: Vital Signs Temp 97.6 F 02/22/23 12:00 Pulse 78 02/22/23 15:00 Resp 20 02/22/23 15:00 BP 134/85 02/22/23 15:00 Pulse Ox 100 02/22/23 15:00 FiO2 60 02/22/23 12:03 Intake & Output 02/21/23 02/22/23 02/22/23 18:59 06:59 18:59 Intake Total 1035.381 836.616 995.438 Output Total 580 435 395 Balance 455.381 401.616 600.438 Weight 53.977 kg 55.6 kg Intake: IV 908 661 778 Art Line 33 36 3 Piperacillin-Tazobactam 3 200 100 100 .375 gm In Sodium Chloride 0.9% 100 ml @ 25 mls/hr IVPB Q8H [facility] Rx#: [id number] Sodium Chloride 0.9% 1, 675 525 675 000 ml @ 75 mls/hr IV . [id number] [facility] Rx#:[id number] Intake, IV Titration 127.381 175.616 147.438 Amount propofoL 1,000 mg In 127.381 175.616 147.438 Empty Bag 1 bag @ 15 MCG/ KG/MIN 4.858 mls/hr IV . [id number] [facility] Rx#:[id number] Tube Feeding 70 Output: Chest Tube Drainage 10 Chest Tube Upper Lateral 10 Chest Urine 570 435 395 Other: Voiding Method Indwelling Catheter Indwelling Catheter Indwelling Catheter ABP, PAP, CO, CI - Last Documented Arterial Blood Pressure 122/64 - Labs CBC & Chem 7: 02/22/23 06:00 02/22/23 06:00 Labs: Abnormal Lab Results - Last 24 Hours (Table) 02/21/23 02/21/23 02/22/23 Range/Units 04:24 22:49 00:07 WBC (3.8-10.6) k/uL RBC (4.30-5.90) m/uL Hgb (13.0-17.5) gm/dL Hct (39.0-53.0) % MCV (80.0-100.0) fL Neutrophils # (1.3-7.7) k/uL Lymphocytes # (1.0-4.8) k/uL ABG pO2 (83-108) mmHg ABG HCO3 (21-25) mmol/L ABG Total CO2 (19-24) mmol/L ABG O2 Saturation (94-97) % BUN (9-20) mg/dL Glucose (74-99) mg/dL POC Glucose (mg/dL) 141 H 117 H (70-110) mg/dL Iron 21 L (65-175) UG/DL TIBC 183 L (228-460) UG/DL % Saturation 11.48 L (15.00-50.00) Transferrin 131.0 L (204.0-354.0) mg/dL Ferritin 698.0 H (22.0-322.0) ng/mL 02/22/23 02/22/23 02/22/23 Range/Units 05:46 06:00 06:00 WBC 12.3 H (3.8-10.6) k/uL RBC 3.16 L (4.30-5.90) m/uL Hgb 10.3 L (13.0-17.5) gm/dL Hct 32.5 L (39.0-53.0) % MCV 103.0 H (80.0-100.0) fL Neutrophils # 11.7 H (1.3-7.7) k/uL Lymphocytes # 0.1 L (1.0-4.8) k/uL ABG pO2 129 H (83-108) mmHg ABG HCO3 30 H (21-25) mmol/L ABG Total CO2 31 H (19-24) mmol/L ABG O2 Saturation 98.8 H (94-97) % BUN 58 H (9-20) mg/dL Glucose 134 H (74-99) mg/dL POC Glucose (mg/dL) (70-110) mg/dL Iron (65-175) UG/DL TIBC (228-460) UG/DL % Saturation (15.00-50.00) Transferrin (204.0-354.0) mg/dL Ferritin (22.0-322.0) ng/mL 02/22/23 Range/Units 12:13 WBC (3.8-10.6) k/uL RBC (4.30-5.90) m/uL Hgb (13.0-17.5) gm/dL Hct (39.0-53.0) % MCV (80.0-100.0) fL Neutrophils # (1.3-7.7) k/uL Lymphocytes # (1.0-4.8) k/uL ABG pO2 (83-108) mmHg ABG HCO3 (21-25) mmol/L ABG Total CO2 (19-24) mmol/L ABG O2 Saturation (94-97) % BUN (9-20) mg/dL Glucose (74-99) mg/dL POC Glucose (mg/dL) 158 H (70-110) mg/dL Iron (65-175) UG/DL TIBC (228-460) UG/DL % Saturation (15.00-50.00) Transferrin (204.0-354.0) mg/dL Ferritin (22.0-322.0) ng/mL Microbiology - Last 24 Hours (Table) 02/20/23 13:35 Blood Culture Gram Stain - Preliminary Blood Blood Culture - Preliminary Coagulase Negative Staph 02/20/23 12:59 Gram Stain - Final Sputum Sputum Culture - Final 02/20/23 13:50 Blood Culture Gram Stain - Preliminary Blood
[2023-02-22 17:59] LABS: Glucose,Whole Blood 144 mg/dL (70-110)
[2023-02-22] MEDS: ATORVASTATIN 20 MG TAB PO SCH (20:49)
[2023-02-22 23:56] LABS: Glucose,Whole Blood 174 mg/dL (70-110)
[2023-02-23] MEDS: HYDROmorphone 0.5 MG/0.5 ML SYRINGE IVP PRN ×7 (00:02→21:38)
[2023-02-23] MEDS: INSULIN ASPART (NovoLOG) 100 UNIT/ML VIAL SQ SCH ×4 (00:02→18:04)
[2023-02-23] MEDS: methylPREDNISolone SOD SUCCI 40 MG/ML 1 ML VIAL IV SCH ×4 (00:02→18:16)
[2023-02-23] MEDS: SODIUM CHLORIDE 0.9% 1,000 ML IV SCH ×2 (00:04→14:09)
[2023-02-23] MEDS: PIPERACILLIN-TAZOBACTAM 3.375 GM in SODIUM CHLORIDE 0.9% 100 ML IVPB SCH ×3 (01:47→18:16)
[2023-02-23] MEDS: IPRATROPIUM-ALBUTEROL 3 ML NEB INHALATION SCH ×5 (04:06→20:00)
[2023-02-23 04:12] LABS: Basophils % (A) 0 %; Eosinophils % (A) 0 %; HCT 30.2 % (39.0-53.0); HGB 9.9 gm/dL (13.0-17.5); Hypochromasia Moderate; Lymphocytes # (A) 0.1 k/uL (1.0-4.8); Lymphocytes % (A) 1 %; MCH 33.7 pg (25.0-35.0); MCHC 32.8 g/dL (31.0-37.0); MCV 102.9 fL (80.0-100.0); Macrocytosis Slight; Mean Platelet Volume 10.9; Monocytes # (A) 0.4 k/uL (0-1.0); Monocytes % (A) 3 %; Neutrophils % (A) 96 %; Platelet Count 132 k/uL (150-450); RBC 2.94 m/uL (4.30-5.90); WBC 12.5 k/uL (3.8-10.6)
[2023-02-23 04:28] LABS: African American GFR (CKD) >90 (>60 ml/min/1.73 sqM); Anion Gap 5 mmol/L; Blood Urea Nitrogen 58 mg/dL (9-20); Calcium 8.4 mg/dL (8.4-10.2); Carbon Dioxide 28 mmol/L (22-30); Chloride 111 mmol/L (98-107); Glucose 161 mg/dL (74-99); Non-African American GFR(CKD) 79 (>60 ml/min/1.73 sqM); Potassium 3.5 mmol/L (3.5-5.1); Sodium 144 mmol/L (137-145)
[2023-02-23] MEDS ORDERED: Potassium Replacement Protocol 1 EACH MISC MISCELLANE PRN (04:40)
[2023-02-23 06:00] LABS: Glucose,Whole Blood 138 mg/dL (70-110)
[2023-02-23] MEDS: POTASSIUM BICARBONATE/CIT AC 20 MEQ TABLET.EFF NG-TUBE SCH ×2 (06:12→06:31)
[2023-02-23 06:21] LABS: ABG Base Excess 3.8 mmol/L; ABG HCO3 29 mmol/L (21-25); ABG Oxygen Saturation 98.6 % (94-97); ABG PCO2 46 mmHg (35-45); ABG PO2 115 mmHg (83-108); ABG TCO2 30 mmol/L (19-24); Allen Test Performed? Yes
--- NOTE | 2023-02-23 07:28 | P.PN ---
Subjective Progress Note Date: 02/23/23 PROGRESS NOTE The patient is an 82-year-old male with a known history of severe nonischemic cardiomyopathy, post cardiac catheterization in 2013, chronic persistent atrial fibrillation, status post ICD implantation and severe COPD who presented with symptoms of progressive dyspnea in route to the hospital he had PEA cardiac arrest underwent CPR was intubated and was found to have evidence of moderate ri ght sided pneumothorax. He underwent placement of ThoraVent and chest tube.. He was in atrial fibrillation. Initially he was on vasopressors was subsequently stopped. Patient has a known history of significant COPD with FEV1 of 44%. He is sedated, intubated, in atrial fibrillation. His ventricular rate is controlled. His blood pressure is stable and his urinary output is stable. On presentation his troponin was normal and his NT proBNP was 3400. His plasma lactic acid was elevated. He had no evidence of ventricular ectopic activity. It is unclear when he was evaluated in the office last time. February 22 The patient remains intubated, he continues to have the from has chest tube was persistent pneumothorax. He has placement of another tube. He continues to be in atrial fibrillation with controlled ventricular response. The patient has a known history of severe COPD. He has a known history of cardiomyopathy. He had an echocardiogram that showed an ejection fraction of 35-40% with moderate pulmonary hypertension and moderate tricuspid regurgitation. The study was suboptimal. February 23: The patient remains intubated and sedated. He is in atrial fibrillation with controlled ventricular response. His heart rate was up slightly earlier but back in the 80s to 90s. He is on no vasopressors. He continues to have air leak through his chest tube. There is no evidence of ventricular ectopic activity. His urine output stable. He underwent placement of a Thoravent yesterday. His chest x-ray shows improvement in his pneumothorax. Medications: Metoprolol 25 mg twice a, Lipitor 20 mg daily, Eliquis 2.5 mg twice a day, Solu- Medrol, PHYSICAL EXAMINATION: Blood pressure 142/90 heart rate 90, intubated and sedated LUNGS: Decreased air exchange, chest tube in place, subcutaneous emphysema HEART: Irregular rate and rhythm, S1, S2. No S3. Systolic Ejection murmur, ICD in the left subclavian area ABDOMEN: Soft, positive bowel sounds, no organomegaly EXTREMETIES: No edema LAB: Hemoglobin 9.9, WBC 12.5, pH 7.4, potassium 4.0, BUN 58, creatinine 0.89. IMPRESSION: 1. Cardiac arrest with recurrent PEA, stable at this time 2. Respiratory failure with spontaneous right sided thorax, intubated 3. Chronic persistent atrial fibrillation, anticoagulated, rate controlled 4. Nonischemic cardiomyopathy, post ICD 5. Positive culture, rule out contaminant PLAN: 1. Continue present cardiac treatment 2. We will see him on as-needed basis, please feel free to call us for any question. Objective - Vital Signs Vital signs: Vital Signs Temp 97.8 F 02/23/23 04:00 Pulse 92 02/23/23 07:00 Resp 20 02/23/23 07:00 BP 142/93 02/23/23 07:00 Pulse Ox 98 02/23/23 07:00 FiO2 40 02/23/23 04:12 Intake & Output 02/22/23 02/23/23 02/23/23 18:59 06:59 18:59 Intake Total 9598.183 9444.948 78 Output Total 625 447 35 Balance 710.438 704.948 43 Weight 57.7 kg Intake: IV 1078 958 78 Art Line 3 33 3 Piperacillin-Tazobactam 3 175 100 .375 gm In Sodium Chloride 0.9% 100 ml @ 25 mls/hr IVPB Q8H [facility] Rx#: [id number] Sodium Chloride 0.9% 1, 900 825 75 000 ml @ 75 mls/hr IV . [id number] [facility] Rx#:[id number] Intake, IV Titration 147.438 173.948 Amount propofoL 1,000 mg In 147.438 173.948 Empty Bag 1 bag @ 15 MCG/ KG/MIN 4.858 mls/hr IV . [id number] [facility] Rx#:[id number] Tube Feeding 110 20 Output: Chest Tube Drainage 37 Chest Tube Upper Lateral 20 Chest Thora-Vent Right Upper 17 Anterior Chest Urine 625 410 35 Other: Voiding Method Indwelling Catheter Indwelling Catheter ABP, PAP, CO, CI - Last Documented Arterial Blood Pressure 137/68 - Labs CBC & Chem 7: 02/23/23 04:00 02/23/23 04:00 Labs: Abnormal Lab Results - Last 24 Hours (Table) 02/22/23 02/22/23 02/22/23 Range/Units 12:13 17:51 23:54 WBC (3.8-10.6) k/uL RBC (4.30-5.90) m/uL Hgb (13.0-17.5) gm/dL Hct (39.0-53.0) % MCV (80.0-100.0) fL Plt Count (150-450) k/uL Neutrophils # (1.3-7.7) k/uL Lymphocytes # (1.0-4.8) k/uL ABG pCO2 (35-45) mmHg ABG pO2 (83-108) mmHg ABG HCO3 (21-25) mmol/L ABG Total CO2 (19-24) mmol/L ABG O2 Saturation (94-97) % Chloride (98-107) mmol/L BUN (9-20) mg/dL Glucose (74-99) mg/dL POC Glucose (mg/dL) 158 H 144 H 174 H (70-110) mg/dL 02/23/23 02/23/23 02/23/23 Range/Units 04:00 04:00 05:58 WBC 12.5 H (3.8-10.6) k/uL RBC 2.94 L (4.30-5.90) m/uL Hgb 9.9 L (13.0-17.5) gm/dL Hct 30.2 L (39.0-53.0) % MCV 102.9 H (80.0-100.0) fL Plt Count 132 L (150-450) k/uL Neutrophils # 12.0 H (1.3-7.7) k/uL Lymphocytes # 0.1 L (1.0-4.8) k/uL ABG pCO2 (35-45) mmHg ABG pO2 (83-108) mmHg ABG HCO3 (21-25) mmol/L ABG Total CO2 (19-24) mmol/L ABG O2 Saturation (94-97) % Chloride 111 H (98-107) mmol/L BUN 58 H (9-20) mg/dL Glucose 161 H (74-99) mg/dL POC Glucose (mg/dL) 138 H (70-110) mg/dL 02/23/23 Range/Units 06:20 WBC (3.8-10.6) k/uL RBC (4.30-5.90) m/uL Hgb (13.0-17.5) gm/dL Hct (39.0-53.0) % MCV (80.0-100.0) fL Plt Count (150-450) k/uL Neutrophils # (1.3-7.7) k/uL Lymphocytes # (1.0-4.8) k/uL ABG pCO2 46 H (35-45) mmHg ABG pO2 115 H (83-108) mmHg ABG HCO3 29 H (21-25) mmol/L ABG Total CO2 30 H (19-24) mmol/L ABG O2 Saturation 98.6 H (94-97) % Chloride (98-107) mmol/L BUN (9-20) mg/dL Glucose (74-99) mg/dL POC Glucose (mg/dL) (70-110) mg/dL Microbiology - Last 24 Hours (Table) 02/20/23 13:35 Blood Culture Gram Stain - Preliminary Blood Blood Culture - Preliminary Coagulase Negative Staph 02/20/23 12:59 Gram Stain - Final Sputum Sputum Culture - Final
[2023-02-23] MEDS: BUDESONIDE 1 MG/2 ML NEBU INHALATION SCH ×2 (07:39→20:00)
[2023-02-23] MEDS: PANTOPRAZOLE 40 MG/10 ML VIAL IV SCH (07:47)
[2023-02-23] MEDS: APIXABAN 2.5 MG TABLET PO SCH ×2 (07:48→20:44)
[2023-02-23] MEDS: CHLORHEXIDINE GLUCONATE 15 ML CUP MUCOUS MEM SCH (07:48)
[2023-02-23] MEDS: METOPROLOL TARTRATE 25 MG TAB PO SCH ×2 (07:48→20:45)
--- NOTE | 2023-02-23 07:48 | XR ---
EXAMINATION TYPE: XR chest 1V portable DATE OF EXAM: 02/23/2023 5:51 AM COMPARISON: Chest radiograph from one day prior. TECHNIQUE: XR chest 1V portable Frontal view of the chest. CLINICAL INDICATION:Male, 82 years old with history of Tube placement; FINDINGS: Lungs/Pleura: There is no evidence of pleural effusion, focal consolidation, or pneumothorax. Pulmonary vascularity: Unremarkable. Heart/mediastinum: Cardiomediastinal silhouette is unremarkable. Atherosclerotic calcifications are seen in the aorta. Single-lead cardiac conduction device overlying the left hemithorax with lead proj ecting over the right ventricle. Musculoskeletal: No acute osseous pathology. Other findings: Subcutaneous emphysema scattered throughout the visualized thorax. Lines/Tubes: Endotracheal tube with distal tip 6.0 cm above the saeid. Nasogastric tube with its distal tip and side-port projecting under the diaphragm and projecting over the gastric lumen. Right thoracotomy tubes in place with small Pneumothorax IMPRESSION: Right thoracotomy tubes with small (improved) pneumothorax. Support endotracheal tubes and right thoracotomy tubes in appropriate position.
[2023-02-23] MEDS: FORMOTEROL FUMARATE 20 MCG/2 ML NEBU INHALATION SCH ×2 (07:53→20:00)
--- NOTE | 2023-02-23 09:07 | P.PN ---
Subjective Progress Note Date: 02/23/23 I am seeing this patient in new consultation today 02/21/2023 in the emergency room post PEA cardiac arrest. Patient is a 82-year-old white male with past medical history significant for atrial fibrillation, congestive heart failure status post AICD, hypertension, COPD, BPH. Patient has followed-up in the past with Dr. Farah, but has not had any recent office visits. Patient is known to have severe emphysema with an FEV1 44% of predicted and reduced DLCO on PFT from 2017. Apparently, the patient was in some respiratory distress yesterday morning, and EMS was called. In route, he did reportedly have a PEA cardiac arrest with approximately 1 minute downtime. The patient was unresponsive and intubated in the emergency room. Initial chest x-ray showed endotracheal tube 6.4 cm above the saeid, an NG tube within the distal esophagus, bilateral pleural effusions, left basilar airspace opacity concerning for developing pneumonia, and a masslike area near the right perihilar region. The patient was hypotensive and tachycardic. A follow-up chest CT did show development of a moderate size right pneumothorax. A right ThoraVent was placed in the emergency room, without initial resolution of pneumothorax. A right thoracotomy tube was then placed with reduction in the patient's right-sided pneumothorax to less than 20%. The endotracheal tracheal tube was also adjusted, and is currently 4.8 cm above the saeid. Patient is currently intubated, and synchronous with the mechanical ventilator. No ABG was initially obtained, and I did place a right radial arterial line. Current ventilator settings are assist control, respiratory rate 20, tidal volume 350, FiO2 100%, and PEEP of 5. ABG on these settings show a pO2 greater than 400, pCO2 of 53, pH 7.42. The FiO2 will be titrated accordingly. Chest tube is to suction, and there is an intermittent air leak. Peak pressure is 28 and plateau pressure 13. Blood pressure is now hypertensive, and norepinephrine is infusing at 0.05 mcg/kg/m through a femoral central venous catheter. Norepinephrine will likely be titrated off. Heart rh ythm was atrial fibrillation with rapid ventricular rate, currently atrial fibrillation with a heart rate of 70 bpm. Propofol is infusing at 40 mcg/kg/m. The patient is sedated and synchronous with the ventilator. CBC on arrival shows evidence count of 11.7, hemoglobin 8.5, hematocrit 28.3, platelets 198. BMP on arrival shows sodium 143, potassium 5, chloride 96, serum bicarbonate 39, BUN 49, creatinine 0.84, glucose 180. No IV maintenance fluids infusing. No Archuleta catheter for accurate intake and output. Lactic acid was elevated at 3.7, and is trending down currently 2.7. Troponins less than 0.012. NT proBNP was elevated at 3400. Urinalysis was unremarkable for UTI. Negative for COVID-19. Patient has received doses of azithromycin and Rocephin. He is afebrile. Patient will be admitted to the intensive care unit once bed available. On today's evaluation of 02/22/2023, the patient is being seen for a follow-up. As mentioned, the patient is post PEA cardiac arrest along with a right-sided pneumothorax. As mentioned, the patient had a thoravent inserted with subsequent a right-sided chest tube and he had adequate expansion of the right lung. On yesterday's evaluation, and without removing the thoravent as I thought that the chest tube itself should be adequate in maintaining his lung expansion. However, after removal of the thoravent the patient developed a righ t-sided pneumothorax and he continued to have persistent air leak through the regular chest tube. The chest tube was minute related. Morning chest x-ray revealed that the patient has a at least 50% pneumothorax on the right. The chest tube is in a good location. Has developed some subcu emphysema. He does have persistent and ongoing care leak through the right-sided chest tube and the thoravent hole is also leaking. While on a mechanical ventilator, the patient is losing approximately 75 mL of air. The ventilator settings with an assist control of 20, tidal volume of 350, FiO2 of 60% with a PEEP of 5. The returning tidal volume is 275. His peak air pressures 26. Blood gas today shows a pH of 7.42 with a pCO2 of 45 and pO2 of 129. The patient's WBC count of 12.3 with a hemoglobin 10.3 and a platelet count of 172. BUN is 58 with a creatinine of 1.06 and sodium levels of 144. The preliminary blood cultures showed gram- positive cocci in clusters. The sputum sample also showed many gram-positive cocci. The patient currently is on IV Zosyn as an empiric antibiotic coverage. The patient remains on propofol for sedation which is running at 45 mcg/kg/m. The patient on bronchodilators. The patient is on steroids. His cardiac rhythm is A. fib and the rate is controlled and the patient is taken metoprolol 25 mg twice a day and he is also 90 cognition with Eliquis 2.5 mg by mouth twice a day. Note that his white cell count was done elevated. Lactic acid level is normalized down to 1.4. Covid 19 testing was negative. Legionella urine antigen has been also negative. Echocardiogram was completed yesterday and the patient was found to have moderate LV systolic dysfunction with an ejection fraction of 35-40%. Moderate tricuspid regurgitation and moderate pulmonary hypertension. No other significant abnormalities noted on the echocardiogram. Neurologically, the patient has no seizure activity. He does grimace to painful stimulation and he does withdrawal. We are going to give him a sedation holiday today and assess his underlying neurologic status. Note that since admission, computed tomography scan of the brain has not been done post cardiac arrest. 02/23/2023, the patient remains intubated on a mechanical ventilator. The patient remains on propofol at 50 mcg/kg/m. On yesterday's evaluation, he was grimacing to deep painful stimulation. This morning, there is no reaction to painful stimulation. It's possible that the patient is deeply sedated. The sedation holiday will be given to him today post cardiac arrest. At the same time, a thoravent was inserted yesterday and patient is a right-sided chest tube. Both tubes are actively leaking air and the patient is losing approximately 75 mL of his tidal volume with each breath. Despite all this, he is oxygenating well. He is on assist control mode at a rate of 20 and tidal volume is at 350 with an FiO2 of 40% with a PEEP of 5. Chest x-ray from today shows no evidence of any significant or sizable pneumothorax. There may be a small tiny right apical pneumothorax. There is also development of bilateral pleural effusions. ET tube is in a good location. There is background emp hysema. At the same time there is also extensive subcu his emphysema bilaterally more so on the right. The NG tube is also in good location. The blood gas from today shows a pH of 7.4 with a pCO2 of 46 and pO2 115. The patient is afebrile. The patient is hemodynamically stable on no pressors and the patient is on 75 mL of normal saline. He is covered with IV Zosyn. The blood culture was positive for coagulase-negative staph, a contaminant. The patient is on enteral feeding for nutritional support. Is currently on 20 mL of vital HP. His blood work from today shows a WBC count 12.5 with a hemoglobin of 9.9 and a platelet count of 132 which is lower compared to yesterday. Sodiums of 144, potassium is at 3.5, Stephen 111 with a bicarb of 28 and a BUN of 58 and a creatinine of 0.8. His cardiac rhythm is atrial fibrillation and the patient remains on anticoagulation. He is on oralEliquis 2.5 mg by mouth twice a day. He remains on bronchodilators. He remains on steroids and Solu-Medrol as the dose of 40 mg IV every 6 hours. He is on metoprolol for rate control 25 mg twice a day. Objective - Vital Signs Vital signs: Vital Signs Temp 97.3 F L 02/23/23 08:00 Pulse 92 02/23/23 08:06 Resp 20 02/23/23 08:00 BP 126/78 02/23/23 08:00 Pulse Ox 97 02/23/23 08:00 FiO2 40 02/23/23 08:00 Intake & Output 02/22/23 02/23/23 02/23/23 18:59 06:59 18:59 Intake Total 3601.866 2198.948 173 Output Total 625 447 85 Balance 710.438 704.948 88 Weight 57.7 kg Intake: IV 1078 958 153 Art Line 3 33 3 Piperacillin-Tazobactam 3 175 100 .375 gm In Sodium Chloride 0.9% 100 ml @ 25 mls/hr IVPB Q8H [facility] Rx#: [id number] Sodium Chloride 0.9% 1, 900 825 150 000 ml @ 75 mls/hr IV . [id number] [facility] Rx#:[id number] Intake, IV Titration 147.438 173.948 Amount propofoL 1,000 mg In 147.438 173.948 Empty Bag 1 bag @ 15 MCG/ KG/MIN 4.858 mls/hr IV . [id number] [facility] Rx#:[id number] Tube Feeding 110 20 20 Output: Chest Tube Drainage 37 Chest Tube Upper Lateral 20 Chest Thora-Vent Right Upper 17 Anterior Chest Urine 625 410 85 Other: Voiding Method Indwelling Catheter Indwelling Catheter Indwelling Catheter ABP, PAP, CO, CI - Last Documented Arterial Blood Pressure 149/77 - Exam GENERAL EXAM: Sedated and malnourished 82-year-old male, disheveled appearance and visibly dirty. The patient is currently sedated on propofol, calm and comfortable. HEAD: Normocephalic and atraumatic EYES: Pupils are 1+ bilaterally and equal in size. Sluggish reaction to light. NOSE: Clear with pink turbinates. THROAT: No erythema or exudates. Poor dentition NECK: No masses, no JVD. CHEST: No chest wall deformity. Pectus excavatum. Right-sided thoracotomy tube hole is leaking area. The patient also has a right-sided chest tube and some subcutaneous emphysema and also seen on the right side. thoravent on the right side of the chest. Both tubes are showing persistent air leak. In terms of fluid output, the output is minimal at this point in time and this bloody. LUNGS: Equal air entry with diffuse rhonchi throughout. Intubated to the mechanical ventilator CVS: S1 and S2 normal with no audible murmur, irregular rhythm. No extra heart sounds. Bedside monitor shows atrial fibrillation with controlled ventricular rate ABDOMEN: No hepatosplenomegaly, active bowel sounds, no guarding or rigidity. SPINE: No scoliosis or deformity SKIN: No rashes CENTRAL NERVOUS SYSTEM: Sedated DTRs 1-2+ throughout. Neutral Babinski, neurologic exam is somewhat limited. Pupils are round 3 mm in size, no nystagmus, no facial asymmetry, positive cough and a gag. The patient seems to be deeply sedated today, not grimacing to painful stimulation. EXTREMITIES: There is no peripheral edema, all 4 extremities are dusky in appearance, peripheral pulses are 1+ and intact. - Labs CBC & Chem 7: 02/23/23 04:00 02/23/23 04:00 Labs: Abnormal Lab Results - Last 24 Hours (Table) 02/22/23 02/22/23 02/22/23 Range/Units 12:13 17:51 23:54 WBC (3.8-10.6) k/uL RBC (4.30-5.90) m/uL Hgb (13.0-17.5) gm/dL Hct (39.0-53.0) % MCV (80.0-100.0) fL Plt Count (150-450) k/uL Neutrophils # (1.3-7.7) k/uL Lymphocytes # (1.0-4.8) k/uL ABG pCO2 (35-45) mmHg ABG pO2 (83-108) mmHg ABG HCO3 (21-25) mmol/L ABG Total CO2 (19-24) mmol/L ABG O2 Saturation (94-97) % Chloride (98-107) mmol/L BUN (9-20) mg/dL Glucose (74-99) mg/dL POC Glucose (mg/dL) 158 H 144 H 174 H (70-110) mg/dL 02/23/23 02/23/23 02/23/23 Range/Units 04:00 04:00 05:58 WBC 12.5 H (3.8-10.6) k/uL RBC 2.94 L (4.30-5.90) m/uL Hgb 9.9 L (13.0-17.5) gm/dL Hct 30.2 L (39.0-53.0) % MCV 102.9 H (80.0-100.0) fL Plt Count 132 L (150-450) k/uL Neutrophils # 12.0 H (1.3-7.7) k/uL Lymphocytes # 0.1 L (1.0-4.8) k/uL ABG pCO2 (35-45) mmHg ABG pO2 (83-108) mmHg ABG HCO3 (21-25) mmol/L ABG Total CO2 (19-24) mmol/L ABG O2 Saturation (94-97) % Chloride 111 H (98-107) mmol/L BUN 58 H (9-20) mg/dL Glucose 161 H (74-99) mg/dL POC Glucose (mg/dL) 138 H (70-110) mg/dL 02/23/23 Range/Units 06:20 WBC (3.8-10.6) k/uL RBC (4.30-5.90) m/uL Hgb (13.0-17.5) gm/dL Hct (39.0-53.0) % MCV (80.0-100.0) fL Plt Count (150-450) k/uL Neutrophils # (1.3-7.7) k/uL Lymphocytes # (1.0-4.8) k/uL ABG pCO2 46 H (35-45) mmHg ABG pO2 115 H (83-108) mmHg ABG HCO3 29 H (21-25) mmol/L ABG Total CO2 30 H (19-24) mmol/L ABG O2 Saturation 98.6 H (94-97) % Chloride (98-107) mmol/L BUN (9-20) mg/dL Glucose (74-99) mg/dL POC Glucose (mg/dL) (70-110) mg/dL Microbiology - Last 24 Hours (Table) 02/20/23 13:35 Blood Culture Gram Stain - Preliminary Blood Blood Culture - Preliminary Coagulase Negative Staph 02/20/23 12:59 Gram Stain - Final Sputum Sputum Culture - Final Assessment and Plan Assessment: PEA cardiac arrest status post CPR and return of spontaneous circulation. Estimated down time was 1 minute. Patient was unresponsive on arrival, and ultimately intubated for airway protection. Follow-up chest CT did show development of a moderate to large sized right pneumothorax. Initial ThoraVent placement was not effective. The patient did require placement of a right thoracotomy tube, follow-up chest x-ray showed improvement of the right-sided pneumothorax. Subsequently, the thoravent was also inserted. On today's chest x-ray, the patient has adequate expansion of the right lung. Nevertheless, he has persistent air leak and both of the tubes. The right lung is expanded. There may be a tiny apical pneumothorax. No evidence of any tension and is hemodynamically stable. He will be given a sedation holiday to assess his mental status. Suspect an underlying encephalopathy related to cardiac arrest/hypoxemia. Moderate right-sided pneumothorax, status post ThoraVent and then right thoracotomy tube placement. The right lung is expanded and there is persistent air leak and both of the tubes Suspected left lower lobe pneumonia, possibly aspiration, and septic shock. Initial hypotension has resolved after fluid resuscitation and chest tube placement. Patient is on no pressors for now. COPD exacerbation, secondary to above. Patient has known severe emphysema with an FEV1 44% of predicted, partially reversible, and reduced DLCO on PFT from 2017 Acute on chronic hypoxemic and hypercapnic respiratory failure, currently on mechanical ventilator. Atrial fibrillation with controlled rate and the patient is on beta blockers wit h metoprolol and Eliquis. Systolic heart failure with ejection fraction of 35-40%, seems to be compensated for now Anemia, no obvious acute blood loss Lactic acidemia, improving, and the lactic acid level is normalized Right middle lobe pulmonary nodule measuring 7 mm, recommended follow-up in 3-6 months History of nonischemic cardiomyopathy with an EF of 20-25%, estimated on most recently available echocardiogram done on September,. Status post implantation of AICD Hyperlipidemia Benign essential hypertension BPH Gram-positive cocci in the blood, likely a contaminant, would like to repeat blood cultures Plan: Persistent pneumothorax on the right no sizable pneumothorax on today's chest x- ray Persistent air leak through the chest tube and thoravent. Despite the air leak, the patient is oxygenating well and he has adequate ventilation Persistent leak through the thoravent insertion hole Monitor the right-sided pneumothorax Continue IV Zosyn Patient is currently on a combination of bronchodilators, budesonide, formoterol, and IV Solu-Medrol Patient is currently off pressors Continue propofol for sedation, and give the patient has sedation holiday Continue enteral feeding for nutritional support Heparin for DVT prophylaxis Protonix for GI prophylaxis Patient's condition is currently critical, and he is a full code. I did speak to the patient's POA and daughter, and they would like to continue with current treatment at this time. Prognosis is guarded due to above mentioned comorbidities. Patient will be admitted to the intensive care unit once bed available. That the POA and the daughter will be arriving to the hospital today for further discussion. His baseline performance of functional status is poor. He has advanced lung disease with ongoing persistent air leak as noted an hour daily evaluations. The right lung is expanded. Overall condition stable. Long-term outcome is poor based on the above. Obviously not a surgical candidate regarding his right-sided pneumothorax. critical care evaluation done in > 30 min. Time with Patient: Greater than 30
[2023-02-23] MEDS ORDERED: METOPROLOL TARTRATE 25 MG TAB PO STA (10:34)
--- NOTE | 2023-02-23 11:19 | P.PN ---
Subjective Progress Note Date: 02/23/23 Hospital Course: Patient is an 82-year-old male with atrial fibrillation, systolic congestive heart failure, COPD, hypertension, and prior AICD implantation who presented to the ER in severe respiratory distress. Patient had an out of hospital PEA arrest with CPR delivered by EMS for approximately 1 minute. On arrival there vital signs were significantly abnormal with a pulse of 144, respiratory rate of 10, and O2 sat of 84% on room air. He was emergently intubated. Initial chest x-ray showed right-sided pneumothorax. Initial EKG showed atrial fibrillation with rapid ventricular response. CT chest was completed which showed moderate right-sided pneumothorax, nasogastric tube in the esophagus, left long infectious or inflammatory process, right middle lobe pulmonary nodule, severe emphysematous changes, severe atherosclerosis, and colonic diverticulosis. Patient had a right-sided thoravent placed and then a chest tube. Initial laboratory analysis was remarkable for white blood cell count 11.7, hemoglobin 8.5, BUN 49, lactic acid 2.1, blood sugar 190. COVID-19 testing was negative. BNP was elevated at 3400. Initial troponin was negative at 0.012. Patient was started on bronchodilators, Zosyn, and was subsequently admitted to the ICU. He did require levophed for less than 24 hours. Critical care was consulted. Cardiology was consulted for A. fib. Patient had worsening of their pneumothorax after removal of the thoravent. Thoravent was replaced into the right chest cavity on the morning of 02/22/23. Echocardiogram ejection fraction 35-40%, moderate pulmonary hypertension, moderate tricuspid regurgitation. Subjective: Patient seen and examined at bedside. Currently tachycardic after being weaned off of sedation, pending spontaneous breathing trial. Pertinent positives and negatives as discussed above, a complete review of systems was performed and all other systems are negative. Vitals Signs Reviewed. General: [nontoxic], [no distress], [appears at stated age] Derm: [warm], [dry] Head: [atraumatic], [normocephalic], [symmetric] Eyes: left pupil slightly larger, [anicteric sclera] Mouth: [no lip lesion], [mucus membranes moist] Cardiovascular: [S1S2 reg], tachycardic, [no murmur] Lungs: [CTA bilateral], [no rhonchi, no rales] , [no accessory muscle use], intubated Abdominal: [soft], [ nontender to palpation], [no guarding], [no appreciable organomegaly] Ext: [has gross muscle atrophy], [no edema], [no contractures] Neuro: not moving his right upper extremity to pain Psych: unable to assess Data Reviewed Today: Pertinent Labs: WBC 12.5, hemoglobin 9.9, platelet 132, sodium 144, creatinine 0.89, pH 7.4, pCO2 46 Imaging: Chest x-ray independently interpreted, pneumothorax improved Assessment and Plan: Currently in medical ICU, prognosis is guarded Right-sided pneumothorax status post thorvent and Chest tube on 02/20/23, thoravent removed on 02/21. Acute exacerbation of COPD Left sided PNA, suspected Septic shock, resolved Acute on chronic hypoxic respiratory failure Coag ag negative staph in Blood culture like contaminant -Zosyn 3.375 g IV every 8 hours D # 4 -Continue normal saline NS at 75 cc/hr -Continue with scheduled and when necessary DuoNeb, Pulmicort, and perforomist, on solumedrol IV -Pulmonary note reviewed: sedation holiday today Atrial fibrillation with RVR Status post PEA arrest Compensated systolic congestive heart failure, last known EF 40-45% -Cardiology note reviewed: Continue with beta ann marie and anticoagulation -Metoprolol 25 mg by mouth twice daily -RVR likely related to pain this morning -Eliquis 2.5 mg twice daily -Lasix on hold secondary to requiring fluid resuscitation -Lipitor 10 mg at nightly Acute metabolic encephalopathy -CT head ordered Anemia, suspect due to chronic disease -Follow CBC, no active bleeding Chronic: Hypertension Prior myocardial infarction BPH Chronic O2 dependency at 3 L Back pain DVT ppx: eliquis Code status: Full code Anticipated discharge place: pending clinical course Anticipated discharge time: pending clinical course Objective - Vital Signs Vital signs: Vital Signs Temp 97.3 F L 02/23/23 08:00 Pulse 163 H 02/23/23 11:00 Resp 7 L 02/23/23 11:00 BP 116/81 02/23/23 10:00 Pulse Ox 97 02/23/23 11:00 FiO2 40 02/23/23 10:40 Intake & Output 02/22/23 02/23/23 02/23/23 18:59 06:59 18:59 Intake Total 8979.043 0682.948 332.007 Output Total 625 447 165 Balance 710.438 704.948 167.007 Weight 57.7 kg Intake: IV 1078 958 222 Art Line 3 33 12 Piperacillin-Tazobactam 3 175 100 .375 gm In Sodium Chloride 0.9% 100 ml @ 25 mls/hr IVPB Q8H [facility] Rx#: [id number] Sodium Chloride 0.9% 1, 900 825 210 000 ml @ 75 mls/hr IV . [id number] [facility] Rx#:[id number] Intake, IV Titration 147.438 173.948 90.007 Amount propofoL 1,000 mg In 147.438 173.948 90.007 Empty Bag 1 bag @ 15 MCG/ KG/MIN 4.858 mls/hr IV . [id number] [facility] Rx#:[id number] Tube Feeding 110 20 20 Output: Chest Tube Drainage 37 Chest Tube Upper Lateral 20 Chest Thora-Vent Right Upper 17 Anterior Chest Urine 625 410 165 Other: Voiding Method Indwelling Catheter Indwelling Catheter Indwelling Catheter ABP, PAP, CO, CI - Last Documented Arterial Blood Pressure 153/88 - Labs CBC & Chem 7: 02/23/23 04:00 02/23/23 04:00 Labs: Abnormal Lab Results - Last 24 Hours (Table) 02/22/23 02/22/23 02/22/23 Range/Units 12:13 17:51 23:54 WBC (3.8-10.6) k/uL RBC (4.30-5.90) m/uL Hgb (13.0-17.5) gm/dL Hct (39.0-53.0) % MCV (80.0-100.0) fL Plt Count (150-450) k/uL Neutrophils # (1.3-7.7) k/uL Lymphocytes # (1.0-4.8) k/uL ABG pCO2 (35-45) mmHg ABG pO2 (83-108) mmHg ABG HCO3 (21-25) mmol/L ABG Total CO2 (19-24) mmol/L ABG O2 Saturation (94-97) % Chloride (98-107) mmol/L BUN (9-20) mg/dL Glucose (74-99) mg/dL POC Glucose (mg/dL) 158 H 144 H 174 H (70-110) mg/dL 02/23/23 02/23/23 02/23/23 Range/Units 04:00 04:00 05:58 WBC 12.5 H (3.8-10.6) k/uL RBC 2.94 L (4.30-5.90) m/uL Hgb 9.9 L (13.0-17.5) gm/dL Hct 30.2 L (39.0-53.0) % MCV 102.9 H (80.0-100.0) fL Plt Count 132 L (150-450) k/uL Neutrophils # 12.0 H (1.3-7.7) k/uL Lymphocytes # 0.1 L (1.0-4.8) k/uL ABG pCO2 (35-45) mmHg ABG pO2 (83-108) mmHg ABG HCO3 (21-25) mmol/L ABG Total CO2 (19-24) mmol/L ABG O2 Saturation (94-97) % Chloride 111 H (98-107) mmol/L BUN 58 H (9-20) mg/dL Glucose 161 H (74-99) mg/dL POC Glucose (mg/dL) 138 H (70-110) mg/dL 02/23/23 Range/Units 06:20 WBC (3.8-10.6) k/uL RBC (4.30-5.90) m/uL Hgb (13.0-17.5) gm/dL Hct (39.0-53.0) % MCV (80.0-100.0) fL Plt Count (150-450) k/uL Neutrophils # (1.3-7.7) k/uL Lymphocytes # (1.0-4.8) k/uL ABG pCO2 46 H (35-45) mmHg ABG pO2 115 H (83-108) mmHg ABG HCO3 29 H (21-25) mmol/L ABG Total CO2 30 H (19-24) mmol/L ABG O2 Saturation 98.6 H (94-97) % Chloride (98-107) mmol/L BUN (9-20) mg/dL Glucose (74-99) mg/dL POC Glucose (mg/dL) (70-110) mg/dL Microbiology - Last 24 Hours (Table) 02/20/23 13:35 Blood Culture Gram Stain - Preliminary Blood Blood Culture - Preliminary Coagulase Negative Staph 02/20/23 12:59 Gram Stain - Final Sputum Sputum Culture - Final
[2023-02-23 11:42] LABS: ABG Base Excess 3.4 mmol/L; ABG HCO3 29 mmol/L (21-25); ABG Oxygen Saturation 98.3 % (94-97); ABG PCO2 53 mmHg (35-45); ABG PH 7.35 (7.35-7.45); ABG PO2 113 mmHg (83-108); ABG TCO2 31 mmol/L (19-24); Allen Test Performed? Yes
[2023-02-23 11:51] LABS: Glucose,Whole Blood 189 mg/dL (70-110)
[2023-02-23 14:12] LABS: Glucose,Whole Blood 145 mg/dL (70-110)
[2023-02-23] MEDS ORDERED: DEXTROSE 5% IN WATER 100 ML with AMIODARONE 150 MG IV ONE (16:24)
[2023-02-23] MEDS ORDERED: AMIODARONE 360 MG in DEXTROSE 5% IN WATER 200 ML IV ONE ×2 (16:24)
[2023-02-23 17:50] LABS: Glucose,Whole Blood 147 mg/dL (70-110)
[2023-02-23] MEDS: ATORVASTATIN 20 MG TAB PO SCH (20:44)
[2023-02-23] MEDS ORDERED: AMIODARONE 450 MG in DEXTROSE 5% IN WATER 250 ML IV SCH ×2 (22:30)
[2023-02-23 23:56] LABS: Glucose,Whole Blood 121 mg/dL (70-110)
[2023-02-24] MEDS: IPRATROPIUM-ALBUTEROL 3 ML NEB INHALATION SCH ×7 (00:10→20:05)
[2023-02-24] MEDS: INSULIN ASPART (NovoLOG) 100 UNIT/ML VIAL SQ SCH ×4 (00:40→18:18)
[2023-02-24] MEDS: methylPREDNISolone SOD SUCCI 40 MG/ML 1 ML VIAL IV SCH ×4 (00:42→18:17)
[2023-02-24] MEDS: HYDROmorphone 0.5 MG/0.5 ML SYRINGE IVP PRN ×4 (00:44→23:04)
[2023-02-24] MEDS: PIPERACILLIN-TAZOBACTAM 3.375 GM in SODIUM CHLORIDE 0.9% 100 ML IVPB SCH ×3 (01:27→18:17)
[2023-02-24] MEDS: METOPROLOL TARTRATE 25 MG TAB PO SCH (05:14)
[2023-02-24 05:59] LABS: Glucose,Whole Blood 114 mg/dL (70-110)
[2023-02-24 07:22] LABS: Basophils % (A) 0 %; Eosinophils % (A) 0 %; HCT 33.3 % (39.0-53.0); HGB 10.6 gm/dL (13.0-17.5); Hypochromasia Marked; Lymphocytes # (A) 0.1 k/uL (1.0-4.8); Lymphocytes % (A) 1 %; MCH 32.9 pg (25.0-35.0); MCHC 31.8 g/dL (31.0-37.0); MCV 103.3 fL (80.0-100.0); Macrocytosis Slight; Mean Platelet Volume 10.2; Monocytes # (A) 0.6 k/uL (0-1.0); Monocytes % (A) 3 %; Neutrophils # (A) 18.8 k/uL (1.3-7.7); Neutrophils % (A) 96 %; Platelet Count 168 k/uL (150-450); RBC 3.23 m/uL (4.30-5.90); RDW 14.1 % (11.5-15.5); WBC 19.6 k/uL (3.8-10.6)
--- NOTE | 2023-02-24 07:27 | P.PN ---
Subjective Progress Note Date: 02/24/23 PROGRESS NOTE The patient is an 82-year-old male with a known history of severe nonischemic cardiomyopathy, post cardiac catheterization in 2013, chronic persistent atrial fibrillation, status post ICD implantation and severe COPD who presented with symptoms of progressive dyspnea in route to the hospital he had PEA cardiac arrest underwent CPR was intubated and was found to have evidence of moderate ri ght sided pneumothorax. He underwent placement of ThoraVent and chest tube.. He was in atrial fibrillation. Initially he was on vasopressors was subsequently stopped. Patient has a known history of significant COPD with FEV1 of 44%. He is sedated, intubated, in atrial fibrillation. His ventricular rate is controlled. His blood pressure is stable and his urinary output is stable. On presentation his troponin was normal and his NT proBNP was 3400. His plasma lactic acid was elevated. He had no evidence of ventricular ectopic activity. It is unclear when he was evaluated in the office last time. February 22 The patient remains intubated, he continues to have the from has chest tube was persistent pneumothorax. He has placement of another tube. He continues to be in atrial fibrillation with controlled ventricular response. The patient has a known history of severe COPD. He has a known history of cardiomyopathy. He had an echocardiogram that showed an ejection fraction of 35-40% with moderate pulmonary hypertension and moderate tricuspid regurgitation. The study was suboptimal. February 23: The patient remains intubated and sedated. He is in atrial fibrillation with controlled ventricular response. His heart rate was up slightly earlier but back in the 80s to 90s. He is on no vasopressors. He continues to have air leak through his chest tube. There is no evidence of ventricular ectopic activity. His urine output stable. He underwent placement of a Thoravent yesterday. His chest x-ray shows improvement in his pneumothorax. February 24: The patient is extubated, feels better, continues to be in atrial fibrillation, had episodes of rapid ventricle response. He was started on IV amiodarone. His urine output has been stable. He continues to have a chest tube and Thoravent. Subcutaneous emphysema is noted. He denies any chest discomfort, nausea or vomiting. He is on no vasopressors. Medications: Metoprolol 25 mg twice a, Lipitor 20 mg daily, Eliquis 2.5 mg twice a day, Solu- Medrol, IV amiodarone PHYSICAL EXAMINATION: Blood pressure 169/98 heart rate 90, alert and oriented LUNGS: Decreased air exchange, chest tube in place, subcutaneous emphysema HEART: Irregular rate and rhythm, S1, S2. No S3. Systolic Ejection murmur, ICD in the left subclavian area ABDOMEN: Soft, positive bowel sounds, no organomegaly EXTREMETIES: No edema LAB: Hemoglobin 10.6, WBC 19.6, IMPRESSION: 1. Cardiac arrest with recurrent PEA, stable at this time, stable 2. Respiratory failure with spontaneous right sided thorax, extubated 3. Chronic persistent atrial fibrillation, anticoagulated, with episodes of rapid ventricle response 4. Nonischemic cardiomyopathy, post ICD 5. Hypertension PLAN: 1. Stop IV amiodarone 2. Increase beta ann marie 3. Add KATERINE inhibitor 4. Continue anticoagulation 5. Depending on his progress further recommendations will be made Objective - Vital Signs Vital signs: Vital Signs Temp 98.5 F 02/24/23 04:00 Pulse 105 H 02/24/23 06:00 Resp 17 02/24/23 06:00 BP 168/98 02/24/23 06:00 Pulse Ox 94 L 02/24/23 06:00 FiO2 40 02/23/23 12:00 Intake & Output 02/23/23 02/24/23 02/24/23 18:59 06:59 18:59 Intake Total 516.007 353 Output Total 627 515 Balance -110.993 -162 Intake: IV 406 353 Art Line 36 33 Piperacillin-Tazobactam 3 100 .375 gm In Sodium Chloride 0.9% 100 ml @ 25 mls/hr IVPB Q8H [facility] Rx#: [id number] Sodium Chloride 0.9% 1, 370 220 000 ml @ 75 mls/hr IV . [id number] [facility] Rx#:[id number] Intake, IV Titration 90.007 Amount propofoL 1,000 mg In 90.007 Empty Bag 1 bag @ 15 MCG/ KG/MIN 4.858 mls/hr IV . [id number] [facility] Rx#:[id number] Tube Feeding 20 Output: Chest Tube Drainage 27 25 Chest Tube Upper Lateral 10 5 Chest Thora-Vent Right Upper 17 20 Anterior Chest Urine 600 490 Other: Voiding Method Indwelling Catheter Indwelling Catheter ABP, PAP, CO, CI - Last Documented Arterial Blood Pressure 179/87 - Labs CBC & Chem 7: 02/24/23 06:41 02/23/23 23:07 Labs: Abnormal Lab Results - Last 24 Hours (Table) 02/23/23 02/23/23 02/23/23 Range/Units 11:39 11:50 14:11 WBC (3.8-10.6) k/uL RBC (4.30-5.90) m/uL Hgb (13.0-17.5) gm/dL Hct (39.0-53.0) % MCV (80.0-100.0) fL Neutrophils # (1.3-7.7) k/uL Lymphocytes # (1.0-4.8) k/uL ABG pCO2 53 H (35-45) mmHg ABG pO2 113 H (83-108) mmHg ABG HCO3 29 H (21-25) mmol/L ABG Total CO2 31 H (19-24) mmol/L ABG O2 Saturation 98.3 H (94-97) % POC Glucose (mg/dL) 189 H 145 H (70-110) mg/dL 02/23/23 02/23/23 02/24/23 Range/Units 17:48 23:55 05:58 WBC (3.8-10.6) k/uL RBC (4.30-5.90) m/uL Hgb (13.0-17.5) gm/dL Hct (39.0-53.0) % MCV (80.0-100.0) fL Neutrophils # (1.3-7.7) k/uL Lymphocytes # (1.0-4.8) k/uL ABG pCO2 (35-45) mmHg ABG pO2 (83-108) mmHg ABG HCO3 (21-25) mmol/L ABG Total CO2 (19-24) mmol/L ABG O2 Saturation (94-97) % POC Glucose (mg/dL) 147 H 121 H 114 H (70-110) mg/dL 02/24/23 Range/Units 06:41 WBC 19.6 H (3.8-10.6) k/uL RBC 3.23 L (4.30-5.90) m/uL Hgb 10.6 L (13.0-17.5) gm/dL Hct 33.3 L (39.0-53.0) % MCV 103.3 H (80.0-100.0) fL Neutrophils # 18.8 H (1.3-7.7) k/uL Lymphocytes # 0.1 L (1.0-4.8) k/uL ABG pCO2 (35-45) mmHg ABG pO2 (83-108) mmHg ABG HCO3 (21-25) mmol/L ABG Total CO2 (19-24) mmol/L ABG O2 Saturation (94-97) % POC Glucose (mg/dL) (70-110) mg/dL Microbiology - Last 24 Hours (Table) 02/20/23 13:50 Blood Culture Gram Stain - Preliminary Blood Blood Culture - Preliminary 02/22/23 10:48 Blood Culture - Preliminary Blood 02/22/23 09:38 Nasal Screen MRSA/MSSA - Final Nasopharyngeal Swab 02/20/23 13:35 Blood Culture Gram Stain - Final Blood Blood Culture - Final Coagulase Negative Staph
[2023-02-24 07:42] LABS: African American GFR (CKD) >90 (>60 ml/min/1.73 sqM); Anion Gap 7 mmol/L; Blood Urea Nitrogen 50 mg/dL (9-20); Carbon Dioxide 31 mmol/L (22-30); Chloride 109 mmol/L (98-107); Glucose 123 mg/dL (74-99); Non-African American GFR(CKD) 80 (>60 ml/min/1.73 sqM); Potassium 4.2 mmol/L (3.5-5.1); Sodium 147 mmol/L (137-145)
--- NOTE | 2023-02-24 08:20 | XR ---
EXAMINATION TYPE: XR chest 1V portable DATE OF EXAM: 02/24/2023 COMPARISON: 02/23/2023 HISTORY: SOB, Follow Up FINDINGS: Right-sided pleural catheter noted to be in place. Right-sided pneumothorax is increased and now demo nstrates an apical pleural distance of 3.1 cm. Thoracotomy tube within the right chest is unchanged. Endotracheal tube has been removed as has the NG tube. Subcutaneous air is noted along the chest wall right greater than left. Small bilateral pleural effusions. No left-sided pneumothorax present. Sing le lead pacer is in place. Stable appearance of the cardio-mediastinal structures at this time. Pleural effusion unchanged. IMPRESSION: 1. Right-sided pneumothorax is increased and now demonstrates an apical pleural distance of 3.1 cm. 2. Indwelling tubes and catheters as noted.
[2023-02-24] MEDS: METOPROLOL TARTRATE 50 MG TAB PO SCH ×2 (08:22→20:32)
[2023-02-24] MEDS: lisinopriL 5 MG TAB PO SCH ×2 (08:23→20:32)
[2023-02-24] MEDS: PANTOPRAZOLE 40 MG/10 ML VIAL IV SCH (08:23)
[2023-02-24] MEDS: APIXABAN 2.5 MG TABLET PO SCH ×2 (08:23→20:32)
[2023-02-24] MEDS: FORMOTEROL FUMARATE 20 MCG/2 ML NEBU INHALATION SCH ×2 (08:44→19:48)
[2023-02-24] MEDS: BUDESONIDE 1 MG/2 ML NEBU INHALATION SCH ×2 (08:44→19:48)
--- NOTE | 2023-02-24 08:55 | P.PN ---
Subjective Progress Note Date: 02/24/23 I am seeing this patient in new consultation today 02/21/2023 in the emergency room post PEA cardiac arrest. Patient is a 82-year-old white male with past medical history significant for atrial fibrillation, congestive heart failure status post AICD, hypertension, COPD, BPH. Patient has followed-up in the past with Dr. Farah, but has not had any recent office visits. Patient is known to have severe emphysema with an FEV1 44% of predicted and reduced DLCO on PFT from 2017. Apparently, the patient was in some respiratory distress yesterday morning, and EMS was called. In route, he did reportedly have a PEA cardiac arrest with approximately 1 minute downtime. The patient was unresponsive and intubated in the emergency room. Initial chest x-ray showed endotracheal tube 6.4 cm above the saeid, an NG tube within the distal esophagus, bilateral pleural effusions, left basilar airspace opacity concerning for developing pneumonia, and a masslike area near the right perihilar region. The patient was hypotensive and tachycardic. A follow-up chest CT did show development of a moderate size right pneumothorax. A right ThoraVent was placed in the emergency room, without initial resolution of pneumothorax. A right thoracotomy tube was then placed with reduction in the patient's right-sided pneumothorax to less than 20%. The endotracheal tracheal tube was also adjusted, and is currently 4.8 cm above the saeid. Patient is currently intubated, and synchronous with the mechanical ventilator. No ABG was initially obtained, and I did place a right radial arterial line. Current ventilator settings are assist control, respiratory rate 20, tidal volume 350, FiO2 100%, and PEEP of 5. ABG on these settings show a pO2 greater than 400, pCO2 of 53, pH 7.42. The FiO2 will be titrated accordingly. Chest tube is to suction, and there is an intermittent air leak. Peak pressure is 28 and plateau pressure 13. Blood pressure is now hypertensive, and norepinephrine is infusing at 0.05 mcg/kg/m through a femoral central venous catheter. Norepinephrine will likely be titrated off. Heart rh ythm was atrial fibrillation with rapid ventricular rate, currently atrial fibrillation with a heart rate of 70 bpm. Propofol is infusing at 40 mcg/kg/m. The patient is sedated and synchronous with the ventilator. CBC on arrival shows evidence count of 11.7, hemoglobin 8.5, hematocrit 28.3, platelets 198. BMP on arrival shows sodium 143, potassium 5, chloride 96, serum bicarbonate 39, BUN 49, creatinine 0.84, glucose 180. No IV maintenance fluids infusing. No Archuleta catheter for accurate intake and output. Lactic acid was elevated at 3.7, and is trending down currently 2.7. Troponins less than 0.012. NT proBNP was elevated at 3400. Urinalysis was unremarkable for UTI. Negative for COVID-19. Patient has received doses of azithromycin and Rocephin. He is afebrile. Patient will be admitted to the intensive care unit once bed available. On today's evaluation of 02/22/2023, the patient is being seen for a follow-up. As mentioned, the patient is post PEA cardiac arrest along with a right-sided pneumothorax. As mentioned, the patient had a thoravent inserted with subsequent a right-sided chest tube and he had adequate expansion of the right lung. On yesterday's evaluation, and without removing the thoravent as I thought that the chest tube itself should be adequate in maintaining his lung expansion. However, after removal of the thoravent the patient developed a righ t-sided pneumothorax and he continued to have persistent air leak through the regular chest tube. The chest tube was minute related. Morning chest x-ray revealed that the patient has a at least 50% pneumothorax on the right. The chest tube is in a good location. Has developed some subcu emphysema. He does have persistent and ongoing care leak through the right-sided chest tube and the thoravent hole is also leaking. While on a mechanical ventilator, the patient is losing approximately 75 mL of air. The ventilator settings with an assist control of 20, tidal volume of 350, FiO2 of 60% with a PEEP of 5. The returning tidal volume is 275. His peak air pressures 26. Blood gas today shows a pH of 7.42 with a pCO2 of 45 and pO2 of 129. The patient's WBC count of 12.3 with a hemoglobin 10.3 and a platelet count of 172. BUN is 58 with a creatinine of 1.06 and sodium levels of 144. The preliminary blood cultures showed gram- positive cocci in clusters. The sputum sample also showed many gram-positive cocci. The patient currently is on IV Zosyn as an empiric antibiotic coverage. The patient remains on propofol for sedation which is running at 45 mcg/kg/m. The patient on bronchodilators. The patient is on steroids. His cardiac rhythm is A. fib and the rate is controlled and the patient is taken metoprolol 25 mg twice a day and he is also 90 cognition with Eliquis 2.5 mg by mouth twice a day. Note that his white cell count was done elevated. Lactic acid level is normalized down to 1.4. Covid 19 testing was negative. Legionella urine antigen has been also negative. Echocardiogram was completed yesterday and the patient was found to have moderate LV systolic dysfunction with an ejection fraction of 35-40%. Moderate tricuspid regurgitation and moderate pulmonary hypertension. No other significant abnormalities noted on the echocardiogram. Neurologically, the patient has no seizure activity. He does grimace to painful stimulation and he does withdrawal. We are going to give him a sedation holiday today and assess his underlying neurologic status. Note that since admission, computed tomography scan of the brain has not been done post cardiac arrest. 02/23/2023, the patient remains intubated on a mechanical ventilator. The patient remains on propofol at 50 mcg/kg/m. On yesterday's evaluation, he was grimacing to deep painful stimulation. This morning, there is no reaction to painful stimulation. It's possible that the patient is deeply sedated. The sedation holiday will be given to him today post cardiac arrest. At the same time, a thoravent was inserted yesterday and patient is a right-sided chest tube. Both tubes are actively leaking air and the patient is losing approximately 75 mL of his tidal volume with each breath. Despite all this, he is oxygenating well. He is on assist control mode at a rate of 20 and tidal volume is at 350 with an FiO2 of 40% with a PEEP of 5. Chest x-ray from today shows no evidence of any significant or sizable pneumothorax. There may be a small tiny right apical pneumothorax. There is also development of bilateral pleural effusions. ET tube is in a good location. There is background emp hysema. At the same time there is also extensive subcu his emphysema bilaterally more so on the right. The NG tube is also in good location. The blood gas from today shows a pH of 7.4 with a pCO2 of 46 and pO2 115. The patient is afebrile. The patient is hemodynamically stable on no pressors and the patient is on 75 mL of normal saline. He is covered with IV Zosyn. The blood culture was positive for coagulase-negative staph, a contaminant. The patient is on enteral feeding for nutritional support. Is currently on 20 mL of vital HP. His blood work from today shows a WBC count 12.5 with a hemoglobin of 9.9 and a platelet count of 132 which is lower compared to yesterday. Sodiums of 144, potassium is at 3.5, Stephen 111 with a bicarb of 28 and a BUN of 58 and a creatinine of 0.8. His cardiac rhythm is atrial fibrillation and the patient remains on anticoagulation. He is on oralEliquis 2.5 mg by mouth twice a day. He remains on bronchodilators. He remains on steroids and Solu-Medrol as the dose of 40 mg IV every 6 hours. He is on metoprolol for rate control 25 mg twice a day. 02/24/2023, the patient is awake and alert and communicating. Noted the patient was weaned off the sedation, and progressively, he was given a spontaneous breathing trial after confirming is adequate weaning parameters and the patient was subsequently extubated. He remains extubated overnight and is currently on 3 L of oxygen by nasal cannula. His breathing is nonlabored and his pulse ox is 97% on 3 L of oxygen. Repeat chest x-ray from this morning shows a right-sided pneumothorax which is in order of 20%. The patient has a right-sided chest tube and a thoravent in place and both of them show persistent air leak. He does have some presents emphysema over the chest mainly anteriorly more so on the right. No facial swelling. No use of accessory muscles of breathing. He is hemodynamically stable. In fact, he is hypertensive and the patient is currently on this is no peripheral 5 mg by mouth twice a day started today for blood pressure control. He is also metoprolol 50 mg by mouth twice a day. His underlying cardiac rhythm remains atrial fibrillation and the patient is a dequately controlled and he remains on anticoagulation with Eliquis. He remains on DuoNeb about treatments [id number]. He remains on IV Solu-Medrol 40 mg every 6 hours. He is also on antibiotic coverage with Zosyn. Family arrives and I had a lengthy discussion with the daughter at the bedside. Decided to proceed with a DNR/DNI CODE STATUS. No other active issues for now. We'll do a bedside swallow evaluation. We'll keep the right-sided chest tubes in place. Is quite weak and debilitated. He is also very hard of hearing. Nevertheless, he seems to be appropriate and he is communicating at this point in time. Objective - Vital Signs Vital signs: Vital Signs Temp 98.5 F 02/24/23 04:00 Pulse 93 02/24/23 07:00 Resp 10 L 02/24/23 07:00 BP 177/103 02/24/23 07:00 Pulse Ox 98 02/24/23 07:00 FiO2 40 02/23/23 12:00 Intake & Output 02/23/23 02/24/23 02/24/23 18:59 06:59 18:59 Intake Total 516.007 353 23 Output Total 627 515 40 Balance -110.993 -162 -17 Intake: IV 406 353 23 Art Line 36 33 3 Piperacillin-Tazobactam 3 100 .375 gm In Sodium Chloride 0.9% 100 ml @ 25 mls/hr IVPB Q8H [facility] Rx#: [id number] Sodium Chloride 0.9% 1, 370 220 20 000 ml @ 75 mls/hr IV . [id number] [facility] Rx#:[id number] Intake, IV Titration 90.007 Amount propofoL 1,000 mg In 90.007 Empty Bag 1 bag @ 15 MCG/ KG/MIN 4.858 mls/hr IV . [id number] [facility] Rx#:[id number] Tube Feeding 20 Output: Chest Tube Drainage 27 25 Chest Tube Upper Lateral 10 5 Chest Thora-Vent Right Upper 17 20 Anterior Chest Urine 600 490 40 Other: Voiding Method Indwelling Catheter Indwelling Catheter ABP, PAP, CO, CI - Last Documented Arterial Blood Pressure 190/89 - Exam GENERAL EXAM: Sedated and malnourished 82-year-old male, comfortable on 3 L O2 nasal cannula, awake and alert and communicating. He is quite hard of hearing HEAD: Normocephalic and atraumatic EYES: Pupils are 1+ bilaterally and equal in size. Sluggish reaction to light. NOSE: Clear with pink turbinates. THROAT: No erythema or exudates. Poor dentition NECK: No masses, no JVD. CHEST: No chest wall deformity. Pectus excavatum. Right-sided thoracotomy tube hole is leaking area. The patient also has a right-sided chest tube and some subcutaneous emphysema and also seen on the right side. thoravent on the right side of the chest. Both tubes are showing persistent air leak. In terms of fluid output, the output is minimal at this point in time and this bloody. CVS: Irregular S1 and S2 normal with no audible murmur, irregular rhythm. No extra heart sounds. The patient remains in atrial fibrillation. ABDOMEN: No hepatosplenomegaly, active bowel sounds, no guarding or rigidity. SPINE: No scoliosis or deformity SKIN: No rashes CENTRAL NERVOUS SYSTEM: Awake and alert and communicating. No focal neurological deficits. Moving all 4 extremities without any limitation. EXTREMITIES: There is no peripheral edema, all 4 extremities are dusky in appearance, peripheral pulses are 1+ and intact. - Labs CBC & Chem 7: 02/24/23 06:41 02/24/23 06:41 Labs: Abnormal Lab Results - Last 24 Hours (Table) 02/23/23 02/23/23 02/23/23 Range/Units 11:39 11:50 14:11 WBC (3.8-10.6) k/uL RBC (4.30-5.90) m/uL Hgb (13.0-17.5) gm/dL Hct (39.0-53.0) % MCV (80.0-100.0) fL Neutrophils # (1.3-7.7) k/uL Lymphocytes # (1.0-4.8) k/uL ABG pCO2 53 H (35-45) mmHg ABG pO2 113 H (83-108) mmHg ABG HCO3 29 H (21-25) mmol/L ABG Total CO2 31 H (19-24) mmol/L ABG O2 Saturation 98.3 H (94-97) % Sodium (137-145) mmol/L Chloride (98-107) mmol/L Carbon Dioxide (22-30) mmol/L BUN (9-20) mg/dL Glucose (74-99) mg/dL POC Glucose (mg/dL) 189 H 145 H (70-110) mg/dL 02/23/23 02/23/23 02/24/23 Range/Units 17:48 23:55 05:58 WBC (3.8-10.6) k/uL RBC (4.30-5.90) m/uL Hgb (13.0-17.5) gm/dL Hct (39.0-53.0) % MCV (80.0-100.0) fL Neutrophils # (1.3-7.7) k/uL Lymphocytes # (1.0-4.8) k/uL ABG pCO2 (35-45) mmHg ABG pO2 (83-108) mmHg ABG HCO3 (21-25) mmol/L ABG Total CO2 (19-24) mmol/L ABG O2 Saturation (94-97) % Sodium (137-145) mmol/L Chloride (98-107) mmol/L Carbon Dioxide (22-30) mmol/L BUN (9-20) mg/dL Glucose (74-99) mg/dL POC Glucose (mg/dL) 147 H 121 H 114 H (70-110) mg/dL 02/24/23 02/24/23 Range/Units 06:41 06:41 WBC 19.6 H (3.8-10.6) k/uL RBC 3.23 L (4.30-5.90) m/uL Hgb 10.6 L (13.0-17.5) gm/dL Hct 33.3 L (39.0-53.0) % MCV 103.3 H (80.0-100.0) fL Neutrophils # 18.8 H (1.3-7.7) k/uL Lymphocytes # 0.1 L (1.0-4.8) k/uL ABG pCO2 (35-45) mmHg ABG pO2 (83-108) mmHg ABG HCO3 (21-25) mmol/L ABG Total CO2 (19-24) mmol/L ABG O2 Saturation (94-97) % Sodium 147 H (137-145) mmol/L Chloride 109 H (98-107) mmol/L Carbon Dioxide 31 H (22-30) mmol/L BUN 50 H (9-20) mg/dL Glucose 123 H (74-99) mg/dL POC Glucose (mg/dL) (70-110) mg/dL Microbiology - Last 24 Hours (Table) 02/20/23 13:50 Blood Culture Gram Stain - Preliminary Blood Blood Culture - Preliminary 02/22/23 10:48 Blood Culture - Preliminary Blood 02/22/23 09:38 Nasal Screen MRSA/MSSA - Final Nasopharyngeal Swab 02/20/23 13:35 Blood Culture Gram Stain - Final Blood Blood Culture - Final Coagulase Negative Staph Assessment and Plan Assessment: PEA cardiac arrest status post CPR and return of spontaneous circulation. Estimated down time was 1 minute. Patient was unresponsive on arrival, and ultimately intubated for airway protection. Follow-up chest CT did show development of a moderate to large sized right pneumothorax. Initial ThoraVent placement was not effective. The patient did require placement of a right thoracotomy tube, follow-up chest x-ray showed improvement of the right-sided pneumothorax. The patient also has a right-sided thoravent. The patient was extubated yesterday. The patient is awake and alert and communicating at this point in time. Hemodynamically stable, hypertensive. Right-sided pneumothorax, status post ThoraVent and then right thoracotomy tube placement. The repeat chest x-ray showed a residual pneumothorax on the right and there is persistent air leak. The patient is extubated and currently is on 3 L of oxygen by nasal cannula Suspected left lower lobe pneumonia, possibly aspiration, and septic shock. Initial hypotension has resolved after fluid resuscitation and chest tube placement. Patient is on no pressors for now. COPD exacerbation, secondary to above. Patient has known severe emphysema with an FEV1 44% of predicted, partially reversible, and reduced DLCO on PFT from 2017 Acute on chronic hypoxemic and hypercapnic respiratory failure, currently on 3 L of oxygen by nasal cannula, extubated Atrial fibrillation with controlled rate and the patient is on beta blockers with metoprolol and Eliquis. Systolic heart failure with ejection fraction of 35-40%, seems to be compensated for now Anemia, no obvious acute blood loss Lactic acidemia, improving, and the lactic acid level is normalized Right middle lobe pulmonary nodule measuring 7 mm, recommended follow-up in 3-6 months History of nonischemic cardiomyopathy with an EF of 20-25%, estimated on most recently available echocardiogram done on September,. Status post implantation of AICD Hyperlipidemia Benign essential hypertension BPH Gram-positive cocci in the blood, likely a contaminant, would like to repeat blood cultures Plan: Provide the patient incentive spirometer Persistent pneumothorax on the right in the order of 20% and the patient has chest tubes in the right lung with persistent air leak Persistent air leak through the chest tube and thoravent. Despite the air leak, the patient is oxygenating well and he has adequate ventilation Monitor the right-sided pneumothorax Continue IV Zosyn Patient is currently on a combination of bronchodilators, budesonide, for moterol, and IV Solu-Medrol Patient is hypertensive and we'll continue the metoprolol and add is no peripheral blood pressure control Bedside swallow evaluation Heparin for DVT prophylaxis Protonix for GI prophylaxis DNR/DNI CODE STATUS His baseline performance of functional status is poor. He has advanced lung disease with ongoing persistent air leak The right lung is expanded although there is residual pneumothorax. Overall condition stable. Long-term outcome is poor based on the above. Obviously not a surgical candidate regarding his right-sided pneumothorax. critical care evaluation done in > 30 min. Time with Patient: Greater than 30
[2023-02-24 11:03] VITALS: BMI 17.7
[2023-02-24 11:42] LABS: Glucose,Whole Blood 118 mg/dL (70-110)
--- NOTE | 2023-02-24 14:40 | P.PN ---
Subjective Progress Note Date: 02/24/23 Hospital Course: Patient is an 82-year-old male with atrial fibrillation, systolic congestive he art failure, COPD, hypertension, and prior AICD implantation who presented to the ER in severe respiratory distress. Patient had an out of hospital PEA arrest with CPR delivered by EMS for approximately 1 minute. On arrival there vital signs were significantly abnormal with a pulse of 144, respiratory rate of 10, and O2 sat of 84% on room air. He was emergently intubated. Initial chest x-ray showed right-sided pneumothorax. Initial EKG showed atrial fibrillation with rapid ventricular response. CT chest was completed which showed moderate right-sided pneumothorax, nasogastric tube in the esophagus, left long infectious or inflammatory process, right middle lobe pulmonary nodule, severe emphysematous changes, severe atherosclerosis, and colonic diverticulosis. Patient had a right-sided thoravent placed and then a chest tube. Initial laboratory analysis was remarkable for white blood cell count 11.7, hemoglobin 8.5, BUN 49, lactic acid 2.1, blood sugar 190. COVID-19 testing was negative. BNP was elevated at 3400. Initial troponin was negative at 0.012. Patient was started on bronchodilators, Zosyn, and was subsequently admitted to the ICU. He did require levophed for less than 24 hours. Critical care was consulted. Cardiology was consulted for A. fib. Patient had worsening of their pneumothorax after removal of the thoravent. Thoravent was replaced into the right chest cavity on the morning of 02/22/23. Echocardiogram ejection fraction 35-40%, moderate pulmonary hypertension, moderate tricuspid regurgitation. Patient is now extubated. Patient was also in A. fib RVR, was started on amiodarone, now switch to oral beta blockers. Subjective: Patient seen and examined at bedside. No acute events overnight. Currently on NC. Pertinent positives and negatives as discussed above, a complete review of systems was performed and all other systems are negative. Vitals Signs Reviewed. General: nontoxic, no distress, appears at stated age Derm: warm, dry Head: atraumatic, normocephalic, symmetric Eyes: EOMI, anicteric sclera Mouth: no lip lesion, mucus membranes moist Cardiovascular: S1S2 reg, no murmur Lungs: CTA bilateral, no rhonchi, no rales , no accessory muscle use, supplemental oxygen Abdominal: soft, nontender to palpation, no guarding, no appreciable organomegaly Ext: has gross muscle atrophy, no edema, no contractures Neuro: CN II through XII grossly normal Psych: Alert, oriented Data Reviewed Today: Pertinent Labs: WBC 19.6, hemoglobin 10.6, sodium 147, creatinine 0.86, blood sugars range between 114-147 Imaging: Chest x-ray independently interpreted, right-sided pneumothorax present. Assessment and Plan: Currently in medical ICU, prognosis is guarded Right-sided pneumothorax status post thorvent and Chest tube Acute exacerbation of COPD Left sided PNA, suspected Septic shock, resolved Acute on chronic hypoxic respiratory failure, now on nasal cannula Coag ag negative staph in Blood culture like contaminant -Zosyn 3.375 g IV every 8 hours D # 5 -Continue with scheduled and when necessary DuoNeb, Pulmicort, and perforomist, on solumedrol IV -Pulmonary note reviewed: Continue supportive care Atrial fibrillation with RVR, now rate controlled Status post PEA arrest Compensated systolic congestive heart failure, LVEF 35-40% -Cardiology note reviewed: Amiodarone discontinued, started on, increase metoprolol to 50 mg twice a day -RVR likely related to pain this morning -Eliquis 2.5 mg twice daily -Lasix on hold -Lipitor 10 mg at nightly Acute metabolic encephalopathy, resolved Anemia, suspect due to chronic disease, stable -Follow CBC, no active bleeding Mild hypernatremia, likely in the setting of poor oral intake -Speech therapy consulted, patient may have silent aspiration, modified barium swallow study pending tomorrow -Repeat BMP tomorrow Chronic: Hypertension Prior myocardial infarction BPH Chronic O2 dependency at 3 L Back pain DVT ppx: eliquis Code status: Full code Anticipated discharge place: pending clinical course Anticipated discharge time: pending clinical course Objective - Vital Signs Vital signs: Vital Signs Temp 97.8 F 02/24/23 12:00 Pulse 101 H 02/24/23 13:00 Resp 12 02/24/23 13:00 BP 173/126 02/24/23 13:00 Pulse Ox 94 L 02/24/23 13:00 FiO2 40 02/23/23 12:00 Intake & Output 02/23/23 02/24/23 02/24/23 18:59 06:59 18:59 Intake Total 516.007 353 41 Output Total 627 515 615 Balance -110.993 -162 -574 Weight 57.7 kg Intake: IV 406 353 41 Art Line 36 33 21 Piperacillin-Tazobactam 3 100 .375 gm In Sodium Chloride 0.9% 100 ml @ 25 mls/hr IVPB Q8H [facility] Rx#: [id number] Sodium Chloride 0.9% 1, 370 220 20 000 ml @ 75 mls/hr IV . [id number] [facility] Rx#:[id number] Intake, IV Titration 90.007 Amount propofoL 1,000 mg In 90.007 Empty Bag 1 bag @ 15 MCG/ KG/MIN 4.858 mls/hr IV . [id number] [facility] Rx#:[id number] Tube Feeding 20 Output: Chest Tube Drainage 27 25 Chest Tube Upper Lateral 10 5 Chest Thora-Vent Right Upper 17 20 Anterior Chest Urine 600 490 615 Other: Voiding Method Indwelling Catheter Indwelling Catheter Indwelling Catheter ABP, PAP, CO, CI - Last Documented Arterial Blood Pressure 158/74 - Labs CBC & Chem 7: 02/24/23 06:41 02/24/23 06:41 Labs: Abnormal Lab Results - Last 24 Hours (Table) 02/23/23 02/23/23 02/24/23 Range/Units 17:48 23:55 05:58 WBC (3.8-10.6) k/uL RBC (4.30-5.90) m/uL Hgb (13.0-17.5) gm/dL Hct (39.0-53.0) % MCV (80.0-100.0) fL Neutrophils # (1.3-7.7) k/uL Lymphocytes # (1.0-4.8) k/uL Sodium (137-145) mmol/L Chloride (98-107) mmol/L Carbon Dioxide (22-30) mmol/L BUN (9-20) mg/dL Glucose (74-99) mg/dL POC Glucose (mg/dL) 147 H 121 H 114 H (70-110) mg/dL 02/24/23 02/24/23 02/24/23 Range/Units 06:41 06:41 11:41 WBC 19.6 H (3.8-10.6) k/uL RBC 3.23 L (4.30-5.90) m/uL Hgb 10.6 L (13.0-17.5) gm/dL Hct 33.3 L (39.0-53.0) % MCV 103.3 H (80.0-100.0) fL Neutrophils # 18.8 H (1.3-7.7) k/uL Lymphocytes # 0.1 L (1.0-4.8) k/uL Sodium 147 H (137-145) mmol/L Chloride 109 H (98-107) mmol/L Carbon Dioxide 31 H (22-30) mmol/L BUN 50 H (9-20) mg/dL Glucose 123 H (74-99) mg/dL POC Glucose (mg/dL) 118 H (70-110) mg/dL Microbiology - Last 24 Hours (Table) 02/20/23 13:50 Blood Culture Gram Stain - Preliminary Blood Blood Culture - Preliminary 02/22/23 10:48 Blood Culture - Preliminary Blood 02/22/23 09:38 Nasal Screen MRSA/MSSA - Final Nasopharyngeal Swab 02/20/23 13:35 Blood Culture Gram Stain - Final Blood Blood Culture - Final Coagulase Negative Staph
--- NOTE | 2023-02-24 15:45 | XR ---
EXAMINATION TYPE: XR chest 1V DATE OF EXAM: 02/24/2023 COMPARISON: Earlier today HISTORY: 82 year-old male shortness of breath TECHNIQUE: Single frontal view of the chest is obtained. FINDINGS: Left anterior chest wall AICD generator with right ventricular lead. Heart upper limits of normal in size. There are small bilateral pleural effusions which persist. Retrocardiac opacity may be slightly increased. Extensive subcutaneous emphysema persists on the right and to lesser extent on the left. Right-sided chest tube and right-sided Thoravent catheter remain in place. There is an inc reasing, now large right-sided pneumothorax estimated at 70%. Possible trace 9 mm left apical pneumot horax. IMPRESSION: 1. Right-sided chest tube and right-sided Thoravent catheter remain in place. There is an enlarging, now large right-sided pneumothorax estimated at 70%. 2. Possible trace 9 mm left apical pneumothorax now noted. 3. Ongoing small pleural effusions with adjacent atelectasis and or consolidation. Increasing retroca rdiac opacity on the left.
[2023-02-24] MEDS: ATORVASTATIN 20 MG TAB PO SCH (20:32)
[2023-02-25] MEDS: methylPREDNISolone SOD SUCCI 40 MG/ML 1 ML VIAL IV SCH ×4 (00:22→17:27)
[2023-02-25 00:56] LABS: Glucose,Whole Blood 123 mg/dL (70-110)
[2023-02-25] MEDS: INSULIN ASPART (NovoLOG) 100 UNIT/ML VIAL SQ SCH ×4 (01:01→17:35)
[2023-02-25] MEDS: PIPERACILLIN-TAZOBACTAM 3.375 GM in SODIUM CHLORIDE 0.9% 100 ML IVPB SCH ×3 (01:15→17:28)
[2023-02-25] MEDS: HYDROmorphone 0.5 MG/0.5 ML SYRINGE IVP PRN ×6 (03:09→22:23)
[2023-02-25 05:09] LABS: Basophils % (A) 0 %; Eosinophils % (A) 0 %; HCT 32.8 % (39.0-53.0); HGB 10.4 gm/dL (13.0-17.5); Hypochromasia Moderate; Lymphocytes # (A) 0.2 k/uL (1.0-4.8); Lymphocytes % (A) 1 %; MCH 32.3 pg (25.0-35.0); MCHC 31.8 g/dL (31.0-37.0); MCV 101.8 fL (80.0-100.0); Macrocytosis Slight; Mean Platelet Volume 11.3; Monocytes # (A) 0.4 k/uL (0-1.0); Monocytes % (A) 2 %; Neutrophils # (A) 15.2 k/uL (1.3-7.7); Neutrophils % (A) 96 %; Platelet Count 138 k/uL (150-450); RBC 3.23 m/uL (4.30-5.90); RDW 14.1 % (11.5-15.5); WBC 15.8 k/uL (3.8-10.6)
[2023-02-25 05:29] LABS: African American GFR (CKD) >90 (>60 ml/min/1.73 sqM); Anion Gap 1 mmol/L; Blood Urea Nitrogen 44 mg/dL (9-20); Calcium 8.5 mg/dL (8.4-10.2); Carbon Dioxide 38 mmol/L (22-30); Chloride 108 mmol/L (98-107); Glucose 119 mg/dL (74-99); Non-African American GFR(CKD) 80 (>60 ml/min/1.73 sqM); Potassium 4.3 mmol/L (3.5-5.1); Sodium 147 mmol/L (137-145)
[2023-02-25 06:12] LABS: Glucose,Whole Blood 116 mg/dL (70-110)
--- NOTE | 2023-02-25 07:12 | P.PN ---
Subjective Progress Note Date: 02/25/23 PROGRESS NOTE The patient is an 82-year-old male with a known history of severe nonischemic cardiomyopathy, post cardiac catheterization in 2013, chronic persistent atrial fibrillation, status post ICD implantation and severe COPD who presented with symptoms of progressive dyspnea in route to the hospital he had PEA cardiac arrest underwent CPR was intubated and was found to have evidence of moderate ri ght sided pneumothorax. He underwent placement of ThoraVent and chest tube.. He was in atrial fibrillation. Initially he was on vasopressors was subsequently stopped. Patient has a known history of significant COPD with FEV1 of 44%. He is sedated, intubated, in atrial fibrillation. His ventricular rate is controlled. His blood pressure is stable and his urinary output is stable. On presentation his troponin was normal and his NT proBNP was 3400. His plasma lactic acid was elevated. He had no evidence of ventricular ectopic activity. It is unclear when he was evaluated in the office last time. February 22 The patient remains intubated, he continues to have the from has chest tube was persistent pneumothorax. He has placement of another tube. He continues to be in atrial fibrillation with controlled ventricular response. The patient has a known history of severe COPD. He has a known history of cardiomyopathy. He had an echocardiogram that showed an ejection fraction of 35-40% with moderate pulmonary hypertension and moderate tricuspid regurgitation. The study was suboptimal. February 23: The patient remains intubated and sedated. He is in atrial fibrillation with controlled ventricular response. His heart rate was up slightly earlier but back in the 80s to 90s. He is on no vasopressors. He continues to have air leak through his chest tube. There is no evidence of ventricular ectopic activity. His urine output stable. He underwent placement of a Thoravent yesterday. His chest x-ray shows improvement in his pneumothorax. February 24: The patient is extubated, feels better, continues to be in atrial fibrillation, had episodes of rapid ventricle response. He was started on IV amiodarone. His urine output has been stable. He continues to have a chest tube and Thoravent. Subcutaneous emphysema is noted. He denies any chest discomfort, nausea or vomiting. He is on no vasopressors. February 25: The patient is more dyspneic today, his chest x-ray shows expansion of his right pneumothorax with collapse of the lung. He is on nonrebreather. He continues to be in atrial fibrillation with controlled ventricular response. He is awake but feels weak. He denies any chest discomfort. He is on no vasopressors. The family decided on DO NOT RESUSCITATE status. Medications: Metoprolol 50 mg twice a, Lipitor 20 mg daily, Eliquis 2.5 mg twice a day, Solu-Medrol, lisinopril 5 mg twice a day PHYSICAL EXAMINATION: Blood pressure 174/80 heart rate 90, alert and oriented LUNGS: Decreased air exchange, more on the right side, chest tube in place, subcutaneous emphysema HEART: Irregular rate and rhythm, S1, S2. No S3. Systolic Ejection murmur, ICD in the left subclavian area ABDOMEN: Soft, positive bowel sounds, no organomegaly EXTREMETIES: No edema LAB: Hemoglobin 10.4, WBC 15.8, BUN 44, creatinine 0.85, potassium 4.3 IMPRESSION: 1. Cardiac arrest with recurrent PEA, stable at this time, stable 2. Respiratory failure with spontaneous right sided thorax, extubated, with recurrent pneumothorax in spite of chest tube and Thoravent 3. Chronic persistent atrial fibrillation, anticoagulated, with episodes of rapid ventricle response, rate control at this point 4. Nonischemic cardiomyopathy, post ICD 5. Hypertension PLAN: 1. From the cardiac standpoint continue on the present therapy 2. Prognosis is poor because of the recurrent pneumothorax. Patient is not a candidate for surgical intervention 3. The elevated blood pressure is related to the lung status I will continue on present regimen at this time. Objective - Vital Signs Vital signs: Vital Signs Temp 98 F 02/25/23 04:00 Pulse 102 H 02/25/23 07:00 Resp 12 02/25/23 07:00 BP 186/96 02/25/23 07:00 Pulse Ox 99 02/25/23 07:00 FiO2 40 02/23/23 12:00 Intake & Output 02/24/23 02/25/23 02/25/23 18:59 06:59 18:59 Intake Total 56 346 13 Output Total 940 1055 100 Balance -884 -709 -87 Weight 57.7 kg Intake: IV 56 346 13 Art Line 36 36 3 Piperacillin-Tazobactam 3 200 .375 gm In Sodium Chloride 0.9% 100 ml @ 25 mls/hr IVPB Q8H [facility] Rx#: [id number] Sodium Chloride 0.9% 1, 20 110 10 000 ml @ 75 mls/hr IV . [id number] [facility] Rx#:[id number] Output: Chest Tube Drainage 50 Chest Tube Upper Lateral 25 Chest Thora-Vent Right Upper 25 Anterior Chest Urine 940 1005 100 Other: Voiding Method Indwelling Catheter Indwelling Catheter ABP, PAP, CO, CI - Last Documented Arterial Blood Pressure 174/87 - Labs CBC & Chem 7: 02/25/23 04:57 02/25/23 04:57 Labs: Abnormal Lab Results - Last 24 Hours (Table) 02/24/23 02/24/23 02/24/23 Range/Units 06:41 06:41 11:41 WBC 19.6 H (3.8-10.6) k/uL RBC 3.23 L (4.30-5.90) m/uL Hgb 10.6 L (13.0-17.5) gm/dL Hct 33.3 L (39.0-53.0) % MCV 103.3 H (80.0-100.0) fL Plt Count (150-450) k/uL Neutrophils # 18.8 H (1.3-7.7) k/uL Lymphocytes # 0.1 L (1.0-4.8) k/uL Sodium 147 H (137-145) mmol/L Chloride 109 H (98-107) mmol/L Carbon Dioxide 31 H (22-30) mmol/L BUN 50 H (9-20) mg/dL Glucose 123 H (74-99) mg/dL POC Glucose (mg/dL) 118 H (70-110) mg/dL 02/25/23 02/25/23 02/25/23 Range/Units 00:54 04:57 04:57 WBC 15.8 H (3.8-10.6) k/uL RBC 3.23 L (4.30-5.90) m/uL Hgb 10.4 L (13.0-17.5) gm/dL Hct 32.8 L (39.0-53.0) % MCV 101.8 H (80.0-100.0) fL Plt Count 138 L (150-450) k/uL Neutrophils # 15.2 H (1.3-7.7) k/uL Lymphocytes # 0.2 L (1.0-4.8) k/uL Sodium 147 H (137-145) mmol/L Chloride 108 H (98-107) mmol/L Carbon Dioxide 38 H (22-30) mmol/L BUN 44 H (9-20) mg/dL Glucose 119 H (74-99) mg/dL POC Glucose (mg/dL) 123 H (70-110) mg/dL 02/25/23 Range/Units 06:09 WBC (3.8-10.6) k/uL RBC (4.30-5.90) m/uL Hgb (13.0-17.5) gm/dL Hct (39.0-53.0) % MCV (80.0-100.0) fL Plt Count (150-450) k/uL Neutrophils # (1.3-7.7) k/uL Lymphocytes # (1.0-4.8) k/uL Sodium (137-145) mmol/L Chloride (98-107) mmol/L Carbon Dioxide (22-30) mmol/L BUN (9-20) mg/dL Glucose (74-99) mg/dL POC Glucose (mg/dL) 116 H (70-110) mg/dL Microbiology - Last 24 Hours (Table) 02/22/23 10:48 Blood Culture - Preliminary Blood
--- NOTE | 2023-02-25 07:38 | XR ---
EXAMINATION TYPE: XR chest 1V portable DATE OF EXAM: 02/25/2023 COMPARISON: 02/24/2023 INDICATION: Pneumothorax use oxygen demands TECHNIQUE: Single frontal view of the chest is obtained. FINDINGS: The heart size is normal. The pulmonary vasculature is normal. There is a large right pneumothorax is stable from earlier exam. Right-sided chest tube is present an d a pleura vac catheter is present. Small right pleural and small left pleural effusions are present. There is an infiltrate through the right lung base. A previous right basilar pneumothorax component has resolved. Left apical pneumothor ax not evident on the current exam. Chin overlies the lung apices. Subcutaneous emphysema is present bilaterally. Pacemaker overlies the left chest. IMPRESSION: 1. Stable right upper lung field pneumothorax. A previous right lower outer pneumothorax has resolved . 2. Small bilateral pleural effusions. 3. Lines and catheters discussed above.
[2023-02-25] MEDS: BUDESONIDE 1 MG/2 ML NEBU INHALATION SCH ×2 (08:25→20:06)
[2023-02-25] MEDS: IPRATROPIUM-ALBUTEROL 3 ML NEB INHALATION SCH ×4 (08:26→20:05)
[2023-02-25] MEDS: FORMOTEROL FUMARATE 20 MCG/2 ML NEBU INHALATION SCH ×2 (08:26→20:05)
[2023-02-25] MEDS: PANTOPRAZOLE 40 MG/10 ML VIAL IV SCH (08:34)
[2023-02-25] MEDS: lisinopriL 5 MG TAB PO SCH (08:34)
[2023-02-25] MEDS: METOPROLOL TARTRATE 50 MG TAB PO SCH ×2 (08:34→20:10)
[2023-02-25] MEDS: APIXABAN 2.5 MG TABLET PO SCH ×2 (08:35→20:09)
--- NOTE | 2023-02-25 10:19 | P.PN ---
Subjective Progress Note Date: 02/25/23 I am seeing this patient in new consultation today 02/21/2023 in the emergency room post PEA cardiac arrest. Patient is a 82-year-old white male with past medical history significant for atrial fibrillation, congestive heart failure status post AICD, hypertension, COPD, BPH. Patient has followed-up in the past with Dr. Farah, but has not had any recent office visits. Patient is known to have severe emphysema with an FEV1 44% of predicted and reduced DLCO on PFT from 2017. Apparently, the patient was in some respiratory distress yesterday morning, and EMS was called. In route, he did reportedly have a PEA cardiac arrest with approximately 1 minute downtime. The patient was unresponsive and intubated in the emergency room. Initial chest x-ray showed endotracheal tube 6.4 cm above the saeid, an NG tube within the distal esophagus, bilateral pleural effusions, left basilar airspace opacity concerning for developing pneumonia, and a masslike area near the right perihilar region. The patient was hypotensive and tachycardic. A follow-up chest CT did show development of a moderate size right pneumothorax. A right ThoraVent was placed in the emergency room, without initial resolution of pneumothorax. A right thoracotomy tube was then placed with reduction in the patient's right-sided pneumothorax to less than 20%. The endotracheal tracheal tube was also adjusted, and is currently 4.8 cm above the saeid. Patient is currently intubated, and synchronous with the mechanical ventilator. No ABG was initially obtained, and I did place a right radial arterial line. Current ventilator settings are assist control, respiratory rate 20, tidal volume 350, FiO2 100%, and PEEP of 5. ABG on these settings show a pO2 greater than 400, pCO2 of 53, pH 7.42. The FiO2 will be titrated accordingly. Chest tube is to suction, and there is an intermittent air leak. Peak pressure is 28 and plateau pressure 13. Blood pressure is now hypertensive, and norepinephrine is infusing at 0.05 mcg/kg/m through a femoral central venous catheter. Norepinephrine will likely be titrated off. Heart rh ythm was atrial fibrillation with rapid ventricular rate, currently atrial fibrillation with a heart rate of 70 bpm. Propofol is infusing at 40 mcg/kg/m. The patient is sedated and synchronous with the ventilator. CBC on arrival shows evidence count of 11.7, hemoglobin 8.5, hematocrit 28.3, platelets 198. BMP on arrival shows sodium 143, potassium 5, chloride 96, serum bicarbonate 39, BUN 49, creatinine 0.84, glucose 180. No IV maintenance fluids infusing. No Archuleta catheter for accurate intake and output. Lactic acid was elevated at 3.7, and is trending down currently 2.7. Troponins less than 0.012. NT proBNP was elevated at 3400. Urinalysis was unremarkable for UTI. Negative for COVID-19. Patient has received doses of azithromycin and Rocephin. He is afebrile. Patient will be admitted to the intensive care unit once bed available. On today's evaluation of 02/22/2023, the patient is being seen for a follow-up. As mentioned, the patient is post PEA cardiac arrest along with a right-sided pneumothorax. As mentioned, the patient had a thoravent inserted with subsequent a right-sided chest tube and he had adequate expansion of the right lung. On yesterday's evaluation, and without removing the thoravent as I thought that the chest tube itself should be adequate in maintaining his lung expansion. However, after removal of the thoravent the patient developed a righ t-sided pneumothorax and he continued to have persistent air leak through the regular chest tube. The chest tube was minute related. Morning chest x-ray revealed that the patient has a at least 50% pneumothorax on the right. The chest tube is in a good location. Has developed some subcu emphysema. He does have persistent and ongoing care leak through the right-sided chest tube and the thoravent hole is also leaking. While on a mechanical ventilator, the patient is losing approximately 75 mL of air. The ventilator settings with an assist control of 20, tidal volume of 350, FiO2 of 60% with a PEEP of 5. The returning tidal volume is 275. His peak air pressures 26. Blood gas today shows a pH of 7.42 with a pCO2 of 45 and pO2 of 129. The patient's WBC count of 12.3 with a hemoglobin 10.3 and a platelet count of 172. BUN is 58 with a creatinine of 1.06 and sodium levels of 144. The preliminary blood cultures showed gram- positive cocci in clusters. The sputum sample also showed many gram-positive cocci. The patient currently is on IV Zosyn as an empiric antibiotic coverage. The patient remains on propofol for sedation which is running at 45 mcg/kg/m. The patient on bronchodilators. The patient is on steroids. His cardiac rhythm is A. fib and the rate is controlled and the patient is taken metoprolol 25 mg twice a day and he is also 90 cognition with Eliquis 2.5 mg by mouth twice a day. Note that his white cell count was done elevated. Lactic acid level is normalized down to 1.4. Covid 19 testing was negative. Legionella urine antigen has been also negative. Echocardiogram was completed yesterday and the patient was found to have moderate LV systolic dysfunction with an ejection fraction of 35-40%. Moderate tricuspid regurgitation and moderate pulmonary hypertension. No other significant abnormalities noted on the echocardiogram. Neurologically, the patient has no seizure activity. He does grimace to painful stimulation and he does withdrawal. We are going to give him a sedation holiday today and assess his underlying neurologic status. Note that since admission, computed tomography scan of the brain has not been done post cardiac arrest. 02/23/2023, the patient remains intubated on a mechanical ventilator. The patient remains on propofol at 50 mcg/kg/m. On yesterday's evaluation, he was grimacing to deep painful stimulation. This morning, there is no reaction to painful stimulation. It's possible that the patient is deeply sedated. The sedation holiday will be given to him today post cardiac arrest. At the same time, a thoravent was inserted yesterday and patient is a right-sided chest tube. Both tubes are actively leaking air and the patient is losing approximately 75 mL of his tidal volume with each breath. Despite all this, he is oxygenating well. He is on assist control mode at a rate of 20 and tidal volume is at 350 with an FiO2 of 40% with a PEEP of 5. Chest x-ray from today shows no evidence of any significant or sizable pneumothorax. There may be a small tiny right apical pneumothorax. There is also development of bilateral pleural effusions. ET tube is in a good location. There is background emp hysema. At the same time there is also extensive subcu his emphysema bilaterally more so on the right. The NG tube is also in good location. The blood gas from today shows a pH of 7.4 with a pCO2 of 46 and pO2 115. The patient is afebrile. The patient is hemodynamically stable on no pressors and the patient is on 75 mL of normal saline. He is covered with IV Zosyn. The blood culture was positive for coagulase-negative staph, a contaminant. The patient is on enteral feeding for nutritional support. Is currently on 20 mL of vital HP. His blood work from today shows a WBC count 12.5 with a hemoglobin of 9.9 and a platelet count of 132 which is lower compared to yesterday. Sodiums of 144, potassium is at 3.5, Stephen 111 with a bicarb of 28 and a BUN of 58 and a creatinine of 0.8. His cardiac rhythm is atrial fibrillation and the patient remains on anticoagulation. He is on oralEliquis 2.5 mg by mouth twice a day. He remains on bronchodilators. He remains on steroids and Solu-Medrol as the dose of 40 mg IV every 6 hours. He is on metoprolol for rate control 25 mg twice a day. 02/24/2023, the patient is awake and alert and communicating. Noted the patient was weaned off the sedation, and progressively, he was given a spontaneous breathing trial after confirming is adequate weaning parameters and the patient was subsequently extubated. He remains extubated overnight and is currently on 3 L of oxygen by nasal cannula. His breathing is nonlabored and his pulse ox is 97% on 3 L of oxygen. Repeat chest x-ray from this morning shows a right-sided pneumothorax which is in order of 20%. The patient has a right-sided chest tube and a thoravent in place and both of them show persistent air leak. He does have some presents emphysema over the chest mainly anteriorly more so on the right. No facial swelling. No use of accessory muscles of breathing. He is hemodynamically stable. In fact, he is hypertensive and the patient is currently on this is no peripheral 5 mg by mouth twice a day started today for blood pressure control. He is also metoprolol 50 mg by mouth twice a day. His underlying cardiac rhythm remains atrial fibrillation and the patient is a dequately controlled and he remains on anticoagulation with Eliquis. He remains on DuoNeb about treatments [id number]. He remains on IV Solu-Medrol 40 mg every 6 hours. He is also on antibiotic coverage with Zosyn. Family arrives and I had a lengthy discussion with the daughter at the bedside. Decided to proceed with a DNR/DNI CODE STATUS. No other active issues for now. We'll do a bedside swallow evaluation. We'll keep the right-sided chest tubes in place. Is quite weak and debilitated. He is also very hard of hearing. Nevertheless, he seems to be appropriate and he is communicating at this point in time. On 02/25/2023, the patient remains extubated, awake and alert and communicating. Is currently on oxygen at 4 L. He continues to have 2 drainage tubes in his right hemithorax and both of them are showing persistent air leaks. Repeat chest x-ray from today shows a large right-sided pneumothorax despite the ongoing leak through the chest tubes. The pneumothorax in the right upper lobe is quite stable compared to yesterday. There is also evidence of small bilater al pleural effusions. Despite the large pneumothorax, the patient is not having any active respiratory distress and the patient is hemodynamically stable. In fact his hypertensive. He is communicating. Very hard of hearing. He failed a swallow evaluation yesterday and based on that the patient was kept nothing by mouth. A repeat swallow evaluation is to be done today. His cardiac rhythm is still atrial fibrillation. He is on anticoagulation with Eliquis 2.5 mg twice a day. He remains on bronchodilators. He remains on steroids. Also, his IV fluids are currently running at [facility]. He remains on empiric antibiotic coverage with IV Zosyn. In terms of blood pressure control, he remains on metoprolol 50 mg by mouth twice a day. He was also started on lisinopril 5 mg twice a day. Blood pressure remains elevated Objective - Vital Signs Vital signs: Vital Signs Temp 97.8 F 02/25/23 08:00 Pulse 101 H 02/25/23 09:00 Resp 9 L 02/25/23 09:00 BP 156/103 02/25/23 09:00 Pulse Ox 98 02/25/23 09:00 FiO2 40 02/23/23 12:00 Intake & Output 02/24/23 02/25/23 02/25/23 18:59 06:59 18:59 Intake Total 56 346 129 Output Total 940 1055 185 Balance -884 -709 -56 Weight 57.7 kg Intake: IV 56 346 129 Art Line 36 36 9 Piperacillin-Tazobactam 3 200 100 .375 gm In Sodium Chloride 0.9% 100 ml @ 25 mls/hr IVPB Q8H [facility] Rx#: [id number] Sodium Chloride 0.9% 1, 20 110 20 000 ml @ 75 mls/hr IV . [id number] [facility] Rx#:[id number] Output: Chest Tube Drainage 50 5 Chest Tube Upper Lateral 25 5 Chest Thora-Vent Right Upper 25 0 Anterior Chest Urine 940 1005 180 Other: Voiding Method Indwelling Catheter Indwelling Catheter Indwelling Catheter ABP, PAP, CO, CI - Last Documented Arterial Blood Pressure 163/78 - Exam GENERAL EXAM: Sedated and malnourished 82-year-old male, comfortable on 3 L O2 nasal cannula, awake and alert and communicating. He is quite hard of hearing HEAD: Normocephalic and atraumatic EYES: Pupils are 1+ bilaterally and equal in size. Sluggish reaction to light. NOSE: Clear with pink turbinates. THROAT: No erythema or exudates. Poor dentition NECK: No masses, no JVD. CHEST: No chest wall deformity. Pectus excavatum. Right-sided thoracotomy tube hole is leaking area. The patient also has a right-sided chest tube and some subcutaneous emphysema and also seen on the right side. thoravent on the right side of the chest. Both tubes are showing persistent air leak. In terms of fluid output, the output is minimal at this point in time and this bloody. CVS: Irregular S1 and S2 normal with no audible murmur, irregular rhythm. No extra heart sounds. The patient remains in atrial fibrillation. ABDOMEN: No hepatosplenomegaly, active bowel sounds, no guarding or rigidity. SPINE: No scoliosis or deformity SKIN: No rashes CENTRAL NERVOUS SYSTEM: Awake and alert and communicating. No focal neurological deficits. Moving all 4 extremities without any limitation. EXTREMITIES: There is no peripheral edema, all 4 extremities are dusky in appearance, peripheral pulses are 1+ and intact. - Labs CBC & Chem 7: 02/25/23 04:57 02/25/23 04:57 Labs: Abnormal Lab Results - Last 24 Hours (Table) 02/24/23 02/25/23 02/25/23 Range/Units 11:41 00:54 04:57 WBC (3.8-10.6) k/uL RBC (4.30-5.90) m/uL Hgb (13.0-17.5) gm/dL Hct (39.0-53.0) % MCV (80.0-100.0) fL Plt Count (150-450) k/uL Neutrophils # (1.3-7.7) k/uL Lymphocytes # (1.0-4.8) k/uL Sodium 147 H (137-145) mmol/L Chloride 108 H (98-107) mmol/L Carbon Dioxide 38 H (22-30) mmol/L BUN 44 H (9-20) mg/dL Glucose 119 H (74-99) mg/dL POC Glucose (mg/dL) 118 H 123 H (70-110) mg/dL 02/25/23 02/25/23 Range/Units 04:57 06:09 WBC 15.8 H (3.8-10.6) k/uL RBC 3.23 L (4.30-5.90) m/uL Hgb 10.4 L (13.0-17.5) gm/dL Hct 32.8 L (39.0-53.0) % MCV 101.8 H (80.0-100.0) fL Plt Count 138 L (150-450) k/uL Neutrophils # 15.2 H (1.3-7.7) k/uL Lymphocytes # 0.2 L (1.0-4.8) k/uL Sodium (137-145) mmol/L Chloride (98-107) mmol/L Carbon Dioxide (22-30) mmol/L BUN (9-20) mg/dL Glucose (74-99) mg/dL POC Glucose (mg/dL) 116 H (70-110) mg/dL Microbiology - Last 24 Hours (Table) 02/22/23 10:48 Blood Culture - Preliminary Blood Assessment and Plan Assessment: PEA cardiac arrest status post CPR and return of spontaneous circulation. Estimated down time was 1 minute. Patient was unresponsive on arrival, and ult imately intubated for airway protection. Follow-up chest CT did show development of a moderate to large sized right pneumothorax. Initial ThoraVent placement was not effective. The patient did require placement of a right thoracotomy tube, follow-up chest x-ray showed improvement of the right-sided pneumothorax. The patient also has a right-sided thoravent. The patient was extubated yesterday. The patient is awake and alert and communicating at this point in time. Hemodynamically stable, hypertensive. Right-sided pneumothorax, status post ThoraVent and then right thoracotomy tube placement. The repeat chest x-ray showed a residual pneumothorax on the right large size yet stable and there is persistent air leak. The patient is extubated and currently is on 3 L of oxygen by nasal cannula. Despite the right-sided pneumothorax, the patient is not having any significant respiratory distress. No hemodynamic changes. No signs of any tension. Both of the tubes are still leaking. Suspected left lower lobe pneumonia, possibly aspiration, and septic shock. Initial hypotension has resolved after fluid resuscitation and chest tube placement. Patient is on no pressors for now. COPD exacerbation, secondary to above. Patient has known severe emphysema with an FEV1 44% of predicted, partially reversible, and reduced DLCO on PFT from 2017 Acute on chronic hypoxemic and hypercapnic respiratory failure, currently on 3 L of oxygen by nasal cannula, extubated Atrial fibrillation with controlled rate and the patient is on beta blockers with metoprolol and Eliquis. Systolic heart failure with ejection fraction of 35-40%, seems to be compensated for now Anemia, no obvious acute blood loss Lactic acidemia, improving, and the lactic acid level is normalized Right middle lobe pulmonary nodule measuring 7 mm, recommended follow-up in 3-6 months History of nonischemic cardiomyopathy with an EF of 20-25%, estimated on most recently available echocardiogram done on September,. Status post implantation of AICD Hyperlipidemia Benign essential hypertension BPH Gram-positive cocci in the blood, likely a contaminant, would like to repeat blood cultures Plan: Repeat a swallow evaluation if the patient passes were provide diet Provide the patient incentive spirometer Persistent pneumothorax on the right no need for another chest tube insertion and will do to monitoring the pneumothorax on the right. Persistent air leak through the chest tube and thoravent. Despite the air leak, the patient is oxygenating well and he has adequate ventilation Monitor the right-sided pneumothorax Continue IV Zosyn Patient is currently on a combination of bronchodilators, budesonide, formoterol, and IV Solu-Medrol Patient is hypertensive and we'll continue the metoprolol and and the patient was given lisinopril and will add Norvasc 10 mg by mouth daily and monitor the blood pressure control. Bedside swallow evaluation Heparin for DVT prophylaxis Protonix for GI prophylaxis DNR/DNI CODE STATUS Prognosis poor. Obviously the patient on a surgical candidate because of his age and significant comorbidities and his advanced lung disease. We'll continue monitoring this patient and managing him conservatively. We'll keep the tubes in place. Family is aware. I discussed the case with the daughter on multiple occasions. His cor status remains DNR/DNI. critical care evaluation done in > 30 min.
[2023-02-25] MEDS: amLODIPine 10 MG TAB PO SCH (10:27)
[2023-02-25 12:07] LABS: Glucose,Whole Blood 122 mg/dL (70-110)
[2023-02-25] MEDS ORDERED: lisinopriL 10 MG TAB PO STA (13:51)
[2023-02-25] MEDS: lisinopriL 10 MG TAB PO SCH ×2 (14:15→20:09)
--- NOTE | 2023-02-25 17:08 | P.PN ---
Subjective Progress Note Date: 02/25/23 (delayed charting seen at 0855) Patient is an 82-year-old male with atrial fibrillation, systolic congestive heart failure, COPD, hypertension, and prior AICD implantation who presented to the ER in severe respiratory distress. Patient had an out of hospital PEA arrest with CPR delivered by EMS for approximately 1 minute. On arrival there vital signs were significantly abnormal with a pulse of 144, respiratory rate of 10, and O2 sat of 84% on room air. He was emergently intubated. Initial chest x-ray showed right-sided pneumothorax. Initial EKG showed atrial fibrillation with rapid ventricular response. CT chest was completed which showed moderate right-sided pneumothorax, nasogastric tube in the esophagus, left long infectious or inflammatory process, right middle lobe pulmonary nodule, severe emphysematous changes, severe atherosclerosis, and colonic diverticulosis. Patient had a right-sided thoravent placed and then a chest tube. Initial laboratory analysis was remarkable for white blood cell count 11.7, hemoglobin 8.5, BUN 49, lactic acid 2.1, blood sugar 190. COVID-19 testing was negative. BNP was elevated at 3400. Initial troponin was negative at 0.012. Patient was started on bronchodilators, Zosyn, and was subsequently admitted to the ICU. He did require levophed for less than 24 hours. Critical care was consulted. Cardiology was consulted for Rosio philip. Patient had worsening of their pneumothorax after removal of the thoravent. Thoravent was replaced into the right chest cavity on the morning of 02/22/23. Echocardiogram ejection fraction 35-40%, moderate pulmonary hypertension, moderate tricuspid regurgitation. He was weaned from the vent on 02/23 and initially had improvement in oxygenation. His Pneumothorax got worse and chest tube and thorvaent was continued. Patient seen and examined at bedside. He denies any shortness of breath, no chest pain, no nausea, feeling hungry. Vital signs reviewed General: Ill-appearing, cachectic with temporal and buccal wasting Cardiovascular: S1S2 reg, no murmur, positive posterior tibial pulse bilateral, Lungs: Decreased bs right with crepitus over chest wall, no rhonchi, no rales ,+ accessory muscle use Abdominal: soft, nontender to palpation, no guarding, no appreciable organomegaly Ext: + gross muscle atrophy, no edema b/l lower extremities, no contractures Neuro: CN II-XII grossly intact, no focal neuro deficits. Psych: awake, alert Assessment/Plan: Right-sided pneumothorax status post thorvent and Chest tube on 02/20/23, thoravent removed on 02/21. Acute exacerbation of COPD Possible left-sided pneumonia with septic shock Acute on chronic hypoxic respiratory failure Coag ag negative staph in Blood culture confirmed contaminant -Zosyn 3.375 g IV every 8 hours D # 6 -D/W Dr. Eduardo: Poor overall prognosis, continue with current medications, continue to monitor anteriorly we both agree that patient is not a surgical candidate for things such as VATS and will need conitnued monitoring with CCT nad Thoravent given continued PTX. -Continue with scheduled and when necessary DuoNeb, Pulmicort, and periformis Atrial fibrillation Status post PEA arrest Compensated systolic congestive heart failure, last known EF 40-45% - Cardio note reviewed: BP elevated due to resp status, follow BP -Metoprolol 25 mg by mouth twice daily -Eliquis 2.5 mg twice daily has been restarted -Lasix on hold secondary to requiring fluid resuscitation -Lipitor 10 mg at nightly Anemia, suspect due to chronic disease -Follow CBC Chronic: Hypertension Prior myocardial infarction BPH Chronic O2 dependency at 3 L Back pain Imaging: CXR reviewed by myself with persistent right sided PTX of greater than 50% Echocardiogram ejection fraction 35-40%, moderate pulmonary hypertension, moderate tricuspid regurgitation Data Review: Vitals temperature 97.8 pulse 108, respirations 11, blood pressure 155/85, O2 sat 98% on 6 L Labs reviewed and white blood cell count 15.8, hemoglobin 10.4, platelets 138, sodium 147, BUN 44, creatinine 0.85 DVT prophylaxis: SCDs Anticipated discharge date: Pending Clinical Course Anticipated discharge place: Pending Clinical Course This dictation was prepared using [employer] voice recognition software. Though every attempt is made to correct errors during dictation some may still exist. Objective - Vital Signs Vital signs: Vital Signs Temp 98.3 F 02/25/23 16:00 Pulse 98 02/25/23 16:00 Resp 10 L 02/25/23 16:00 BP 170/107 02/25/23 14:00 Pulse Ox 99 02/25/23 16:00 FiO2 40 02/23/23 12:00 Intake & Output 02/24/23 02/25/23 02/25/23 18:59 06:59 18:59 Intake Total 56 346 180 Output Total 940 1055 617 [facility] -[phone] Weight 57.7 kg 57.7 kg Intake: IV 56 346 180 Art Line 36 36 30 Piperacillin-Tazobactam 3 200 100 .375 gm In Sodium Chloride 0.9% 100 ml @ 25 mls/hr IVPB Q8H [facility] Rx#: [id number] Sodium Chloride 0.9% 1, 20 110 50 000 ml @ 75 mls/hr IV . [id number] [facility] Rx#:[id number] Output: Chest Tube Drainage 50 27 Chest Tube Upper Lateral 25 9 Chest Thora-Vent Right Upper 25 18 Anterior Chest Urine 940 1005 590 Other: Voiding Method Indwelling Catheter Indwelling Catheter Indwelling Catheter ABP, PAP, CO, CI - Last Documented Arterial Blood Pressure 154/74 - Labs CBC & Chem 7: 02/25/23 04:57 02/25/23 04:57 Labs: Abnormal Lab Results - Last 24 Hours (Table) 02/25/23 02/25/23 02/25/23 Range/Units 00:54 04:57 04:57 WBC 15.8 H (3.8-10.6) k/uL RBC 3.23 L (4.30-5.90) m/uL Hgb 10.4 L (13.0-17.5) gm/dL Hct 32.8 L (39.0-53.0) % MCV 101.8 H (80.0-100.0) fL Plt Count 138 L (150-450) k/uL Neutrophils # 15.2 H (1.3-7.7) k/uL Lymphocytes # 0.2 L (1.0-4.8) k/uL Sodium 147 H (137-145) mmol/L Chloride 108 H (98-107) mmol/L Carbon Dioxide 38 H (22-30) mmol/L BUN 44 H (9-20) mg/dL Glucose 119 H (74-99) mg/dL POC Glucose (mg/dL) 123 H (70-110) mg/dL 02/25/23 02/25/23 Range/Units 06:09 12:05 WBC (3.8-10.6) k/uL RBC (4.30-5.90) m/uL Hgb (13.0-17.5) gm/dL Hct (39.0-53.0) % MCV (80.0-100.0) fL Plt Count (150-450) k/uL Neutrophils # (1.3-7.7) k/uL Lymphocytes # (1.0-4.8) k/uL Sodium (137-145) mmol/L Chloride (98-107) mmol/L Carbon Dioxide (22-30) mmol/L BUN (9-20) mg/dL Glucose (74-99) mg/dL POC Glucose (mg/dL) 116 H 122 H (70-110) mg/dL Microbiology - Last 24 Hours (Table) 02/22/23 10:48 Blood Culture - Preliminary Blood
[2023-02-25 17:34] LABS: Glucose,Whole Blood 114 mg/dL (70-110)
[2023-02-25 18:03] LABS: Glucose,Whole Blood 102 mg/dL (70-110)
[2023-02-25] MEDS: ATORVASTATIN 20 MG TAB PO SCH (20:09)
[2023-02-25] MEDS ORDERED: lisinopriL 10 MG TAB PO SCH (21:00)
[2023-02-26 00:38] LABS: Glucose,Whole Blood 145 mg/dL (70-110)
[2023-02-26] MEDS: INSULIN ASPART (NovoLOG) 100 UNIT/ML VIAL SQ SCH ×3 (01:03→11:46)
[2023-02-26] MEDS: methylPREDNISolone SOD SUCCI 40 MG/ML 1 ML VIAL IV SCH ×2 (01:12→05:21)
[2023-02-26] MEDS: PIPERACILLIN-TAZOBACTAM 3.375 GM in SODIUM CHLORIDE 0.9% 100 ML IVPB SCH ×2 (02:58→09:46)
[2023-02-26 05:16] LABS: Glucose,Whole Blood 129 mg/dL (70-110)
[2023-02-26] MEDS: HYDROmorphone 0.5 MG/0.5 ML SYRINGE IVP PRN ×2 (05:21→11:47)
--- NOTE | 2023-02-26 06:56 | XR ---
EXAMINATION TYPE: XR chest 1V portable DATE OF EXAM: 02/26/2023 COMPARISON: 02/25/2023 HISTORY: Follow-up pneumothorax TECHNIQUE: Single frontal view of the chest is obtained. FINDINGS: There is a right sided chest tube and a thoracic vent in place. The right pneumothorax has decreased in size significantly with no significant pneumothorax of moderate size persists. There is a single lead cardiac pacemaker and no cardiomegaly or pulmonary vascular congestion. There are persistent bibasilar infiltrates and small effusions essentially unchanged compared to previous. IMPRESSION: Persistent moderate right pneumothorax which has decreased increased in size significantly since the prior study as described above. Persistent bibasilar pleural effusions and infiltrates unchanged.
[2023-02-26 08:27] LABS: HCT 36.7 % (39.0-53.0); HGB 11.1 gm/dL (13.0-17.5); Hypochromasia Moderate; MCH 31.1 pg (25.0-35.0); MCHC 30.3 g/dL (31.0-37.0); MCV 102.7 fL (80.0-100.0); Macrocytosis Slight; Mean Platelet Volume 10.6; Platelet Count 209 k/uL (150-450); RBC 3.58 m/uL (4.30-5.90); RDW 13.8 % (11.5-15.5); WBC 25.7 k/uL (3.8-10.6)
--- NOTE | 2023-02-26 08:28 | P.PN ---
Subjective Progress Note Date: 02/26/23 I am seeing this patient in new consultation today 02/21/2023 in the emergency room post PEA cardiac arrest. Patient is a 82-year-old white male with past medical history significant for atrial fibrillation, congestive heart failure status post AICD, hypertension, COPD, BPH. Patient has followed-up in the past with Dr. Farah, but has not had any recent office visits. Patient is known to have severe emphysema with an FEV1 44% of predicted and reduced DLCO on PFT from 2017. Apparently, the patient was in some respiratory distress yesterday morning, and EMS was called. In route, he did reportedly have a PEA cardiac arrest with approximately 1 minute downtime. The patient was unresponsive and intubated in the emergency room. Initial chest x-ray showed endotracheal tube 6.4 cm above the saeid, an NG tube within the distal esophagus, bilateral pleural effusions, left basilar airspace opacity concerning for developing pneumonia, and a masslike area near the right perihilar region. The patient was hypotensive and tachycardic. A follow-up chest CT did show development of a moderate size right pneumothorax. A right ThoraVent was placed in the emergency room, without initial resolution of pneumothorax. A right thoracotomy tube was then placed with reduction in the patient's right-sided pneumothorax to less than 20%. The endotracheal tracheal tube was also adjusted, and is currently 4.8 cm above the saeid. Patient is currently intubated, and synchronous with the mechanical ventilator. No ABG was initially obtained, and I did place a right radial arterial line. Current ventilator settings are assist control, respiratory rate 20, tidal volume 350, FiO2 100%, and PEEP of 5. ABG on these settings show a pO2 greater than 400, pCO2 of 53, pH 7.42. The FiO2 will be titrated accordingly. Chest tube is to suction, and there is an intermittent air leak. Peak pressure is 28 and plateau pressure 13. Blood pressure is now hypertensive, and norepinephrine is infusing at 0.05 mcg/kg/m through a femoral central venous catheter. Norepinephrine will likely be titrated off. Heart rh ythm was atrial fibrillation with rapid ventricular rate, currently atrial fibrillation with a heart rate of 70 bpm. Propofol is infusing at 40 mcg/kg/m. The patient is sedated and synchronous with the ventilator. CBC on arrival shows evidence count of 11.7, hemoglobin 8.5, hematocrit 28.3, platelets 198. BMP on arrival shows sodium 143, potassium 5, chloride 96, serum bicarbonate 39, BUN 49, creatinine 0.84, glucose 180. No IV maintenance fluids infusing. No Archuleta catheter for accurate intake and output. Lactic acid was elevated at 3.7, and is trending down currently 2.7. Troponins less than 0.012. NT proBNP was elevated at 3400. Urinalysis was unremarkable for UTI. Negative for COVID-19. Patient has received doses of azithromycin and Rocephin. He is afebrile. Patient will be admitted to the intensive care unit once bed available. On today's evaluation of 02/22/2023, the patient is being seen for a follow-up. As mentioned, the patient is post PEA cardiac arrest along with a right-sided pneumothorax. As mentioned, the patient had a thoravent inserted with subsequent a right-sided chest tube and he had adequate expansion of the right lung. On yesterday's evaluation, and without removing the thoravent as I thought that the chest tube itself should be adequate in maintaining his lung expansion. However, after removal of the thoravent the patient developed a righ t-sided pneumothorax and he continued to have persistent air leak through the regular chest tube. The chest tube was minute related. Morning chest x-ray revealed that the patient has a at least 50% pneumothorax on the right. The chest tube is in a good location. Has developed some subcu emphysema. He does have persistent and ongoing care leak through the right-sided chest tube and the thoravent hole is also leaking. While on a mechanical ventilator, the patient is losing approximately 75 mL of air. The ventilator settings with an assist control of 20, tidal volume of 350, FiO2 of 60% with a PEEP of 5. The returning tidal volume is 275. His peak air pressures 26. Blood gas today shows a pH of 7.42 with a pCO2 of 45 and pO2 of 129. The patient's WBC count of 12.3 with a hemoglobin 10.3 and a platelet count of 172. BUN is 58 with a creatinine of 1.06 and sodium levels of 144. The preliminary blood cultures showed gram- positive cocci in clusters. The sputum sample also showed many gram-positive cocci. The patient currently is on IV Zosyn as an empiric antibiotic coverage. The patient remains on propofol for sedation which is running at 45 mcg/kg/m. The patient on bronchodilators. The patient is on steroids. His cardiac rhythm is A. fib and the rate is controlled and the patient is taken metoprolol 25 mg twice a day and he is also 90 cognition with Eliquis 2.5 mg by mouth twice a day. Note that his white cell count was done elevated. Lactic acid level is normalized down to 1.4. Covid 19 testing was negative. Legionella urine antigen has been also negative. Echocardiogram was completed yesterday and the patient was found to have moderate LV systolic dysfunction with an ejection fraction of 35-40%. Moderate tricuspid regurgitation and moderate pulmonary hypertension. No other significant abnormalities noted on the echocardiogram. Neurologically, the patient has no seizure activity. He does grimace to painful stimulation and he does withdrawal. We are going to give him a sedation holiday today and assess his underlying neurologic status. Note that since admission, computed tomography scan of the brain has not been done post cardiac arrest. 02/23/2023, the patient remains intubated on a mechanical ventilator. The patient remains on propofol at 50 mcg/kg/m. On yesterday's evaluation, he was grimacing to deep painful stimulation. This morning, there is no reaction to painful stimulation. It's possible that the patient is deeply sedated. The sedation holiday will be given to him today post cardiac arrest. At the same time, a thoravent was inserted yesterday and patient is a right-sided chest tube. Both tubes are actively leaking air and the patient is losing approximately 75 mL of his tidal volume with each breath. Despite all this, he is oxygenating well. He is on assist control mode at a rate of 20 and tidal volume is at 350 with an FiO2 of 40% with a PEEP of 5. Chest x-ray from today shows no evidence of any significant or sizable pneumothorax. There may be a small tiny right apical pneumothorax. There is also development of bilateral pleural effusions. ET tube is in a good location. There is background emp hysema. At the same time there is also extensive subcu his emphysema bilaterally more so on the right. The NG tube is also in good location. The blood gas from today shows a pH of 7.4 with a pCO2 of 46 and pO2 115. The patient is afebrile. The patient is hemodynamically stable on no pressors and the patient is on 75 mL of normal saline. He is covered with IV Zosyn. The blood culture was positive for coagulase-negative staph, a contaminant. The patient is on enteral feeding for nutritional support. Is currently on 20 mL of vital HP. His blood work from today shows a WBC count 12.5 with a hemoglobin of 9.9 and a platelet count of 132 which is lower compared to yesterday. Sodiums of 144, potassium is at 3.5, Stephen 111 with a bicarb of 28 and a BUN of 58 and a creatinine of 0.8. His cardiac rhythm is atrial fibrillation and the patient remains on anticoagulation. He is on oralEliquis 2.5 mg by mouth twice a day. He remains on bronchodilators. He remains on steroids and Solu-Medrol as the dose of 40 mg IV every 6 hours. He is on metoprolol for rate control 25 mg twice a day. 02/24/2023, the patient is awake and alert and communicating. Noted the patient was weaned off the sedation, and progressively, he was given a spontaneous breathing trial after confirming is adequate weaning parameters and the patient was subsequently extubated. He remains extubated overnight and is currently on 3 L of oxygen by nasal cannula. His breathing is nonlabored and his pulse ox is 97% on 3 L of oxygen. Repeat chest x-ray from this morning shows a right-sided pneumothorax which is in order of 20%. The patient has a right-sided chest tube and a thoravent in place and both of them show persistent air leak. He does have some presents emphysema over the chest mainly anteriorly more so on the right. No facial swelling. No use of accessory muscles of breathing. He is hemodynamically stable. In fact, he is hypertensive and the patient is currently on this is no peripheral 5 mg by mouth twice a day started today for blood pressure control. He is also metoprolol 50 mg by mouth twice a day. His underlying cardiac rhythm remains atrial fibrillation and the patient is a dequately controlled and he remains on anticoagulation with Eliquis. He remains on DuoNeb about treatments [id number]. He remains on IV Solu-Medrol 40 mg every 6 hours. He is also on antibiotic coverage with Zosyn. Family arrives and I had a lengthy discussion with the daughter at the bedside. Decided to proceed with a DNR/DNI CODE STATUS. No other active issues for now. We'll do a bedside swallow evaluation. We'll keep the right-sided chest tubes in place. Is quite weak and debilitated. He is also very hard of hearing. Nevertheless, he seems to be appropriate and he is communicating at this point in time. On 02/25/2023, the patient remains extubated, awake and alert and communicating. Is currently on oxygen at 4 L. He continues to have 2 drainage tubes in his right hemithorax and both of them are showing persistent air leaks. Repeat chest x-ray from today shows a large right-sided pneumothorax despite the ongoing leak through the chest tubes. The pneumothorax in the right upper lobe is quite stable compared to yesterday. There is also evidence of small bilater al pleural effusions. Despite the large pneumothorax, the patient is not having any active respiratory distress and the patient is hemodynamically stable. In fact his hypertensive. He is communicating. Very hard of hearing. He failed a swallow evaluation yesterday and based on that the patient was kept nothing by mouth. A repeat swallow evaluation is to be done today. His cardiac rhythm is still atrial fibrillation. He is on anticoagulation with Eliquis 2.5 mg twice a day. He remains on bronchodilators. He remains on steroids. Also, his IV fluids are currently running at [facility]. He remains on empiric antibiotic coverage with IV Zosyn. In terms of blood pressure control, he remains on metoprolol 50 mg by mouth twice a day. He was also started on lisinopril 5 mg twice a day. Blood pressure remains elevated 02/26/2023, the patient remains extubated, profoundly weak, unable to pass a swallow test and unable to swallow as the patient chokes on any form of oral material taken. As such, he was kept nothing by mouth. He has declined any form of enteral feeding. As such, we have not inserted an NG tube or a Dobbhoff. No plans for a PEG tube insertion also. He is on oxygen at 4 L. The chest x-ray still showing a 30% pneumothorax on the right and evidence of subcutaneous emphysema. The right-sided chest tube and the tjoravent leaking. There is significant amount of ongoing leak which is persistent and both tubes are functional. No hemodynamic instability. Remains in atrial fibrillation. Remains on anticoagulation. Remains on Eliquis 2.5 mg twice a day. Remains on metoprolol 50 mg twice day for rate control. He is also on lisinopril and Norvasc for blood pressure control. He has hard of hearing. His able to communicate. No focal neurological deficits. Significant motor weakness. Discussion was done with the family and they clearly understand that the long- term outcome on this patient is quite poor as the patient's baseline performance of functional status has been poor. He had declined to come into the hospital and he was at home sick for at least 6 days prior to him coming in. Labs are still pending for now. The chest x-ray however was reviewed and there is obvious 30% pneumothorax. Blood pressures under better control. We're going to give the antihypertensive medication today and monitor the blood pressure and make further adjustments if needed. He remains on IV Zosyn. Objective - Vital Signs Vital signs: Vital Signs Temp 97.6 F 02/26/23 04:00 Pulse 98 02/26/23 07:00 Resp 19 02/26/23 07:00 BP 159/106 02/26/23 07:00 Pulse Ox 95 02/26/23 07:00 FiO2 40 02/23/23 12:00 Intake & Output 02/25/23 02/26/23 02/26/23 18:59 06:59 18:59 Intake Total 337 136 Output Total 847 780 Balance -510 -644 Weight 57.7 kg Intake: IV 219 36 Art Line 39 36 Piperacillin-Tazobactam 3 100 .375 gm In Sodium Chloride 0.9% 100 ml @ 25 mls/hr IVPB Q8H [facility] Rx#: [id number] Sodium Chloride 0.9% 1, 80 000 ml @ 75 mls/hr IV . [id number] [facility] Rx#:[id number] Oral 118 100 Output: Chest Tube Drainage 27 30 Chest Tube Upper Lateral 9 15 Chest Thora-Vent Right Upper 18 15 Anterior Chest Urine 820 750 Other: Voiding Method Indwelling Catheter Indwelling Catheter ABP, PAP, CO, CI - Last Documented Arterial Blood Pressure 165/83 - Exam GENERAL EXAM: Sedated and malnourished 82-year-old male, comfortable on 3 L O2 nasal cannula, awake and alert and communicating. He is quite hard of hearing HEAD: Normocephalic and atraumatic EYES: Pupils are 1+ bilaterally and equal in size. Sluggish reaction to light. NOSE: Clear with pink turbinates. THROAT: No erythema or exudates. Poor dentition NECK: No masses, no JVD. CHEST: No chest wall deformity. Pectus excavatum. Right-sided thoracotomy tube hole is leaking area. The patient also has a right-sided chest tube and some subcutaneous emphysema and also seen on the right side. thoravent on the right side of the chest. Both tubes are showing persistent air leak. In terms of fluid output, the output is minimal at this point in time and this bloody. CVS: Irregular S1 and S2 normal with no audible murmur, irregular rhythm. No extra heart sounds. The patient remains in atrial fibrillation. ABDOMEN: No hepatosplenomegaly, active bowel sounds, no guarding or rigidity. SPINE: No scoliosis or deformity SKIN: No rashes CENTRAL NERVOUS SYSTEM: Awake and alert and communicating. No focal neurologi farnaz deficits. Moving all 4 extremities without any limitation. EXTREMITIES: There is no peripheral edema, all 4 extremities are dusky in appearance, peripheral pulses are 1+ and intact. - Labs CBC & Chem 7: 02/25/23 04:57 02/25/23 04:57 Labs: Abnormal Lab Results - Last 24 Hours (Table) 02/25/23 02/25/23 02/26/23 Range/Units 12:05 17:32 00:36 POC Glucose (mg/dL) 122 H 114 H 145 H (70-110) mg/dL 02/26/23 Range/Units 05:15 POC Glucose (mg/dL) 129 H (70-110) mg/dL Microbiology - Last 24 Hours (Table) 02/22/23 10:48 Blood Culture - Preliminary Blood Assessment and Plan Assessment: PEA cardiac arrest status post CPR and return of spontaneous circulation. Estimated down time was 1 minute. Patient was unresponsive on arrival, and ultimately intubated for airway protection. Follow-up chest CT did show development of a moderate to large sized right pneumothorax. Initial ThoraVent placement was not effective. The patient did require placement of a right thoracotomy tube, follow-up chest x-ray showed improvement of the right-sided pneumothorax. The patient also has a right-sided thoravent. The patient was extubated yesterday. The patient is awake and alert and communicating at this point in time. Hemodynamically stable, hypertensive. Remains profoundly weak. Unable to pass a swallow test and as such the patient was kept nothing by mouth. Unable to feed the patient and the patient has declined any form of enteral nutrition via Dobbhoff with a PEG tube or NG tube. Right-sided pneumothorax, status post ThoraVent and then right thoracotomy tube placement. The patient is extubated and currently is on 3 L of oxygen by nasal cannula. Despite the right-sided pneumothorax, the patient is not having any significant respiratory distress. No hemodynamic changes. No signs of any tension. Both of the tubes are still leaking. There is a 30% pneumothorax on the right, slightly improved compared to yesterday, airleak is persistent. Suspected left lower lobe pneumonia, possibly aspiration, and septic shock. Initial hypotension has resolved after fluid resuscitation and chest tube placement. Patient is on no pressors for now. COPD exacerbation, secondary to above. Patient has known severe emphysema with an FEV1 44% of predicted, partially reversible, and reduced DLCO on PFT from 20 17 Acute on chronic hypoxemic and hypercapnic respiratory failure, currently on 3 L of oxygen by nasal cannula, extubated Atrial fibrillation with controlled rate and the patient is on beta blockers with metoprolol and Eliquis. Systolic heart failure with ejection fraction of 35-40%, seems to be compensated for now Anemia, no obvious acute blood loss Lactic acidemia, improving, and the lactic acid level is normalized Right middle lobe pulmonary nodule measuring 7 mm, recommended follow-up in 3-6 months History of nonischemic cardiomyopathy with an EF of 20-25%, estimated on most recently available echocardiogram done on September,. Status post implantation of AICD Hyperlipidemia Benign essential hypertension BPH Gram-positive cocci in the blood, likely a contaminant, would like to repeat blood cultures Plan: We'll keep the patient nothing by mouth Provide the patient incentive spirometer Persistent pneumothorax on the right no need for another chest tube insertion a nd will do to monitoring the pneumothorax on the right. That she was OB kept in place. Persistent air leak through the chest tube and thoravent. Despite the air leak, the patient is oxygenating well and he has adequate ventilation, tubes will be kept in place Monitor the right-sided pneumothorax, slightly improved compared to yesterday Continue IV Zosyn Patient is currently on a combination of bronchodilators, budesonide, formoterol, and IV Solu-Medrol throughout the Solu-Medrol dose of 20 mg every 12 hours Patient is hypertensive and we'll continue the metoprolol and and the patient was given lisinopril and will add Norvasc 10 mg by mouth daily and monitor the blood pressure control. Bedside swallow evaluation Heparin for DVT prophylaxis Protonix for GI prophylaxis DNR/DNI CODE STATUS Prognosis poor. Obviously the patient on a surgical candidate because of his age and significant comorbidities and his advanced lung disease. We'll continue monitoring this patient and managing him conservatively. We'll keep the tubes in place. Family is aware. I discussed the case with the daughter on multiple occasions. His cor status remains DNR/DNI. I'm going to have another discussion with the family. Obviously, with his inability to swallow, profound weakness, profound debility and poor baseline performance of functional status, is going to be very difficult for this patient to overcome his medical problems and as such hospice care may not be an unreasonable option for this patient. With forced the family again and we'll see the reaction to make further decisions. Provide the patient incentive spirometer We'll continue to follow critical care evaluation done in > 30 min.
[2023-02-26 08:41] LABS: African American GFR (CKD) >90 (>60 ml/min/1.73 sqM); Anion Gap 2 mmol/L; Blood Urea Nitrogen 40 mg/dL (9-20); Calcium 8.8 mg/dL (8.4-10.2); Carbon Dioxide 40 mmol/L (22-30); Chloride 105 mmol/L (98-107); Glucose 133 mg/dL (74-99); Magnesium 2.2 mg/dL (1.6-2.3); Non-African American GFR(CKD) 80 (>60 ml/min/1.73 sqM); Potassium 4.1 mmol/L (3.5-5.1); Sodium 147 mmol/L (137-145)
[2023-02-26] MEDS: FORMOTEROL FUMARATE 20 MCG/2 ML NEBU INHALATION SCH (08:56)
[2023-02-26] MEDS: BUDESONIDE 1 MG/2 ML NEBU INHALATION SCH (08:56)
[2023-02-26] MEDS: IPRATROPIUM-ALBUTEROL 3 ML NEB INHALATION SCH ×3 (08:56→15:59)
[2023-02-26] MEDS ORDERED: methylPREDNISolone SOD SUCCI 40 MG/ML 1 ML VIAL IV SCH (09:00)
[2023-02-26 09:19] VITALS: TEMP 97.4
--- NOTE | 2023-02-26 09:30 | P.PN ---
Subjective Progress Note Date: 02/26/23 PROGRESS NOTE The patient is an 82-year-old male with a known history of severe nonischemic cardiomyopathy, post cardiac catheterization in 2013, chronic persistent atrial fibrillation, status post ICD implantation and severe COPD who presented with symptoms of progressive dyspnea in route to the hospital he had PEA cardiac arrest underwent CPR was intubated and was found to have evidence of moderate ri ght sided pneumothorax. He underwent placement of ThoraVent and chest tube.. He was in atrial fibrillation. Initially he was on vasopressors was subsequently stopped. Patient has a known history of significant COPD with FEV1 of 44%. He is sedated, intubated, in atrial fibrillation. His ventricular rate is controlled. His blood pressure is stable and his urinary output is stable. On presentation his troponin was normal and his NT proBNP was 3400. His plasma lactic acid was elevated. He had no evidence of ventricular ectopic activity. It is unclear when he was evaluated in the office last time. February 22 The patient remains intubated, he continues to have the from has chest tube was persistent pneumothorax. He has placement of another tube. He continues to be in atrial fibrillation with controlled ventricular response. The patient has a known history of severe COPD. He has a known history of cardiomyopathy. He had an echocardiogram that showed an ejection fraction of 35-40% with moderate pulmonary hypertension and moderate tricuspid regurgitation. The study was suboptimal. February 23: The patient remains intubated and sedated. He is in atrial fibrillation with controlled ventricular response. His heart rate was up slightly earlier but back in the 80s to 90s. He is on no vasopressors. He continues to have air leak through his chest tube. There is no evidence of ventricular ectopic activity. His urine output stable. He underwent placement of a Thoravent yesterday. His chest x-ray shows improvement in his pneumothorax. February 24: The patient is extubated, feels better, continues to be in atrial fibrillation, had episodes of rapid ventricle response. He was started on IV amiodarone. His urine output has been stable. He continues to have a chest tube and Thoravent. Subcutaneous emphysema is noted. He denies any chest discomfort, nausea or vomiting. He is on no vasopressors. February 25: The patient is more dyspneic today, his chest x-ray shows expansion of his right pneumothorax with collapse of the lung. He is on nonrebreather. He continues to be in atrial fibrillation with controlled ventricular response. He is awake but feels weak. He denies any chest discomfort. He is on no vasopressors. The family decided on DO NOT RESUSCITATE status. February 26: The patient continues to be in atrial fibrillation, rate controlled. He continues to have a chest tube and a Thoravent with 30% pneumothorax. He has subcutaneous emphysema. He is weak. He denies any chest discomfort, dizziness or palpitations. His blood pressure is on the high side. He denies any nausea or vomiting. There is no evidence of ventricular ectopic activity. Medications: Metoprolol 50 mg twice a, Lipitor 20 mg daily, Eliquis 2.5 mg twice a day, Solu- Medrol, lisinopril 10 mg twice a day, amlodipine 10 mg daily PHYSICAL EXAMINATION: Blood pressure 159/90 heart rate 100, alert and oriented LUNGS: Decreased air exchange, more on the right side, chest tube in place, sub cutaneous emphysema HEART: Irregular rate and rhythm, S1, S2. No S3. Systolic Ejection murmur, ICD in the left subclavian area ABDOMEN: Soft, positive bowel sounds, no organomegaly EXTREMETIES: No edema LAB: Hemoglobin 11.1, WBC 25.7, BUN 40, creatinine 0.85, potassium 4.1 IMPRESSION: 1. Cardiac arrest with recurrent PEA, stable at this time, stable 2. Respiratory failure with spontaneous right sided thorax, extubated, with recurrent pneumothorax in spite of chest tube and Thoravent 3. Chronic persistent atrial fibrillation, anticoagulated, with episodes of rapid ventricle response, rate control at this point 4. Nonischemic cardiomyopathy, post ICD 5. Hypertension 6. Severe COPD 7. Generalized weakness PLAN: 1. From the cardiac standpoint continue on the present therapy 2. Prognosis is poor because of the recurrent pneumothorax. Patient is not a candidate for surgical intervention Objective - Vital Signs Vital signs: Vital Signs Temp 97.4 F L 02/26/23 08:00 Pulse 105 H 02/26/23 09:10 Resp 12 02/26/23 09:10 BP 159/106 02/26/23 09:00 Pulse Ox 99 02/26/23 09:00 FiO2 40 02/23/23 12:00 Intake & Output 02/25/23 02/26/23 02/26/23 18:59 06:59 18:59 Intake Total 337 136 6 Output Total 847 780 150 Balance -510 -644 -144 Weight 57.7 kg Intake: IV 219 36 6 Art Line 39 36 6 Piperacillin-Tazobactam 3 100 .375 gm In Sodium Chloride 0.9% 100 ml @ 25 mls/hr IVPB Q8H [facility] Rx#: [id number] Sodium Chloride 0.9% 1, 80 000 ml @ 75 mls/hr IV . [id number] [facility] Rx#:[id number] Oral 118 100 Output: Chest Tube Drainage 27 30 Chest Tube Upper Lateral 9 15 Chest Thora-Vent Right Upper 18 15 Anterior Chest Urine 820 750 150 Other: Voiding Method Indwelling Catheter Indwelling Catheter Indwelling Catheter ABP, PAP, CO, CI - Last Documented Arterial Blood Pressure 173/89 - Labs CBC & Chem 7: 02/26/23 08:15 02/26/23 08:15 Labs: Abnormal Lab Results - Last 24 Hours (Table) 02/25/23 02/25/23 02/26/23 Range/Units 12:05 17:32 00:36 WBC (3.8-10.6) k/uL RBC (4.30-5.90) m/uL Hgb (13.0-17.5) gm/dL Hct (39.0-53.0) % MCV (80.0-100.0) fL MCHC (31.0-37.0) g/dL Sodium (137-145) mmol/L Carbon Dioxide (22-30) mmol/L BUN (9-20) mg/dL Glucose (74-99) mg/dL POC Glucose (mg/dL) 122 H 114 H 145 H (70-110) mg/dL 02/26/23 02/26/23 02/26/23 Range/Units 05:15 08:15 08:15 WBC 25.7 H (3.8-10.6) k/uL RBC 3.58 L (4.30-5.90) m/uL Hgb 11.1 L (13.0-17.5) gm/dL Hct 36.7 L (39.0-53.0) % MCV 102.7 H (80.0-100.0) fL MCHC 30.3 L (31.0-37.0) g/dL Sodium 147 H (137-145) mmol/L Carbon Dioxide 40 H (22-30) mmol/L BUN 40 H (9-20) mg/dL Glucose 133 H (74-99) mg/dL POC Glucose (mg/dL) 129 H (70-110) mg/dL Microbiology - Last 24 Hours (Table) 02/22/23 10:48 Blood Culture - Preliminary Blood
[2023-02-26] MEDS: APIXABAN 2.5 MG TABLET PO SCH (09:46)
[2023-02-26] MEDS: PANTOPRAZOLE 40 MG/10 ML VIAL IV SCH (09:46)
[2023-02-26] MEDS: METOPROLOL TARTRATE 50 MG TAB PO SCH (09:46)
[2023-02-26] MEDS: amLODIPine 10 MG TAB PO SCH (09:46)
[2023-02-26] MEDS: lisinopriL 10 MG TAB PO SCH (09:46)
--- NOTE | 2023-02-26 10:06 | P.PN ---
Subjective Progress Note Date: 02/26/23 Patient is an 82-year-old male with atrial fibrillation, systolic congestive heart failure, COPD, hypertension, and prior AICD implantation who presented to the ER in severe respiratory distress. Patient had an out of hospital PEA arrest with CPR delivered by EMS for approximately 1 minute. On arrival there vital signs were significantly abnormal with a pulse of 144, respiratory rate of 10, and O2 sat of 84% on room air. He was emergently intubated. Initial chest x-ray showed right-sided pneumothorax. Initial EKG showed atrial fibrillation with rapid ventricular response. CT chest was completed which showed moderate right-sided pneumothorax, nasogastric tube in the esophagus, left long infectious or inflammatory process, right middle lobe pulmonary nodule, severe emphysematous changes, severe atherosclerosis, and colonic diverticulosis. Patient had a right-sided thoravent placed and then a chest tube. Initial laboratory analysis was remarkable for white blood cell count 11.7, hemoglobin 8.5, BUN 49, lactic acid 2.1, blood sugar 190. COVID-19 testing was negative. BNP was elevated at 3400. Initial troponin was negative at 0.012. Patient was started on bronchodilators, Zosyn, and was subsequently admitted to the ICU. He did require levophed for less than 24 hours. Critical care was consulted. Cardiology was consulted for A. fib. Patient had worsening of their pneumothorax after removal of the thoravent. Thoravent was replaced into the right chest cavity on the morning of 02/22/23. Echocardiogram ejection fraction 35-40%, moderate pulmonary hypertension, moderate tricuspid regurgitation. He was weaned from the vent on 02/23 and initially had improvement in oxygenation. His Pneumothorax got worse and chest tube and thorvaent was continued. He was seen by speech therapy on several different occasions and was unable to pass a swallow study. Echocardiogram ejection fraction 35-40%, moderate pulmonary hypertension, moderate tricuspid regurgitation. Patient seen and examined at bedside. He continues to want to eat and drink, I again told him that he is having difficulty swallowing. He denies any pain. Vital signs reviewed General: Ill-appearing, cachectic with temporal and buccal wasting Cardiovascular: S1S2 reg, no murmur, positive posterior tibial pulse bilateral, Lungs: Decreased bs right with crepitus over chest wall, no rhonchi, no rales ,+ accessory muscle use Abdominal: soft, nontender to palpation, no guarding, no appreciable organomegaly Ext: + gross muscle atrophy, no edema b/l lower extremities, no contractures Neuro: CN II-XII grossly intact, no focal neuro deficits. Psych: awake, alert Assessment/Plan: Right-sided pneumothorax status post thorvent and Chest tube on 02/20/23, thoravent removed on 02/21 and then replaced. Acute exacerbation of COPD Possible left-sided pneumonia with septic shock Acute on chronic hypoxic respiratory failure Coag ag negative staph in Blood culture confirmed contaminant -Zosyn 3.375 g IV every 8 hours D # 7 -Case discussed with Dr. Eduardo. Patient is overall poor prognosis and is not a surgical candidate due to his advanced age and underlying severe lung disease. Continue with conservative management. Hospice care is not unreasonable. -Continue with scheduled and when necessary DuoNeb, Pulmicort, and periformis Atrial fibrillation Status post PEA arrest Compensated systolic congestive heart failure, last known EF 40-45% -Cardiology note reviewed: Continue current therapy -Metoprolol 25 mg by mouth twice daily -Eliquis 2.5 mg twice daily has been restarted -off lasix -Lipitor 10 mg at nightly Dysphagia -Patient has been seen on 2 different occasions by speech therapy and until he can participate in a modified barium swallow and is stable to go down for such he is nothing by mouth as per recommendations -We have been letting him have some clustered sips and chips at the patient's family request. They are aware that he has a high risk for aspiration. Hypernatremia Contraction alkalosis -Suspect secondary to decreased oral intake -Start D5 half normal at 75 mL/h Anemia, suspect due to chronic disease -Follow CBC Chronic: Hypertension Prior myocardial infarction BPH Chronic O2 dependency at 3 L Back pain Imaging: Chest x-ray is reviewed by myself shows continued right sided pneumothorax at approximately 30-40%, slight improvement from yesterday Data Review: Labs reviewed and remarkable for white blood cell count 25.7, hemoglobin 11.1, sodium 147, carbon dioxide 40, BUN 40, creatinine 0.85 Vitals reviewed temperature 97.4, pulse 104, respirations 12, blood pressure 159/106, O2 sat 99% on 4 L -Await family to arrive at Hospital to discuss goals of care further. DVT prophylaxis: SCDs Anticipated discharge date: Pending Clinical Course Anticipated discharge place: Pending Clinical Course This dictation was prepared using [employer] voice recognition software. Though every attempt is made to correct errors during dictation some may still exist. Objective - Vital Signs Vital signs: Vital Signs Temp 97.4 F L 02/26/23 08:00 Pulse 101 H 02/26/23 09:17 Resp 12 02/26/23 09:17 BP 159/106 02/26/23 09:00 Pulse Ox 99 02/26/23 09:00 FiO2 40 02/23/23 12:00 Intake & Output 02/25/23 02/26/23 02/26/23 18:59 06:59 18:59 Intake Total 337 136 6 Output Total 847 780 150 Balance -510 -644 -144 Weight 57.7 kg Intake: IV 219 36 6 Art Line 39 36 6 Piperacillin-Tazobactam 3 100 .375 gm In Sodium Chloride 0.9% 100 ml @ 25 mls/hr IVPB Q8H [facility] Rx#: [id number] Sodium Chloride 0.9% 1, 80 000 ml @ 75 mls/hr IV . [id number] [facility] Rx#:[id number] Oral 118 100 Output: Chest Tube Drainage 27 30 Chest Tube Upper Lateral 9 15 Chest Thora-Vent Right Upper 18 15 Anterior Chest Urine 820 750 150 Other: Voiding Method Indwelling Catheter Indwelling Catheter Indwelling Catheter ABP, PAP, CO, CI - Last Documented Arterial Blood Pressure 173/89 - Labs CBC & Chem 7: 02/26/23 08:15 02/26/23 08:15 Labs: Abnormal Lab Results - Last 24 Hours (Table) 02/25/23 02/25/23 02/26/23 Range/Units 12:05 17:32 00:36 WBC (3.8-10.6) k/uL RBC (4.30-5.90) m/uL Hgb (13.0-17.5) gm/dL Hct (39.0-53.0) % MCV (80.0-100.0) fL MCHC (31.0-37.0) g/dL Sodium (137-145) mmol/L Carbon Dioxide (22-30) mmol/L BUN (9-20) mg/dL Glucose (74-99) mg/dL POC Glucose (mg/dL) 122 H 114 H 145 H (70-110) mg/dL 02/26/23 02/26/23 02/26/23 Range/Units 05:15 08:15 08:15 WBC 25.7 H (3.8-10.6) k/uL RBC 3.58 L (4.30-5.90) m/uL Hgb 11.1 L (13.0-17.5) gm/dL Hct 36.7 L (39.0-53.0) % MCV 102.7 H (80.0-100.0) fL MCHC 30.3 L (31.0-37.0) g/dL Sodium 147 H (137-145) mmol/L Carbon Dioxide 40 H (22-30) mmol/L BUN 40 H (9-20) mg/dL Glucose 133 H (74-99) mg/dL POC Glucose (mg/dL) 129 H (70-110) mg/dL Microbiology - Last 24 Hours (Table) 02/22/23 10:48 Blood Culture - Preliminary Blood
[2023-02-26] MEDS ORDERED: DEXTROSE 5%-0.45% NACL 1,000 ML IV SCH (10:15)
[2023-02-26 11:28] LABS: Glucose,Whole Blood 141 mg/dL (70-110)
--- NOTE | 2023-02-26 14:46 | P.PN ---
Progress Note - Text Progress Note Date: 02/26/23 Advanced Care Planning: Diagnoses: Dysphagia, pneumthorax, COPD, Systoic CHF Discussion: Person(s) present and participating in discussion: Daughter, sons Summary: We discussed that he has not had any significant improvement in his pneumothorax, that he continues to remain unsafe to swallow but wanted to eat. We discussed that we have reached an impass because he is not appropriate candidate for any surgical intervention but continues to have a pneumothorax. Daughter is adamant that her father would never want a feeding tube with his dysphasia. They would like to consider hospice and will discuss with her father. A total of 17 minutes of face to face time was spent discussing advanced care planning.
[2023-02-26 15:27] VITALS: BP 167/105
[2023-02-26 16:08] VITALS: PULSE 94; RESP 18
--- NOTE | 2023-02-26 16:08 | P.DS ---
Providers Date of admission: 02/20/23 18:06 Expected date of discharge: 02/26/23 Attending physician: Sirena Stack MD Consults: 02/20/23 18:06 Consult Physician Routine Consulting Provider: Rylan Blair Consult Reason/Comments: a fib Do you want consulting provider notified?: Yes Consult Physician Stat Consulting Provider: Contreras Farah Consult Reason/Comments: Critical care Do you want consulting provider notified?: Already Contacted Primary care physician: Della Lin MD Hospital Course: Discharge Diagnosis: Right-sided pneumothorax status post thorvent and Chest tube on 02/20/23, thoravent removed on 02/21 and then replaced. 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 Patient had an out of hospital PEA arrest with CPR delivered by EMS for approximately 1 minute. On arrival there vital signs were significantly abnormal with a pulse of 144, respiratory rate of 10, and O2 sat of 84% on room air. He was emergently intubated. Initial chest x-ray showed right-sided pneumothorax. Initial EKG showed atrial fibrillation with rapid ventricular response. CT chest was completed which showed moderate right-sided pneumothorax, nasogastric tube in the esophagus, left long infectious or inflammatory process, right middle lobe pulmonary nodule, severe emphysematous changes, severe atherosclerosis, and colonic diverticulosis. Patient had a right-sided thoravent placed and then a chest tube. Initial laboratory analysis was remarkable for white blood cell count 11.7, hemoglobin 8.5, BUN 49, lactic acid 2.1, blood sugar 190. COVID-19 testing was negative. BNP was elevated at 3400. Initial troponin was negative at 0.012. Patient was started on bronchodilators, Zosyn, and was subsequently admitted to the ICU. He did require levophed for less than 24 hours. Critical care was consulted. Cardiology was consulted for A. fib. Patient had worsening of their pneumothorax after removal of the thoravent. Thoravent was replaced into the right chest cavity on the morning of 02/22/23. Echocardiogram ejection fraction 35-40%, moderate pulmonary hypertension, moderate tricuspid regurgitation. He was weaned from the vent on 02/23 and initially had improvement in oxygenation. His Pneumothorax got worse and chest tube and thorvaent was continued. He was seen by speech therapy on several different occasions and was unable to pass a swallow study. Echocardiogram ejection fraction 35-40%, moderate pulmonary hypertension, moderate tricuspid regurgitation. He was unable to pass a swallow study and was made nothing by mouth. He continued to suffer from a pneumothorax that was not improving and was considered to be not a surgical candidate due to his advanced COPD and age. After discussion with his family elected to sign-on to general inpatient hospice. For physical exam see progress note same date A total of 32 minutes of time were spent preparing this complex discharge summary. Patient was discharged on 02/26/23. This dictation was prepared using [employer] voice recognition software. Though every attempt is made to correct errors during dictation some may still exist. Discharge Diagnosis: Right-sided pneumothorax status post thorvent and Chest tube on 02/20/23, thoravent removed on 02/21 and then replaced. 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 Patient had an out of hospital PEA arrest with CPR delivered by EMS for approximately 1 minute. On arrival there vital signs were significantly abnormal with a pulse of 144, respiratory rate of 10, and O2 sat of 84% on room air. He was emergently intubated. Initial chest x-ray showed right-sided pneumothorax. Initial EKG showed atrial fibrillation with rapid ventricular response. CT chest was completed which showed moderate right-sided pneumothorax, nasogastric tube in the esophagus, left long infectious or inflammatory process, right middle lobe pulmonary nodule, severe emphysematous changes, severe atherosclerosis, and colonic diverticulosis. Patient had a right-sided thoravent placed and then a chest tube. Initial laboratory analysis was remarkable for white blood cell count 11.7, hemoglobin 8.5, BUN 49, lactic acid 2.1, blood sugar 190. COVID-19 testing was negative. BNP was elevated at 3400. Initial troponin was negative at 0.012. Patient was started on bronchodilators, Zosyn, and was subsequently admitted to the ICU. He did require levophed for less than 24 hours. Critical care was consulted. Cardiology was consulted for A. fib. Patient had worsening of their pneumothorax after removal of the thoravent. Thoravent was replaced into the right chest cavity on the morning of 02/22/23. Echocardiogram ejection fraction 35-40%, moderate pulmonary hypertension, moderate tricuspid regurgitation. He was weaned from the vent on 02/23 and initially had improvement in oxygenation. His Pneumothorax got worse and chest tube and thorvaent was continued. He was seen by speech therapy on several different occasions and was unable to pass a swallow study. He continued to suffer from a pneumothorax that was not improving and was considered to be not a surgical candidate due to his advanced COPD and age. After discussion with his family elected to sign-on to general inpatient hospice. For physical exam see progress note same date A total of 32 minutes of time were spent preparing this complex discharge summary. Patient was discharged on 02/26/23. This dictation was prepared using [employer] recognition software. Though every attempt is made to correct errors during dictation some may still exist. For physical exam see progress note same date A total of 32 minutes of time were spent preparing this complex discharge summary. Patient was discharged on 02/26/23. This dictation was prepared using [employer] recognition software. Though every attempt is made to correct errors during dictation some may still exist. Patient Condition at Discharge: Critical Plan - Discharge Summary Discharge Rx Participant: Yes New Discharge Prescriptions: No Action HYDROcodone/APAP 10-325MG [[place] 10-325] 1 tab PO Q6H PRN PRN Reason: Pain Albuterol Sulfate [Proventil Hfa] 2 puff INHALATION RT-QID PRN PRN Reason: Shortness Of Breath Apixaban [Eliquis] 5 mg PO BID Atorvastatin [Lipitor] 10 mg PO HS Ferrous Sulfate [Feosol] 325 mg PO BID Tamsulosin HCl [Flomax] 0.4 mg PO DAILY Zinc Gluconate [Zinc] 50 mg PO DAILY Ascorbic Acid [Vitamin C] 1,000 mg PO DAILY Potassium Gluconate 99 mg PO DAILY Albuterol Nebulized [Ventolin Nebulized] 2.5 mg INHALATION RT-Q4H PRN PRN Reason: Shortness Of Breath Tiotropium 2.5 Mcg/Puff [Spiriva Respimat 2.5 Mcg] 2 puff INHALATION RT-DAILY Budesonide [Pulmicort] 0.5 mg INHALATION RT-BID Famotidine 40 mg PO DAILY Cholecalciferol [Vitamin D3 (125 Mcg = 5000 Iu)] 250 mcg PO DAILY Multivit-Min/FA/Lycopen/Lutein [Centrum Silver Men Tablet] 1 tab PO DAILY Pramipexole [Mirapex] 0.25 mg PO HS Fluticasone Propion/Salmeterol [Wixela 500-50 Inhub] 1 puff INHALATION RT-BID Cyanocobalamin (Vitamin B-12) [Vitamin B-12] 1,000 mcg PO DAILY Furosemide [Lasix] 40 mg PO DAILY Montelukast [Singulair] 10 mg PO DAILY Metoprolol Succinate (ER) [Toprol XL] 12.5 mg PO BID Discharge Medication List HYDROcodone/APAP 10-325MG [[place] 10-325] 1 tab PO Q6H PRN 08/12/14 [History] Albuterol Sulfate [Proventil Hfa] 2 puff INHALATION RT-QID PRN 09/21/16 [History] Apixaban [Eliquis] 5 mg PO BID 01/21/17 [History] Atorvastatin [Lipitor] 10 mg PO HS 01/21/17 [History] Ferrous Sulfate [Feosol] 325 mg PO BID 01/21/17 [History] Tamsulosin HCl [Flomax] 0.4 mg PO DAILY 01/21/17 [History] Albuterol Nebulized [Ventolin Nebulized] 2.5 mg INHALATION RT-Q4H PRN 02/20/23 [History] Ascorbic Acid [Vitamin C] 1,000 mg PO DAILY 02/20/23 [History] Budesonide [Pulmicort] 0.5 mg INHALATION RT-BID 02/20/23 [History] Cholecalciferol [Vitamin D3 (125 Mcg = 5000 Iu)] 250 mcg PO DAILY 02/20/23 [History] Cyanocobalamin (Vitamin B-12) [Vitamin B-12] 1,000 mcg PO DAILY 02/20/23 [History] Famotidine 40 mg PO DAILY 02/20/23 [History] Fluticasone Propion/Salmeterol [[place] 500-50 Inhub] 1 puff INHALATION RT-BID 02/20/23 [History] Furosemide [Lasix] 40 mg PO DAILY 02/20/23 [History] Metoprolol Succinate (ER) [Toprol XL] 12.5 mg PO BID 02/20/23 [History] Montelukast [Singulair] 10 mg PO DAILY 02/20/23 [History] Multivit-Min/FA/Lycopen/Lutein [Centrum Silver Men Tablet] 1 tab PO DAILY 02/20/23 [History] Potassium Gluconate 99 mg PO DAILY 02/20/23 [History] Pramipexole [Mirapex] 0.25 mg PO HS 02/20/23 [History] Tiotropium 2.5 Mcg/Puff [Spiriva Respimat 2.5 Mcg] 2 puff INHALATION RT-DAILY 02/20/23 [History] Zinc Gluconate [Zinc] 50 mg PO DAILY 02/20/23 [History] Follow up Appointment(s)/Referral(s): Della Lin MD [Primary Care Provider] - 1-2 days
--- NOTE | 2023-03-01 13:13 | CDI ---
Documentation Clarification Form Date: 03/01/2023 12:57:54 PM From: Zaida Rodgers Phone: Admit Date: 02/20/2023 06:06:00 PM Patient Name: Murphy Davidson Visit Number: [id number] Discharge Date: 02/26/2023 04:33:00 PM ATTENTION: The Clinical Documentation Specialists (CDI) and [facility] Coding Staff appreciate your assistance in clarifying documentation. Please respond to the clarification below the line at the bottom and electronically sign. The CDI & [facility] Coding staff will review the response and follow-up if needed. Please note: Queries are made part of the Legal Health Record. If you have any questions, please contact the author of this message via ITS. Dr. Almas Eduardo Malnutrition is documented per Dr. Lucero Progress Note 02/23/23. Additional clarification regarding the severity of malnutrition is requested. History/Risk Factors: 82yo M, RT pneumothorax, Centrilobular emphysema, PHTN, HTN w CSHF, PNA wseptic shock, ACH/HRF w [id number], A Fib, Dysphagia, Hypernatremia, Contractionalkalosis Clinical Indicators: Current BMI: 17.7 Muscle Wasting: grossmuscle atrophy; cachecticwith temporal and buccalwasting Progress Note 02/21/23 Treatment: Unable to feed the patient and the patient hasdeclinedany form ofenteral nutritionvia [place] with aPEG tubeorNG tube. Progress Note 02/26/23 PPN/TPN: Initiateenteral feedingfor nutritional support Please clarify the severity of malnutrition, if known: [ ] Mild Protein-Calorie Malnutrition [ ] Moderate Protein-Calorie Malnutrition [ x ] Severe Protein-Calorie Malnutrition [ ] Malnutrition, unknown severity [ ] Other condition, please specify [ ] Unable to Determine Reference: Using the ASPEN Guidelines, Undernutrition (Malnutrition) is characterized by at least two of the following six findings. The severity can be determined based on the criteria listed below. Malnutrition Characteristics for Moderate and Severe Malnutrition Type of Malnutrition Acute Illness or Injury Chronic Illness Degree of Malnutrition Non-severe (moderate) Malnutrition Severe Malnutrition Non-severe (moderate) Malnutrition Severe Malnutrition Energy Intake <75% for >7 days = 50% for = 5 days <75% for = 1 month =75% for = 1 month Weight Loss 1-2% in one week, 5% in 1 month, 7.5% in 3 months 2% in one week, >5% in 1 month, >7.5% in 3 months 5% in one month, 7.5% in 3 months, 10% in 6 months, 20% in 1 year >5% in one month, >7.5% in 3 months, >10% in 6 months, >20% in 1 year Body Fat Wasting Mild Moderate Mild Severe Muscle Wasting Mild Moderate Mild Severe Presence of Edema Mild Moderate to Severe Mild Severe Bail Bonding Agent Strength Not applicable Measurably Reduced Not applicable Measurably Reduced Source: Andreia PazV, Brando P, Gan G, et al. Consensus statement: Academy of Nutrition and Dietetics and [place] [employer] for Parenteral and Enteral Nutrition: characteristics recommended for the identification and documentation of adult malnutrition (undernutrition). TAYLER Paz Parenter Enteral Nutr. 2012; 36(3):275-283. (Template Last Revised: February 2023) MTDD
== END 2023-02-26 16:33 | disposition hospice, inpatient (51) | DRG 871 ==
LOC: EC 12:10 → 2SICU 18:06
PROVIDERS: ADMIT Family Medicine; ATTEND Family Medicine
PROC: 02HV33Z Insertion of Infusion Device into Superior Vena Cava, Percutaneous Approach (ICD-10-PCS; principal; 2023-02-20)
PROC: 5A1945Z Respiratory Ventilation, 24-96 Consecutive Hours (ICD-10-PCS; 2023-02-20)
PROC: 3E043XZ Introduction of Vasopressor into Central Vein, Percutaneous Approach (ICD-10-PCS; 2023-02-20)
PROC: 0BH18EZ Insertion of Endotracheal Airway into Trachea, Via Natural or Artificial Opening Endoscopic (ICD-10-PCS; 2023-02-20)
PROC: 0W9930Z Drainage of Right Pleural Cavity with Drainage Device, Percutaneous Approach (ICD-10-PCS; 2023-02-20)
PROC: 0D9670Z Drainage of Stomach with Drainage Device, Via Natural or Artificial Opening (ICD-10-PCS; 2023-02-20)
PROC: 03HY32Z Insertion of Monitoring Device into Upper Artery, Percutaneous Approach (ICD-10-PCS; 2023-02-21)
PROC: 4A133B1 Monitoring of Arterial Pressure, Peripheral, Percutaneous Approach (ICD-10-PCS; 2023-02-21)
PROC: 4A133J1 Monitoring of Arterial Pulse, Peripheral, Percutaneous Approach (ICD-10-PCS; 2023-02-21)
PROC: 3E0G76Z Introduction of Nutritional Substance into Upper GI, Via Natural or Artificial Opening (ICD-10-PCS; 2023-02-22)
DX: A41.9 Sepsis, unspecified organism (principal); E43 Unspecified severe protein-calorie malnutrition; G93.41 Metabolic encephalopathy; J96.21 Acute and chronic respiratory failure with hypoxia; J96.22 Acute and chronic respiratory failure with hypercapnia; R65.21 Severe sepsis with septic shock; J18.9 Pneumonia, unspecified organism; T17.818A Gastric contents in other parts of respiratory tract causing other injury, initial encounter; I42.8 Other cardiomyopathies; T79.7XXA Traumatic subcutaneous emphysema, initial encounter; E87.20 Acidosis, unspecified; E87.0 Hyperosmolality and hypernatremia; E87.3 Alkalosis; I48.19 Other persistent atrial fibrillation; J93.82 Other air leak; I50.22 Chronic systolic (congestive) heart failure; J98.19 Other pulmonary collapse; Z66 Do not resuscitate; Z51.5 Encounter for palliative care; J43.2 Centrilobular emphysema; I27.20 Pulmonary hypertension, unspecified; I11.0 Hypertensive heart disease with heart failure; D63.8 Anemia in other chronic diseases classified elsewhere; Z86.74 Personal history of sudden cardiac arrest; Z99.81 Dependence on supplemental oxygen; Z68.1 Body mass index [BMI] 19.9 or less, adult; E86.0 Dehydration; I07.1 Rheumatic tricuspid insufficiency; N40.0 Benign prostatic hyperplasia without lower urinary tract symptoms; M41.9 Scoliosis, unspecified; M54.30 Sciatica, unspecified side; R13.10 Dysphagia, unspecified; E78.5 Hyperlipidemia, unspecified; R91.1 Solitary pulmonary nodule; K57.30 Diverticulosis of large intestine without perforation or abscess without bleeding; I70.90 Unspecified atherosclerosis; F17.210 Nicotine dependence, cigarettes, uncomplicated; I45.10 Unspecified right bundle-branch block; H91.90 Unspecified hearing loss, unspecified ear; Z20.822 Contact with and (suspected) exposure to COVID-19; Z79.01 Long term (current) use of anticoagulants; Z95.810 Presence of automatic (implantable) cardiac defibrillator; Z87.01 Personal history of pneumonia (recurrent); Z79.899 Other long term (current) drug therapy; I25.2 Old myocardial infarction; Z80.42 Family history of malignant neoplasm of prostate
CPT/HCPCS: 31500; 32551; 36415; 71045; 71260; 80048; 80053; 81001; 82728; 82805; 83540; 83550; 83605; 83735; 83880; 84132; 84145; 84484; 85025; 85027; 85610; 85730; 87040; 87070; 87205; 87449; 87635; 93005; 93306; 94002; 94003; 94640; 94660; 94760; 96365; 96366; 96368; 96375; 99291; 99292

== ENCOUNTER 2023-02-26 15:33 | Inpatient (IN) | payer MEDICAID, MEDICARE, OTHER ==
[2023-02-26] MEDS ORDERED: GLYCOPYRROLATE 0.2 MG/ML 2 ML VIAL IVP PRN (15:44)
[2023-02-26] MEDS ORDERED: MORPHINE SULFATE 2 MG/ML SYRINGE IV PRN (15:44)
[2023-02-26] MEDS ORDERED: ACETAMINOPHEN SUPPOSITORY 650 MG SUPP RECTAL PRN (15:44)
[2023-02-26] MEDS ORDERED: LORazepam 2 MG/ML INJ IV PRN (15:44)
[2023-02-26] MEDS ORDERED: ATROPINE OPHTH SOLN 1% 5ML BTL SUBLINGUAL PRN (15:44)
[2023-02-26] MEDS ORDERED: SCOPOLAMINE 1 MG/72 HR PATCH TRANSDERM PRN (17:00)
[2023-02-26] MEDS: MORPHINE SULFATE (100 MG/2 ML) 100 MG in SODIUM CHLORIDE 0.9% 100 ML IV SCH (17:29)
[2023-02-26 19:49] VITALS: RESP 12
[2023-02-26 23:47] VITALS: BP 134/83; PULSE 98; TEMP 98.5
--- NOTE | 2023-02-27 09:27 | P.HPIM ---
History of Present Illness H&P Date: 02/27/23 Patient is an 82-year-old male with atrial fibrillation, systolic congestive heart failure, COPD, hypertension, and prior AICD implantation who presented to the ER in severe respiratory distress. He had a prolonged hospital stay from where he continued to have significant right-sided pneumothorax that was unresponsive to both Lipitor event and chest tube within the right lung, he had significant dysphagia and was unable to pass a barium swallow study. Family elected for hospice care. Patient was admitted to GI and a hospice on 02/26/23. Patient seen and examined at bedside. He denies any pain, no shortness of breath, doing well this morning. Communicates by nodding his head. Vital signs reviewed General: nontoxic, no distress, appears at stated age Derm: warm, dry Eyes: EOMI, no lid lag, anicteric sclera, pupils equal round reactive to light ENT: Nose and ears atraumatic, no thrush, no pharyngeal erythema Cardiovascular: S1S2 reg, no murmur, positive posterior tibial pulse bilateral, no edema, capillary refill less than 2 seconds Lungs: clear to auscultation bilateral, no rhonchi, no rales, no wheeze, no accessory muscle use Abdominal: soft, nontender to palpation, no guarding, no appreciable organomegaly, normal bowel sounds Ext: no gross muscle atrophy, muscle strength 5 out of 5 in all 4 extremities, no contractures Neuro: CN II-XII grossly intact, light touch intact all 4 extremities, finger to nose within normal limits, Psych: Alert, oriented, appropriate affect Assessment: Right-sided pneumothorax status with thorvent and Chest tube on 02/20/23 Acute exacerbation of COPD Possible left-sided pneumonia with septic shock Acute on chronic hypoxic respiratory failure Coag ag negative staph in Blood culture confirmed contaminant Atrial fibrillation Status post PEA arrest Compensated systolic congestive heart failure, last known EF 40-45% Dysphagia Hypernatremia Contraction alkalosis Anemia, suspect due to chronic disease Hypertension Prior myocardial infarction BPH 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 Though every attempt is made to correct errors during dictation some may still exist. Past Medical History Past Medical History: Atrial Fibrillation, Asthma, COPD, Hypertension, Myocardial Infarction (CT), Osteoarthritis (OA), Pneumonia, Prostate Disorder Additional Past Medical History / Comment(s): See Dr Luo H & P, rash on top of head, O2 -3 LITERS N/C,PREVIOUSLY NOTED THAT PT HAD HX OF CT PT WAS'NT AWARE OF THIS. BACK PAIN, SCIATIC NERVE PAIN, ASTHMA/BRNCHITIS, DDD,SCOLIOSIS Last Myocardial Infarction Date:: 2012 History of Any Multi-Drug Resistant Organisms: None Reported Past Surgical History: AICD, Heart Catheterization, Tonsillectomy Additional Past Surgical History / Comment(s): cardioversion, cataracts removed, left hand pink finger surgery Past Anesthesia/Blood Transfusion Reactions: Motion Sickness Additional Past Anesthesia/Blood Transfusion Reaction / Comment(s): PT HAS NEVER HAD A BLOOD TRANSFUSION. Type of Cardiac Device: AICD Device Placement Date:: 2014 Past Psychological History: No Psychological Hx Reported Additional Psychological History / Comment(s): PT LIVES ALONE WITH HIS DOG. HIS . HE is INDEPENDENT. HE DRIVES A CAR. Smoking Status: Smoker, current status unknown Past Alcohol Use History: None Reported Additional Past Alcohol Use History / Comment(s): STARTED SMOKING AT AGE 13 SMOKED 1 PPD BUT HAS DECREASED AMOUNT TO 3-4 PER DAY Past Drug Use History: None Reported - Past Family History Father Family Medical History: Cancer, Prostate Disorder Additional Family Medical History / Comment(s): FATHER HAD PROSTATE CANCER Mother Family Medical History: No Reported History Additional Family Medical History / Comment(s): MOTHER IS ALIVE AT 94 AND IN EXCELLENT HEALTH. Medications and Allergies Home Medications Medication Instructions Recorded Confirmed Type HYDROcodone/APAP 10-325MG [[place] 1 tab PO Q6H PRN 08/12/14 02/20/23 History 10-325] Albuterol Sulfate [Proventil Hfa] 2 puff INHALATION RT-QID PRN 09/21/16 02/20/23 History Apixaban [Eliquis] 5 mg PO BID 01/21/17 02/20/23 History Atorvastatin [Lipitor] 10 mg PO HS 01/21/17 02/20/23 History Ferrous Sulfate [Feosol] 325 mg PO BID 01/21/17 02/20/23 History Tamsulosin HCl [Flomax] 0.4 mg PO DAILY 01/21/17 02/20/23 History Albuterol Nebulized [Ventolin 2.5 mg INHALATION RT-Q4H PRN 02/20/23 02/20/23 History Nebulized] Ascorbic Acid [Vitamin C] 1,000 mg PO DAILY 02/20/23 02/20/23 History Budesonide [Pulmicort] 0.5 mg INHALATION RT-BID 02/20/23 02/20/23 History Cholecalciferol [Vitamin D3 (125 250 mcg PO DAILY 02/20/23 02/20/23 History Mcg = 5000 Iu)] Cyanocobalamin (Vitamin B-12) 1,000 mcg PO DAILY 02/20/23 02/20/23 History [Vitamin B-12] Famotidine 40 mg PO DAILY 02/20/23 02/20/23 History Fluticasone Propion/Salmeterol 1 puff INHALATION RT-BID 02/20/23 02/20/23 History [Wixela 500-50 Inhub] Furosemide [Lasix] 40 mg PO DAILY 02/20/23 02/20/23 History Metoprolol Succinate (ER) [Toprol 12.5 mg PO BID 02/20/23 02/20/23 History XL] Montelukast [Singulair] 10 mg PO DAILY 02/20/23 02/20/23 History Multivit-Min/FA/Lycopen/Lutein 1 tab PO DAILY 02/20/23 02/20/23 History [Centrum Silver Men Tablet] Potassium Gluconate 99 mg PO DAILY 02/20/23 02/20/23 History Pramipexole [Mirapex] 0.25 mg PO HS 02/20/23 02/20/23 History Tiotropium 2.5 Mcg/Puff [Spiriva 2 puff INHALATION RT-DAILY 02/20/23 02/20/23 History Respimat 2.5 Mcg] Zinc Gluconate [Zinc] 50 mg PO DAILY 02/20/23 02/20/23 History Allergies Allergy/AdvReac Type Severity Reaction Status Date / Time lisinopril AdvReac Bleeding Verified 02/20/23 15:03 warfarin AdvReac Bleeding Verified 02/20/23 15:03 Physical Exam Osteopathic Statement: *. No significant issues noted on an osteopathic structural exam other than those noted in the History and Physical/Consult. Vitals: Vital Signs Temp Pulse Resp BP Pulse Ox 02/27/23 08:27 95 02/27/23 00:00 12 02/26/23 23:44 98.5 F 98 12 134/83 88 L 02/26/23 19:49 12 02/26/23 19:46 97.5 F L 12 133/86 95 02/26/23 19:14 97.6 F 17 140/83 92 L Intake and Output 02/26/23 02/27/23 02/27/23 22:59 06:59 14:59 Intake Total 1.292 0 Output Total 100 200 Balance -98.708 -200 Intake: Intake, IV Titration 1.292 Amount Morphine Sulfate (100 mg/ 1.292 2 ml) 100 mg In Sodium Chloride 0.9% 100 ml @ 1 MG/HR 1.02 mls/hr IV . Q[facility]H [facility] Rx#:[id number] Oral 0 Output: Urine 100 200 Other: Voiding Method Indwelling Catheter Indwelling Catheter Indwelling Catheter Weight 57.7 kg
[2023-02-27] MEDS: MORPHINE SULFATE (100 MG/2 ML) 100 MG in SODIUM CHLORIDE 0.9% 100 ML IV SCH (13:05)
--- NOTE | 2023-02-27 13:58 | P.DS ---
Providers Date of admission: 02/26/23 16:34 Expected date of discharge: 02/27/23 Attending physician: Gretel Callahan DO Primary care physician: Gretel Callahan DO Hospital Course: Discharge Diagnosis: Right-sided pneumothorax status with thorvent and Chest tube on 02/20/23 Acute exacerbation of COPD Possible left-sided pneumonia with septic shock Acute on chronic hypoxic respiratory failure Coag ag negative staph in Blood culture confirmed contaminant Atrial fibrillation Status post PEA arrest Compensated systolic congestive heart failure, last known EF 40-45% Dysphagia Hypernatremia Contraction alkalosis Anemia, suspect due to chronic disease Hypertension Prior myocardial infarction BPH 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 He had a prolonged hospital stay from where he continued to have significant right-sided pneumothorax that was unresponsive to both Lipitor event and chest tube within the right lung, he had significant dysphagia and was unable to pass a barium swallow study. Family elected for hospice care. Patient was admitted to [facility] hospice on 02/26/23. He wasstarted on a morphine gtt and passed peacefully on 02/27/23. This dictation was prepared using [employer] voice recognition software. Though every attempt is made to correct errors during dictation some may still exist. Plan - Discharge Summary New Discharge Prescriptions: No Action HYDROcodone/APAP 10-325MG [[place] 10-325] 1 tab PO Q6H PRN PRN Reason: Pain Albuterol Sulfate [Proventil Hfa] 2 puff INHALATION RT-QID PRN PRN Reason: Shortness Of Breath Apixaban [Eliquis] 5 mg PO BID Atorvastatin [Lipitor] 10 mg PO HS Ferrous Sulfate [Feosol] 325 mg PO BID Tamsulosin HCl [Flomax] 0.4 mg PO DAILY Zinc Gluconate [Zinc] 50 mg PO DAILY Ascorbic Acid [Vitamin C] 1,000 mg PO DAILY Potassium Gluconate 99 mg PO DAILY Albuterol Nebulized [Ventolin Nebulized] 2.5 mg INHALATION RT-Q4H PRN PRN Reason: Shortness Of Breath Tiotropium 2.5 Mcg/Puff [Spiriva Respimat 2.5 Mcg] 2 puff INHALATION RT-DAILY Budesonide [Pulmicort] 0.5 mg INHALATION RT-BID Famotidine 40 mg PO DAILY Cholecalciferol [Vitamin D3 (125 Mcg = 5000 Iu)] 250 mcg PO DAILY Multivit-Min/FA/Lycopen/Lutein [Centrum Silver Men Tablet] 1 tab PO DAILY Pramipexole [Mirapex] 0.25 mg PO HS Fluticasone Propion/Salmeterol [Wixela 500-50 Inhub] 1 puff INHALATION RT-BID Cyanocobalamin (Vitamin B-12) [Vitamin B-12] 1,000 mcg PO DAILY Furosemide [Lasix] 40 mg PO DAILY Montelukast [Singulair] 10 mg PO DAILY Metoprolol Succinate (ER) [Toprol XL] 12.5 mg PO BID Discharge Medication List HYDROcodone/APAP 10-325MG [[place] 10-325] 1 tab PO Q6H PRN 08/12/14 [History] Albuterol Sulfate [Proventil Hfa] 2 puff INHALATION RT-QID PRN 09/21/16 [History] Apixaban [Eliquis] 5 mg PO BID 01/21/17 [History] Atorvastatin [Lipitor] 10 mg PO HS 01/21/17 [History] Ferrous Sulfate [Feosol] 325 mg PO BID 01/21/17 [History] Tamsulosin HCl [Flomax] 0.4 mg PO DAILY 01/21/17 [History] Albuterol Nebulized [Ventolin Nebulized] 2.5 mg INHALATION RT-Q4H PRN 02/20/23 [History] Ascorbic Acid [Vitamin C] 1,000 mg PO DAILY 02/20/23 [History] Budesonide [Pulmicort] 0.5 mg INHALATION RT-BID 02/20/23 [History] Cholecalciferol [Vitamin D3 (125 Mcg = 5000 Iu)] 250 mcg PO DAILY 02/20/23 [History] Cyanocobalamin (Vitamin B-12) [Vitamin B-12] 1,000 mcg PO DAILY 02/20/23 [History] Famotidine 40 mg PO DAILY 02/20/23 [History] Fluticasone Propion/Salmeterol [Wixela 500-50 Inhub] 1 puff INHALATION RT-BID 02/20/23 [History] Furosemide [Lasix] 40 mg PO DAILY 02/20/23 [History] Metoprolol Succinate (ER) [Toprol XL] 12.5 mg PO BID 02/20/23 [History] Montelukast [Singulair] 10 mg PO DAILY 02/20/23 [History] Multivit-Min/FA/Lycopen/Lutein [Centrum Silver Men Tablet] 1 tab PO DAILY 02/20/23 [History] Potassium Gluconate 99 mg PO DAILY 02/20/23 [History] Pramipexole [Mirapex] 0.25 mg PO HS 02/20/23 [History] Tiotropium 2.5 Mcg/Puff [Spiriva Respimat 2.5 Mcg] 2 puff INHALATION RT-DAILY 02/20/23 [History] Zinc Gluconate [Zinc] 50 mg PO DAILY 02/20/23 [History]
== END 2023-02-27 17:32 | disposition expired | DRG 951 ==
LOC: 2SICU 16:34 → 5NMEDONC 23:27
PROVIDERS: ADMIT Internal Medicine; ATTEND Internal Medicine
DX: Z51.5 Encounter for palliative care (principal); J18.9 Pneumonia, unspecified organism; J96.21 Acute and chronic respiratory failure with hypoxia; A41.9 Sepsis, unspecified organism; R65.21 Severe sepsis with septic shock; J93.9 Pneumothorax, unspecified; J44.0 Chronic obstructive pulmonary disease with (acute) lower respiratory infection; J44.1 Chronic obstructive pulmonary disease with (acute) exacerbation; I50.22 Chronic systolic (congestive) heart failure; E87.0 Hyperosmolality and hypernatremia; E87.3 Alkalosis; I48.91 Unspecified atrial fibrillation; Z66 Do not resuscitate; F17.210 Nicotine dependence, cigarettes, uncomplicated; M54.9 Dorsalgia, unspecified; N40.0 Benign prostatic hyperplasia without lower urinary tract symptoms; I11.0 Hypertensive heart disease with heart failure; D63.8 Anemia in other chronic diseases classified elsewhere; M41.9 Scoliosis, unspecified; R13.10 Dysphagia, unspecified; Z79.01 Long term (current) use of anticoagulants; Z95.810 Presence of automatic (implantable) cardiac defibrillator; Z99.81 Dependence on supplemental oxygen; Z79.899 Other long term (current) drug therapy; Z63.4 Disappearance and death of family member; I25.2 Old myocardial infarction; Z88.3 Allergy status to other anti-infective agents; Z88.8 Allergy status to other drugs, medicaments and biological substances; Z86.74 Personal history of sudden cardiac arrest
CPT/HCPCS: 94760